=== PATIENT | female | born 1990 | race Caucasian/White ===

== ENCOUNTER 2017-12-14 02:17 | Inpatient (IN) | payer BC ==
[2017-12-13 10:39] LABS: RPR Titer ND
[2017-12-13 10:42] LABS: Absolute Lymphocytes (CBC) 1.9 K/uL (0.7-4.9); Absolute Neutrophil 10.5 K/uL (1.8-8.0); Basophils % 0.3 % (0-1.3); Eosinophils % 0.3 % (0-4.4); Hematocrit 39.8 % (36.0-45.0); Lymphocytes % 14.2 % (15.3-44.8); MCH 30.4 pg (27.0-35.0); MPV 9.6 fL (7.6-11.3); Monocytes % 7.6 % (3.3-12.3); RBC Red Blood Cell Count 4.47 M/uL (3.86-4.86)
[2017-12-13 10:44] LABS: Urine Appearance CLEAR; Urine Bilirubin NEGATIVE (NEG); Urine Blood NEGATIVE (NEG); Urine Color YELLOW; Urine Glucose NEGATIVE (NEG); Urine Protein NEGATIVE (NEG); Urine Urobilinogen 0.2 mg/dL (0.2-1.0)
[2017-12-13 10:49] LABS: Urine Microscopic Reflex ORDER UMIC
[2017-12-13 10:56] LABS: Urine RBC NONE SEEN /HPF (NONE SEEN)
[2017-12-13 10:57] LABS: Urine Bacteria 20-50 /HPF (<20)
[2017-12-13 10:58] LABS: Urine Culture Reflex Order REFLEXED
--- NOTE | 2017-12-13 14:47 | PREOPHP ---
Date of Admission: 12/14/2017 History Of Present Illness: Ms. Zhang is a 27-year-old female, 2, para 1- 0-0-1 at 39+ weeks gestation. She is admitted for repeat section. She has been followed by me during this without significant complications other than prior section. Past Medical History: Please see record. Family History: Please see record. Review of Systems: She reports no recent cough, cold, fever, or chills. No recent nausea or vomiting. She denies any b reast lumps. She denies any bowel or bladder issues. Physical Examination: General: Reveals female in no apparent distress. Neck: Supple without adenopathy or thyromegaly. Lungs: Clear. Cardiac: Regular rate and rhythm without murmurs. Breasts: Not examined. Abdomen: Estimated weight of approximately 8+ pounds. Pelvic: Not performed. Extremities: No cyanosis, clubbing, or edema. Impression: 39+ week , prior section. Plan: The patient will be admitted for delivery by repeat section. She has signed operativ e permit in my presence and appears to understand the risks and benefits. MARQUITA/CHERI Voice ID: [id number]
[2017-12-14 00:21] LABS: RPR (Rapid Plasma Reagin) NON-REACT (NON-REACT)
[~2017-12-14 02:17] MED LIST: Ringers Lactate 1,000 ML IV PRN
[2017-12-14] MEDS ORDERED: FAMOTIDINE 20 MG/2 ML VIAL IV ONE (02:20)
[2017-12-14] MEDS ORDERED: NA CIT/CITRIC AC 30 ML ORAL UDC PO ONE (02:20)
[2017-12-14 02:51] VITALS: BMI 36.6
[2017-12-14] MEDS ORDERED: CEFAZOLIN 2 GM in NA CHLORIDE 0.9% 100 ML IVPB SCH (03:00)
[2017-12-14] MEDS ORDERED: METOCLOPRAMIDE 10 MG/2mL INJ IV ONE (03:00)
[2017-12-14] MEDS ORDERED: Ringers Lactate 1,000 ML IV SCH (03:00)
[2017-12-14] MEDS ORDERED: CARBOPROST TROME 250 MCG/ML IM ONE (03:26)
[2017-12-14] MEDS ORDERED: METHYLERGONOVINE 0.2MG/ML AMP IM PRN ×2 (03:26→05:48)
[2017-12-14] MEDS ORDERED: CEFAZOLIN/SWI 2gm 2 GM/20 ML SYR ONE (04:17)
[2017-12-14] MEDS ORDERED: OXYTOCIN 10 UNIT/ML ML IV ONE (04:32)
[2017-12-14] MEDS ORDERED: MORPHINE SULFATE/PF 1 MG/ML (10 ML AMP) ONE (04:32)
[2017-12-14] MEDS ORDERED: BUPIVACAINE 0.75% (PF) 2 ML SP ONE (04:33)
[2017-12-14] MEDS ORDERED: LIDOCAINE 1% MPF 5 ML VIAL ONE (04:33)
[2017-12-14] MEDS ORDERED: Phenylephrine HCl 10 MG/ML 1 ML VIAL ONE (04:34)
[2017-12-14] MEDS ORDERED: EPHEDRINE SULF 50 MG/ML SYR ONE (04:55)
[2017-12-14] MEDS ORDERED: Oxycodone HCl/Acetaminophen 1 TAB TAB PO PRN (05:48)
[2017-12-14] MEDS ORDERED: ONDANSETRON 4 MG (ODT) TAB PO PRN (05:48)
[2017-12-14] MEDS ORDERED: METHYLERGONOVINE 0.2 MG TAB PO PRN (05:48)
[2017-12-14] MEDS ORDERED: KETOROLAC 30 MG/ML INJ IV PRN (05:48)
[2017-12-14] MEDS ORDERED: CARBOPROST TROME 250 MCG/ML IM PRN (05:48)
--- NOTE | 2017-12-14 05:51 | P.BOP ---
Preoperative diagnosis: 39+ week , prior , vaginal bleeding Postoperative diagnosis: Same, viable female , marginal abruption Primary procedure: Squeegee Tender: Yessenia Cantor Estimated blood loss: Less than 1000ml Specimen: placenta Anesthesia: Spinal Complications: None Drain(s): Urinary catheter Transferred to: Other (277) Condition: Good
[2017-12-14] MEDS ORDERED: PROMETHAZINE 25 MG/ML VIAL ONE (07:26)
[2017-12-14] MEDS ORDERED: PROMETHAZINE 25 MG/ML VIAL IV PRN (07:28)
[2017-12-14] MEDS ORDERED: NALOXONE 0.4 MG/ML VIAL IV PRN (07:29)
[2017-12-14] MEDS ORDERED: DIPHENHYDRAMINE 50 MG/ML VIAL IV PRN (07:29)
--- NOTE | 2017-12-14 18:57 | OP ---
Surgeon: Elfego Kirby MD Anesthesiologist: Dr. John. Preoperative Diagnoses: A 39+ week , prior section, possible placental abruption, spontaneous rupture of membranes. Postoperative Diagnoses: A 39+ week , prior section, possible placental abruption, spontaneous rupture of membranes with confirmed abruption. Procedure: Spinal block anesthesia, repeat section, delivery of viable female . Description Of Procedure: After a satisfactory level of spinal block anesthesia was obtained and the patient had received 2 g of Ancef for antibiotic prophylaxis, she was prepped and draped in the usua l fashion for abdominal surgery. A Pfannenstiel skin incision was made and carried down to the fasci a. Fascia was incised with a combination of sharp and blunt dissection. This was from the underlying rectus muscles. These were divided in the midline. Peritoneum entered bluntly. Vesicou terine peritoneum incised and bladder flap developed. A low-transverse uterine incision was made wit h the aid of short handled Piper forceps. A 7-pound 10 ounce female infant, 9 and 10 was deliv ered. The cord was milked toward the infant as blood clot in the cavity was noted consistent with pl acental abruption and cord blood. The cord was clamped, cut, and the placed in a warmer. Cor d blood was obtained. The placenta was manually removed, noted to have calcifications. The uterus w as then exteriorized. The cervix was dilated from above with a ring clamp, which was passed from the operative field. The uterus was closed in 2 layers utilizing 0 Vicryl suture in a running nonlockin g fashion. The second layer was used to imbricate the first. Vesicouterine peritoneum was reapproxi mated after suturing small hematoma that was forming with a [id number] suture of 0 Vicryl and wa s forming on the left margin of the incision. The uterus was returned to the peritoneal cavity, whic h was cleaned of amniotic fluid, debris, and blood clot. The rectus muscles were approximated in mid line with simple sutures of 0 Vicryl. The fascia was closed with a running suture of #1 Vicryl from either margin to the middle. The skin closed with subcutaneous sutures of 3-0 Vicryl, subdermal sutu re of 3-0 Vicryl, and subcuticular suture of 4-0 Monocryl. The patient was taken to the recovery efrain m in satisfactory condition with Lebron catheter in place. Pharmacy Delivery Driver Surgeon: Marvin Cantor M.D. Estimated Total Blood Loss: Less than 1000 cc. The patient tolerated the procedure well. Sponge and needle counts were correct x2. MARQUITA/CHERI Voice ID: [id number] Report ID: [id number]
[2017-12-14] MEDS: OXYTOCIN/LR 20 UNIT/1,000 ML BAG IV SCH (21:00)
[2017-12-14] MEDS: Oxycodone HCl/Acetaminophen 1 TAB TAB PO PRN (23:06)
[2017-12-15 04:30] LABS: HBsAG Nonreactive (Nonreactive)
[2017-12-15] MEDS: OXYTOCIN/LR 20 UNIT/1,000 ML BAG IV SCH (04:30)
[2017-12-15 05:41] LABS: Absolute Lymphocytes (CBC) 2.2 K/uL (0.7-4.9); Absolute Monocytes 0.8 K/uL (0.1-1.3); Absolute Neutrophil 7.2 K/uL (1.8-8.0); Basophils % 0.3 % (0-1.3); Eosinophils % 1.1 % (0-4.4); Hematocrit 31.6 % (36.0-45.0); Lymphocytes % 21.8 % (15.3-44.8); MCH 31.2 pg (27.0-35.0); MCV 89.2 fL (80-100); Monocytes % 7.5 % (3.3-12.3); RBC Red Blood Cell Count 3.54 M/uL (3.86-4.86)
--- NOTE | 2017-12-15 07:23 | P.PN ---
Date of Service: 12/15/17 S-No complains O-Afeb, vs stable, bandage dry, abdomen, mild gas distention, but soft A-Satisfactory P-D/C Iv, flores, ambulate, advance diet, Mylicon
[2017-12-15] MEDS: Oxycodone HCl/Acetaminophen 1 TAB TAB PO PRN ×4 (09:21→21:13)
[2017-12-15] MEDS ORDERED: IBUPROFEN 400 MG TAB PO PRN (22:15)
[2017-12-16 04:08] VITALS: TEMP 97.2
[2017-12-16] MEDS: Oxycodone HCl/Acetaminophen 1 TAB TAB PO PRN (06:18)
[2017-12-16 07:51] VITALS: BP 142/93
[2017-12-16] MEDS ORDERED: Tdap (Diph,Pertuss(Acell),Tet Vac) 0.5 ML SYR IMVAC ONE (08:11)
--- NOTE | 2017-12-17 08:42 | DS ---
Date of Discharge: 12/16/2017 DISMISSAL SUMMARY Final Hospital Discharge Diagnoses: 39+ week , delivered. Repeat section. Placen irma abruption. Complications: None. Procedures: Spinal block anesthesia, repeat section, delivery of viable female. Hospital Course: The patient is a 27-year-old female, 2, para 1-0-0-1 at 3 9+ weeks gestation, admitted on the day she was scheduled for repeat section with spontaneou s rupture of membranes and vaginal bleeding. She underwent repeat section and delivered a 7 -pound 10 ounce female . At the time of her section, small placental abruption was no [place]. Postoperative course was uncomplicated. Lab work included an admission hemoglobin and hematocr it of 13.6/39.8, dismissal 11.1/31.6. She is Rh positive blood type, rubella immune. She was to be seen back in my office in 1 week for incision check. Urine culture showed greater than 100,000 colon ies of mixed matthew. She was dismissed to continue taking her iron and vitamins with a presc ription for Tylenol No. 3 #15 for pain relief. MARQUITA/CHERI Voice ID: [id number] Report ID: [id number]
== END 2017-12-16 09:45 | disposition home or self-care (01) | DRG 766 ==
LOC: 2ND-WC 02:17
PROVIDERS: ADMIT Specialist; ATTEND Specialist
PROC: 10D00Z1 Extraction of Products of Conception, Low, Open Approach (ICD-10-PCS; principal; 2017-12-14 07:30)
DX: O45.003 Premature separation of placenta with coagulation defect, unspecified, third trimester (principal); Z3A.39 39 weeks gestation of pregnancy; Z37.0 Single live birth; Z23 Encounter for immunization
CPT/HCPCS: 36415; 81003; 81015; 85025; 86592; 86900; 86901; 87086; 87088; 87340; 88307; 90715; J0690; J2210; J2370; J2550; J2590; J2765

== ENCOUNTER 2020-11-14 15:24 | Emergency (ER) | payer BC ==
--- OUTSIDE RECORDS SUMMARY | 2020-11-14 15:28 | XMS REPORT | Continuity of Care Document ---
:1990 Author Organization [facility] t Address [address] [place] [address] Care Team Providers Name Role Phone Pob, Lab Main Attending Clinician Unavailable Femi LAZO Attending Clinician Sony Parkinson Attending Clinician Lab, Fam Pob I Attending Clinician Unavailable Payers Payer Name Policy Type Policy Number Effective Date Expiration Date S ource Problems This patient has no known problems. Allergies, Adverse Reactions, Alerts Allergy Allergy Status Severity Reaction(s) Onset Inactive Treating Comm ents Source Name Type Date Date Clinician No Known DA Active U 2019-0 [facility] Allergie 7-27 [facility] s 00:00: e 00 [facility] Medications This patient has no known medications. Procedures This patient has no known procedures. 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 Randall Martinez NDBRENDA [id number] 14:03:01 14:18:01 Visit Lab Main [place] [id number] [place] 4.2.7.2.686 Professio [phone] nal 353 Building 2020-06-19 2020-06-19 Hospital Miya Kahn [facility] [id number] 13:11:58 23:59:00 Encounter [place] [id number] [place] 4.2.7.2.686 [place] [phone] 2020-04-13 2020-04-13 Emergency James, [facility] [id number] 17:11:00 21:01:00 Miya Cardoza [place] [id number] [place] 4.2.7.2.686 [place] [phone] 2020-03-23 2020-03-23 Laboratory Lab, [facility] [id number] 10:01:52 10:21:52 Only Fam Pob I Health [id number] [place] 4.2.7.2.686 Professio [phone] nal [facility] Office Building One Results Test Description Test Time Test Comments Results Result Comments Source COVID 19 Asymptomatic IH AG 2019-11-29 13:40:00 Test Item Value Reference Range Interpretation Comme nts COVID 19 Asymptomatic IH AG (test code = COVNONPUIAG) NEGATIVE [id number] 13:21:00 RUN DATE: 11/28/19 MODLOFT PAGE 1 RUN TIME: 1321 Specimen Inquiry RUN USER: INTERFACE PATIENT: EMERALD OBANDO LOC: [facility]UZ[facility]O U #: [id number] AGE/SX: 29/F ROOM: [facility] RE11/27/19REG DR: Anastacio Abarca MD : 91 BED: A DIS: STATUS: ADM IN TLOC: SPEC #: [id number] RECD: 11/27/19 STATUS: ESTHELA RE #: [id number] SCARLET: 11/27/19- SUBM DR: Anastacio Abarca MD ENTERED: 11/27/19 SP TYPE: STOMACH OTHR DR: No Primary or Family Physician Uday Ferraro MDORDERED: GROSS COPIES TO: No Primary or Family Physician Anastacio Abarca MD [address] [place] [address] Uday Ferraro MD [address] [place] [address] PROCEDURES: GROSS (11/28/19-112) TISSUES: STOMACH, NOS - PORTION OF STOMACH CLINICAL HISTORY COLLECTION DATE: 11/27/19 MORBID OBESITY FINAL DIAGNOSIS Portion of stomach, laparoscopic sleeve gastrectomy: PORTION OF STOMACH, NO PATHOLOGIC ALTERATION DMW/sm D [id number] MACROSCOPIC The specimen is received in formalin, labeled with the patient's name, and identified as "portion of stomach". It consists of sleeve gastrectomy specimen measuring 17.0 x 4.0 cm with a wall thickness of up to 0.6 cm. The serosal surface is pink with congested vessels. The mucosal edge is stapled closed. A CONTINUED ON NEXT PAGE RUN DATE: 11/28/19 [facility] PAGE 2 RUN TIME: 1321 Specimen Inquiry RUN USER: INTERFACE SPEC #: [id number] PATIENT: EMERALD OBANDO #[id number] (Continued) MACROSCOPIC (Continued) small amount of unremarkable fatty tissue is attached to the opposite surface. The mucosal surface is dark pink withunremarkable folds. No areas of ulceration, nodules or polyps are identified. [employer] Associate tissue is submitted in a single cassette. GROSS PERFORMED AT [facility] [address] [place] [address] (p)[phone] MICROSCOPIC All of the stains, including any controls performed, stain appropriately. MICROSCOPIC PERFORMED AT [facility] [address] [place] [address] (p)[phone] PERFORMING SITE Diagnosis performed at: [facility], [place] [address] [id number] Signed SIGNATURE ON FILE Angela Chester MD 11/28/19 1321 END OF REPORT TSH REFLEX TO [id number] 07:36:00 Test Item Value Reference Range Interpretation Comments TSH REFLEX TO FT4 (test code = 1.0 0.4-5.5 N TSHREFLEX) BASIC METABOLIC [id number] 07:33:00 Test Item Value Reference Range Interpretation Comments SODIUM (test code = 141 mmol/L 136-145 N NA) POTASSIUM (test code 4.2 mmol/L 3.5-5.1 N = K) CHLORIDE (test code = 110.0 mmol/L 98-107 H CL) CARBON DIOXIDE (test 22.0 mmol/L 21-32 N code = CO2) ANION GAP (test code 13.2 10-20 N = GAP) GLUCOSE (test code = 83 mg/dL 74-106 N GLU) BLOOD UREA NITROGEN 8 mg/dL 7-18 N (test code = BUN) GLOMERULAR FILTRATION > 60 mL/min >=60 [place] GFR by RATE (test code = using Wyatt fied MDRD GFR) formula.Chronic kidney disease is defined as [facility] kidney damageor GFR <60 mL/min/1.73 m2 for >3 months. CREATININE (test code 0.70 mg/dL 0.55-1.02 N Note change in = CREAT) reference range due to change in reagent. BUN/CREATININE RATIO 11.3 10-20 N (test code = BUN/CREA) CALCIUM (test code = 9.0 mg/dL 8.5-10.1 N CA) BASIC METABOLIC [id number] 07:15:00 Test Item Value Reference Range Interpretation Comments SODIUM (test code = NA) 141 mmol/L 136-145 N POTASSIUM (test code = K) 4.2 mmol/L 3.5-5.1 N CHLORIDE (test code = CL) 110.0 mmol/L 98-107 H CARBON DIOXIDE (test code = CO2) mmol/L 21-32 ANION GAP (test code = GAP) 10-20 GLUCOSE (test code = GLU) mg/dL 74-106 BLOOD UREA NITROGEN (test code = mg/dL 7-18 BUN) GLOMERULAR FILTRATION RATE (test mL/min >=60 code = GFR) CREATININE (test code = CREAT) mg/dL 0.55-1.02 BUN/CREATININE RATIO (test code 10-20 = BUN/CREA) CALCIUM (test code = CA) mg/dL 8.5-10.1 CBC W/AUTO [id number] 06:54:00 Test Item Value Reference Range Interpretation Comments WHITE BLOOD CELL (test code = 12.1 K/mm3 4.5-12.5 N WBC) RED BLOOD CELL (test code = 4.29 mill/mm3 3.7-5.2 N RBC) HEMOGLOBIN (test code = HGB) 12.7 gram/dL 11.5-15.5 N HEMATOCRIT (test code = HCT) 37.7 % 36.0-46.0 N MEAN CELL VOLUME (test code = 87.9 fL 80-98 N MCV) MEAN CELL HGB (test code = MCH) 29.6 picogram 27.0-33.0 N MEAN CELL HGB CONCETRATION 33.7 gram/dL 33.0-36.0 N (test code = MCHC) RED CELL DISTRIBUTION WIDTH 12.2 % 11.6-16.2 N (test code = RDW) RED CELL DISTRIBUTION WIDTH SD 39.5 fL 37.0-51.0 N (test code = RDW-SD) PLATELET COUNT (test code = 224 K/mm3 150-450 N PLT) MEAN PLATELET VOLUME (test code 10.8 fL 6.7-11.0 N = MPV) NEUTROPHIL % (test code = NT%) 78.9 % 39.0-69.0 H IMMATURE GRANULOCYTE % (test 0.3 % 0.0-5.0 N code = IG%) LYMPHOCYTE % (test code = LY%) 12.4 % 25.0-55.0 L MONOCYTE % (test code = MO%) 8.2 % 0.0-10.0 N EOSINOPHIL % (test code = EO%) 0.0 % 0.0-5.0 N BASOPHIL % (test code = BA%) 0.2 % 0.0-1.0 N NUCLEATED RBC % (test code = 0.0 % 0-0 N NRBC%) NEUTROPHIL # (test code = NT#) 9.57 K/mm3 1.8-7.7 H IMMATURE GRANULOCYTE # (test 0.04 x10 3/uL 0-0.03 H code = IG#) LYMPHOCYTE # (test code = LY#) 1.51 K/mm3 1.0-5.0 N MONOCYTE # (test code = MO#) 1.00 K/mm3 0-0.8 H EOSINOPHIL # (test code = EO#) 0.00 K/mm3 0.0-0.5 N BASOPHIL # (test code = BA#) 0.02 K/mm3 0.0-0.2 N NUCLEATED RBC # (test code = 0.00 K/mm3 0.0-0.1 N NRBC#) [id number] 07:53:00 Test Item Value Reference Range Interpretation Comments GLUBED (test code = 68 mg/dL 74-106 L Performe d by certified GLUBED) 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 [facility] COMPREHENSIVE METABOLIC [id number] 14:08:00 Test Item Value Reference Range Interpretation Comments SODIUM (test code = 140 mmol/L 136-145 N NA) POTASSIUM (test code = 4.0 mmol/L 3.5-5.1 N K) CHLORIDE (test code = 107.0 mmol/L 98-107 N CL) CARBON DIOXIDE (test 28.0 mmol/L 21-32 N code = CO2) ANION GAP (test code = 9.0 10-20 L GAP) GLUCOSE (test code = 80 mg/dL 74-106 N GLU) BLOOD UREA NITROGEN 13 mg/dL 7-18 N (test code = BUN) GLOMERULAR FILTRATION > 60 mL/min >=60 [place] GFR by RATE (test code = GFR) using Modified MDRD formula.Chronic kidney disease is defined as eith er kidney damageor GFR <60 mL/min/1.73 m2 for >3 months. CREATININE (test code 0.70 mg/dL 0.55-1.02 N Note change in = CREAT) reference range due to change in reagent. BUN/CREATININE RATIO 17.5 10-20 N (test code = BUN/CREA) TOTAL PROTEIN (test 7.6 gram/dL 6.4-8.2 N code = PROT) ALBUMIN (test code = 3.9 g/dL 3.4-5.0 N ALB) GLOBULIN (test code = 3.7 gram/dL 2.7-4.2 N GLOB) ALBUMIN/GLOBULIN RATIO 1.1 0.75-1.50 N (test code = A/G) CALCIUM (test code = 9.0 mg/dL 8.5-10.1 N CA) BILIRUBIN TOTAL (test 0.50 mg/dL 0.0-1.0 N code = BILT) SGOT/AST (test code = 13 IUnit/L 15-37 L AST) SGPT/ALT (test code = 27 IUnit/L 12-78 N ALT) ALKALINE PHOSPHATASE 63 IUnit/L 45-117 N Note change in TOTAL (test code = reference range due ALKP) to change in reagent. PROTHROMBIN [id number] 14:05:00 Test Item Value Reference Range Interpretation Comments PROTHROMBIN TIME 12.6 seconds 9.0-14.0 N PATIENT (test code = PTP) INTERNATIONAL NORMAL 1.1 0.8-1.2 N The the rapeutic range RATIO (test code = for oral INR) anticoagulant t herapy formost indicat ions is an internati onal normalized rati o (INR)of between 2.0 and 3.0. The recommended therapeutic INR range for various cli nical situations is l isted below: Clinical Situat ion INR range Pulmonary embol ism treatment (2.0-3.0)Venou s thrombosis treatmentVenous thrombosis prophylaxis (hi gh risk surgery)Prevent ion of systemic emboli sm from: A cute myocardial infa rction Valvula r heart disease Atrial fibrilla tion Mechanical pros thetic heart valves (2.5-3.5) IS PATIENT ON ANTICOAGULANTS? NTHROMBOPLASTIN TIME [id number] 14:05:00 Test Item Value Reference Range Interpretation Comments THROMBOPLASTIN TIME PARTIAL 30.3 seconds 23.0-37.0 N (test code = PTT) IS PATIENT ON ANTICOAGULANTS? NCOMPREHENSIVE METABOLIC [id number] 14:01:00 Test Item Value Reference Range Interpretation Comments SODIUM (test code = NA) 140 mmol/L 136-145 N POTASSIUM (test code = K) 4.0 mmol/L 3.5-5.1 N CHLORIDE (test code = CL) 107.0 mmol/L 98-107 N CARBON DIOXIDE (test code = CO2) mmol/L 21-32 ANION GAP (test code = GAP) 10-20 GLUCOSE (test code = GLU) mg/dL 74-106 BLOOD UREA NITROGEN (test code = mg/dL 7-18 BUN) GLOMERULAR FILTRATION RATE (test mL/min >=60 code = GFR) CREATININE (test code = CREAT) mg/dL 0.55-1.02 BUN/CREATININE RATIO (test code 10-20 = BUN/CREA) TOTAL PROTEIN (test code = PROT) gram/dL 6.4-8.2 ALBUMIN (test code = ALB) g/dL 3.4-5.0 GLOBULIN (test code = GLOB) gram/dL 2.7-4.2 ALBUMIN/GLOBULIN RATIO (test 0.75-1.50 code = A/G) CALCIUM (test code = CA) mg/dL 8.5-10.1 BILIRUBIN TOTAL (test code = mg/dL 0.0-1.0 BILT) SGOT/AST (test code = AST) IUnit/L 15-37 SGPT/ALT (test code = ALT) IUnit/L 12-78 ALKALINE PHOSPHATASE TOTAL (test IUnit/L 45-117 code = ALKP) HCG SERUM [id number] 13:59:00 Test Item Value Reference Range Interpretation Comments HCG SERUM QUAL (test NEGATIVE NEGATIVE This GQL test is NOT code = HCGQL) applicable for MALE patients.Check with nurse about probable order error.If Tumor Marker Test needed, nu rse should order test "HCG TU"(Test #550.63225)---- - CBC W/AUTO [id number] 13:57:00 Test Item Value Reference Range Interpretation Comments WHITE BLOOD CELL (test code = K/mm3 4.5-12.5 WBC) RED BLOOD CELL (test code = RBC) mill/mm3 3.7-5.2 HEMOGLOBIN (test code = HGB) 13.5 gram/dL 11.5-15.5 N HEMATOCRIT (test code = HCT) 41.1 % 36.0-46.0 N MEAN CELL VOLUME (test code = fL 80-98 MCV) MEAN CELL HGB (test code = MCH) picogram 27.0-33.0 MEAN CELL HGB CONCETRATION (test gram/dL 33.0-36.0 code = MCHC) RED CELL DISTRIBUTION WIDTH % 11.6-16.2 (test code = RDW) RED CELL DISTRIBUTION WIDTH SD fL 37.0-51.0 (test code = RDW-SD) PLATELET COUNT (test code = PLT) 261 K/mm3 150-450 N MEAN PLATELET VOLUME (test code fL 6.7-11.0 = MPV) NEUTROPHIL % (test code = NT%) % 39.0-69.0 IMMATURE GRANULOCYTE % (test % 0.0-5.0 code = IG%) LYMPHOCYTE % (test code = LY%) % 25.0-55.0 MONOCYTE % (test code = MO%) % 0.0-10.0 EOSINOPHIL % (test code = EO%) % 0.0-5.0 BASOPHIL % (test code = BA%) % 0.0-1.0 NEUTROPHIL # (test code = NT#) K/mm3 1.8-7.7 LYMPHOCYTE # (test code = LY#) K/mm3 1.0-5.0 MONOCYTE # (test code = MO#) K/mm3 0-0.8 EOSINOPHIL # (test code = EO#) K/mm3 0.0-0.5 BASOPHIL # (test code = BA#) K/mm3 0.0-0.2 CBC W/AUTO [id number] 13:57:00 Test Item Value Reference Range Interpretation Comments WHITE BLOOD CELL (test code = 6.7 K/mm3 4.5-12.5 N WBC) RED BLOOD CELL (test code = 4.64 mill/mm3 3.7-5.2 N RBC) HEMOGLOBIN (test code = HGB) 13.5 gram/dL 11.5-15.5 N HEMATOCRIT (test code = HCT) 41.1 % 36.0-46.0 N MEAN CELL VOLUME (test code = 88.6 fL 80-98 N MCV) MEAN CELL HGB (test code = MCH) 29.1 picogram 27.0-33.0 N MEAN CELL HGB CONCETRATION 32.8 gram/dL 33.0-36.0 L (test code = MCHC) RED CELL DISTRIBUTION WIDTH 12.2 % 11.6-16.2 N (test code = RDW) RED CELL DISTRIBUTION WIDTH SD 39.3 fL 37.0-51.0 N (test code = RDW-SD) PLATELET COUNT (test code = 261 K/mm3 150-450 N PLT) MEAN PLATELET VOLUME (test code 11.1 fL 6.7-11.0 H = MPV) NEUTROPHIL % (test code = NT%) 62.6 % 39.0-69.0 N IMMATURE GRANULOCYTE % (test 0.1 % 0.0-5.0 N code = IG%) LYMPHOCYTE % (test code = LY%) 31.0 % 25.0-55.0 N MONOCYTE % (test code = MO%) 5.1 % 0.0-10.0 N EOSINOPHIL % (test code = EO%) 0.6 % 0.0-5.0 N BASOPHIL % (test code = BA%) 0.6 % 0.0-1.0 N NUCLEATED RBC % (test code = 0.0 % 0-0 N NRBC%) NEUTROPHIL # (test code = NT#) 4.21 K/mm3 1.8-7.7 N IMMATURE GRANULOCYTE # (test 0.01 x10 3/uL 0-0.03 N code = IG#) LYMPHOCYTE # (test code = LY#) 2.08 K/mm3 1.0-5.0 N MONOCYTE # (test code = MO#) 0.34 K/mm3 0-0.8 N EOSINOPHIL # (test code = EO#) 0.04 K/mm3 0.0-0.5 N BASOPHIL # (test code = BA#) 0.04 K/mm3 0.0-0.2 N NUCLEATED RBC # (test code = 0.00 K/mm3 0.0-0.1 N NRBC#) URINALYSIS [id number] 13:54:00 Test Item Value Reference Range Interpretation Comments UA COLOR (test code = COLU) Light-Yellow YELLOW UA APPEARANCE (test code = CLEAR CLEAR APPU) UA GLUCOSE DIPSTICK (test NEGATIVE mg/dL NEGATIVE code = DGLUU) UA BILIRUBIN DIPSTICK (test NEGATIVE mg/dL NEGATIVE code = BILU) UA KETONE DIPSTICK (test code NEGATIVE mg/dL NEGATIVE = KETU) UA SPECIFIC GRAVITY (test 1.024 1.001-1.035 code = SGU) UA BLOOD DIPSTICK (test code Negative mg/dL NEGATIVE = SUHAS) UA PH DIPSTICK (test code = 6.0 5.0-8.0 MARIO) UA PROTEIN DIPSTICK (test NEGATIVE mg/dL NEGATIVE code = PROU) UA UROBILINIOGEN DIPSTICK Normal mg/dL NEGATIVE (test code = URO) UA NITRITE DIPSTICK (test NEGATIVE NEGATIVE code = LISE) UA LEUKOCYTE ESTERASE W NEGATIVE Delvin/uL NEGATIVE REFLEX (test code = LEUUR) UA WBC (test code = WBCU) 0-5 per HPF 0-5 UA RBC (test code = RBCU) 0-2 #/HPF 0-5 UA EPITHELIAL CELLS (test FEW per HPF FEW code = EPIU) UA BACTERIA (test code = NONE SEEN #/HPF NONE BACU) UA MUCUS (test code = MUCU) FEW #/LPF FEW Urine Source? Clean CatchURINALYSIS [id number] 13:53:00 Test Item Value Reference Range Interpretation Comments UA COLOR (test code = COLU) Light-Yellow YELLOW UA APPEARANCE (test code = CLEAR CLEAR APPU) UA GLUCOSE DIPSTICK (test NEGATIVE mg/dL NEGATIVE code = DGLUU) UA BILIRUBIN DIPSTICK (test NEGATIVE mg/dL NEGATIVE code = BILU) UA KETONE DIPSTICK (test code NEGATIVE mg/dL NEGATIVE = KETU) UA SPECIFIC GRAVITY (test 1.024 1.001-1.035 code = SGU) UA BLOOD DIPSTICK (test code Negative mg/dL NEGATIVE = SUHAS) UA PH DIPSTICK (test code = 6.0 5.0-8.0 MARIO) UA PROTEIN DIPSTICK (test NEGATIVE mg/dL NEGATIVE code = PROU) UA UROBILINIOGEN DIPSTICK Normal mg/dL NEGATIVE (test code = URO) UA NITRITE DIPSTICK (test NEGATIVE NEGATIVE code = LISE) UA LEUKOCYTE ESTERASE W NEGATIVE Delvin/uL NEGATIVE REFLEX (test code = LEUUR) UA WBC (test code = WBCU) per HPF 0-5 UA RBC (test code = RBCU) per HPF 0-5 UA EPITHELIAL CELLS (test per HPF Few code = EPIU) UA BACTERIA (test code = per HPF NONE BACU) Urine Source? Clean CatchLIPID PROFILE (CORONARY RISK)[id number] 07:15:00 Test Item Value Reference Range Interpretation Comments TRIGLYCERIDES (test 230 mg/dL 20-150 H code = TRIG) CHOLESTEROL (test code 183 mg/dL 0-200 N = CHOL) CHOLESTEROL/HDL RATIO 5.0 RATIO 0-4.9 H RISK A SSOCIATED WITH (test code = CHOLHDL) CHOL/H DL RATIOS: Risk M christina Female1/[address] RAGE 3.43 3.27AVERAGE 4.97 4.4 43X AVERAGE 9[address] RAGE 23.39 11.04 REFERENCE VALUE IS RELATED TO RISK LEVELS ASRECOMMENDED B Y THE MERON. HEART, SOLA G, AND BLOOD INST. HDL CHOLESTEROL (test 33 mg/dL 40-60 L code = HDL) LIPOPROTEIN LDL (test 117 mg/dL 100-129 N RN PER IVELISSE, CONTACT code = LDL) PHYSICIAN IMMED IATELY IF THIS IS A ST ROKE, AMI OR CAROTID STENOSIS PATIEN T WHEN THE LDL >100 ([address] [facility]ENCE, THIS ADMISSION)===== ======= ======= ======= ===Reference In terval: mg/dL mmol/L-------- ------- ------- ------- Optimal <100 <2.6Near/above optimal 100-12 9 2.6-3.3Borderl ine High 130-159 3.4-4.1High 160 -189 4.1-4.9Very High >=190 >=4.9========= This LDL result is a direct measurement.=== ====== HEPATIC FUNCTION [id number] 07:15:00 Test Item Value Reference Range Interpretation Comments TOTAL PROTEIN (test 7.5 gram/dL 6.4-8.2 N code = PROT) ALBUMIN (test code = 4.1 g/dL 3.4-5.0 N ALB) GLOBULIN (test code = 3.4 gram/dL 2.7-4.2 N GLOB) ALBUMIN/GLOBULIN RATIO 1.2 0.75-1.50 N (test code = A/G) BILIRUBIN TOTAL (test 0.30 mg/dL 0.0-1.0 N code = BILT) BILIRUBIN DIRECT (test 0.08 mg/dL 0.0-0.20 N code = BILD) SGOT/AST (test code = 12 IUnit/L 15-37 L AST) SGPT/ALT (test code = 29 IUnit/L 12-78 N ALT) ALKALINE PHOSPHATASE 63 IUnit/L 45-117 N Note change in TOTAL (test code = reference range due ALKP) to change in reagent. HCG SERUM [id number] 07:15:00 Test Item Value Reference Range Interpretation Comments HCG SERUM QUAL (test NEGATIVE NEGATIVE This HC GQL test is NOT code = HCGQL) applicable for MALE patients.Check with nurse about probable order error.If Tumor Marker Test needed, nu rse should order test "HCG TU"(Test #[id number])---- - VITAMIN [id number] 07:15:00 Test Item Value Reference Range Interpretation Comments VITAMIN B12 (test code = VITB12) 690 pg/mL 193-986 N FOLIC [id number] 07:15:00 Test Item Value Reference Range Interpretation Comments FOLIC ACID (test code = FOL) 6.8 ng/mL 3.10-17.50 N THYROID PROFILE [id number] 07:15:00 Test Item Value Reference Range Interpretation Comments T3 UPTAKE (test code = 38.0 % 30.0-40.0 N T3UP) T4 (THYROXINE) (test 9.5 ug/dL 4.5-13.9 N code = T4) T7 (FREE THYROXINE 3.61 FTI 1.3-5.1 N INDEX) (test code = T7) THYROID STIMULATING 1.990 uIU/mL 0.36-3.74 N TSH REFE RENCE HORMONE (test code = RANGES: EUTHYROID: TSH) 0.35 - 4.3 mIU/mL HYPO : > 5.5 mIU/mL HYPER : < 0.35 mIU/mL VIT B1 WHOLE [id number] 07:15:00 Test Item Value Reference Range Interpretation Comments VIT B1 WHOLE BLOOD 146.9 nmol/L 66.5-200.0 Performed At: (test code = [facility] [id number]) [place], [place] [id number] aide Pastrana MD Ph:[phone] AB HIV 1 14:26:00 Test Item Value Reference Range Interpretation Comments AB HIV 1 2 Nonreactive NonReactive It is recognize d that (test code = currently avail able [id number]) assays for thed etection of antibodies t o HIV-1 and/or HIV-2 ma y notdetect all i nfected individuals. A negative test result barajas snot exclude the pos sibility of exposure to or infection withH IV. HIV antibodies may be undetectable in some stages ofthe in fection and in some cli nical conditions. LIPID PROFILE (CORONARY RISK)2019-11-13 13:04:00 Test Item Value Reference Range Interpretation Comments TRIGLYCERIDES (test 230 mg/dL 20-150 H code = TRIG) CHOLESTEROL (test code 183 mg/dL 0-200 N = CHOL) CHOLESTEROL/HDL RATIO 5.0 RATIO 0-4.9 H RISK A SSOCIATED WITH (test code = CHOLHDL) CHOL/H DL RATIOS: Risk M christina Female1/[address] RAGE 3.43 3.27AVERAGE 4.97 4.4 43X AVERAGE 9.[address] RAGE 23.39 11.04 REFERENCE VALUE IS RELATED TO RISK LEVELS ASRECOMMENDED B Y THE MERON. HEART, SOLA G, AND BLOOD INST. HDL CHOLESTEROL (test 33 mg/dL 40-60 L code = HDL) LIPOPROTEIN LDL (test 117 mg/dL 100-129 N RN PER IVELISSE, CONTACT code = LDL) PHYSICIAN IMMED IATELY IF THIS IS A ST ROKE, AMI OR CAROTID STENOSIS PATIEN T WHEN THE LDL >100 ([address] [facility]ENCE, THIS ADMISSION)===== ======= ======= ======= ===Reference In terval: mg/dL mmol/L-------- ------- ------- ------- Optimal <100 <2.6Near/above optimal 100-12 9 2.6-3.3Borderl ine High 130-159 3.4-4.1High 160 -189 4.1-4.9Very High >=190 >=4.9========= This LDL result is a direct measurement.=== ====== HEPATIC FUNCTION [id number] 13:04:00 Test Item Value Reference Range Interpretation Comments TOTAL PROTEIN (test 7.5 gram/dL 6.4-8.2 N code = PROT) ALBUMIN (test code = 4.1 g/dL 3.4-5.0 N ALB) GLOBULIN (test code = 3.4 gram/dL 2.7-4.2 N GLOB) ALBUMIN/GLOBULIN RATIO 1.2 0.75-1.50 N (test code = A/G) BILIRUBIN TOTAL (test 0.30 mg/dL 0.0-1.0 N code = BILT) BILIRUBIN DIRECT (test 0.08 mg/dL 0.0-0.20 N code = BILD) SGOT/AST (test code = 12 IUnit/L 15-37 L AST) SGPT/ALT (test code = 29 IUnit/L 12-78 N ALT) ALKALINE PHOSPHATASE 63 IUnit/L 45-117 N Note change in TOTAL (test code = reference range due ALKP) to change in reagent. HCG SERUM [id number] 13:04:00 Test Item Value Reference Range Interpretation Comments HCG SERUM QUAL (test NEGATIVE NEGATIVE This HC GQL test is NOT code = HCGQL) applicable for MALE patients.Check with nurse about probable order error.If Tumor Marker Test needed, nu rse should order test "HCG TU"(Test #[id number])---- - VITAMIN [id number] 13:04:00 Test Item Value Reference Range Interpretation Comments VITAMIN B12 (test code = VITB12) 690 pg/mL 193-986 N FOLIC [id number] 13:04:00 Test Item Value Reference Range Interpretation Comments FOLIC ACID (test code = FOL) 6.8 ng/mL 3.10-17.50 N THYROID PROFILE [id number] 13:04:00 Test Item Value Reference Range Interpretation Comments T3 UPTAKE (test code = 38.0 % 30.0-40.0 N T3UP) T4 (THYROXINE) (test 9.5 ug/dL 4.5-13.9 N code = T4) T7 (FREE THYROXINE 3.61 FTI 1.3-5.1 N INDEX) (test code = T7) THYROID STIMULATING 1.990 uIU/mL 0.36-3.74 N TSH REFE RENCE HORMONE (test code = RANGES: EUTHYROID: TSH) 0.35 - 4.3 mIU/mL HYPO : > 5.5 mIU/mL HYPER : < 0.35 mIU/mL VIT B1 WHOLE [id number] 13:04:00 Test Item Value Reference Range Interpretation Comments VIT B1 WHOLE BLOOD (test code = nmol/L 87-280 [id number]) URINALYSIS [id number] 12:59:00 Test Item Value Reference Range Interpretation Comments UA COLOR (test code = COLU) COLORLESS YELLOW A UA APPEARANCE (test code = CLEAR CLEAR APPU) UA GLUCOSE DIPSTICK (test NEGATIVE mg/dL NEGATIVE code = DGLUU) UA BILIRUBIN DIPSTICK (test NEGATIVE mg/dL NEGATIVE code = BILU) UA KETONE DIPSTICK (test NEGATIVE mg/dL NEGATIVE code = KETU) UA SPECIFIC GRAVITY (test 1.013 1.001-1.035 code = SGU) UA BLOOD DIPSTICK (test Negative mg/dL NEGATIVE code = SUHAS) UA PH DIPSTICK (test code = 5.5 5.0-8.0 MARIO) UA PROTEIN DIPSTICK (test NEGATIVE mg/dL NEGATIVE code = PROU) UA UROBILINIOGEN DIPSTICK Normal mg/dL NEGATIVE (test code = URO) UA NITRITE DIPSTICK (test NEGATIVE NEGATIVE code = LISE) UA LEUKOCYTE ESTERASE W NEGATIVE Delvin/uL NEGATIVE REFLEX (test code = LEUUR) UA WBC (test code = WBCU) 0-5 per HPF 0-5 UA RBC (test code = RBCU) 0-2 #/HPF 0-5 UA EPITHELIAL CELLS (test FEW per HPF FEW code = EPIU) UA BACTERIA (test code = NONE SEEN per HPF NONE BACU) Urine Source? Clean CatchLIPID PROFILE (CORONARY RISK)[id number] 12:55:00 Test Item Value Reference Range Interpretation Comments TRIGLYCERIDES (test 230 mg/dL 20-150 H code = TRIG) CHOLESTEROL (test code 183 mg/dL 0-200 N = CHOL) CHOLESTEROL/HDL RATIO 5.0 RATIO 0-4.9 H RISK A SSOCIATED WITH (test code = CHOLHDL) CHOL/H DL RATIOS: Risk M christina Female1/[address] RAGE 3.43 3.27AVERAGE 4.97 4.4 43X AVERAGE 9.[address] RAGE 23.39 11.04 REFERENCE VALUE IS RELATED TO RISK LEVELS ASRECOMMENDED B Y THE MER[facility]. HEART, SOLA G, AND BLOOD INST. HDL CHOLESTEROL (test 33 mg/dL 40-60 L code = HDL) LIPOPROTEIN LDL (test 117 mg/dL 100-129 N RN PER IVELISSE, CONTACT code = LDL) PHYSICIAN IMMED IATELY IF THIS IS A ST RO[place], AMI OR CAROTID STENOSIS PATIEN T WHEN THE LDL >100 ([address] OCCURENCE, THIS ADMISSION)===== ======= ======= ======= ===Reference In terval: mg/dL mmol/L-------- ------- ------- ------- Optimal <100 <2.6Near/above optimal 100-12 9 2.6-3.3Borderl ine High 130-159 3.4-4.1High 160 -189 4.1-4.9Very High >=190 >=4.9========= This LDL result is a direct measurement.=== ====== HEPATIC FUNCTION [id number] 12:55:00 Test Item Value Reference Range Interpretation Comments TOTAL PROTEIN (test 7.5 gram/dL 6.4-8.2 N code = PROT) ALBUMIN (test code = 4.1 g/dL 3.4-5.0 N ALB) GLOBULIN (test code = 3.4 gram/dL 2.7-4.2 N GLOB) ALBUMIN/GLOBULIN RATIO 1.2 0.75-1.50 N (test code = A/G) BILIRUBIN TOTAL (test 0.30 mg/dL 0.0-1.0 N code = BILT) BILIRUBIN DIRECT (test 0.08 mg/dL 0.0-0.20 N code = BILD) SGOT/AST (test code = 12 IUnit/L 15-37 L AST) SGPT/ALT (test code = 29 IUnit/L 12-78 N ALT) ALKALINE PHOSPHATASE 63 IUnit/L 45-117 N Note change in TOTAL (test code = reference range due ALKP) to change in reagent. HCG SERUM [id number] 12:55:00 Test Item Value Reference Range Interpretation Comments HCG SERUM QUAL (test code = HCGQL) NEGATIVE VITAMIN [id number] 12:55:00 Test Item Value Reference Range Interpretation Comments VITAMIN B12 (test code = VITB12) 690 pg/mL 193-986 N FOLIC [id number] 12:55:00 Test Item Value Reference Range Interpretation Comments FOLIC ACID (test code = FOL) 6.8 ng/mL 3.10-17.50 N THYROID PROFILE [id number] 12:55:00 Test Item Value Reference Range Interpretation Comments T3 UPTAKE (test code = 38.0 % 30.0-40.0 N T3UP) T4 (THYROXINE) (test 9.5 ug/dL 4.5-13.9 N code = T4) T7 (FREE THYROXINE 3.61 FTI 1.3-5.1 N INDEX) (test code = T7) THYROID STIMULATING 1.990 uIU/mL 0.36-3.74 N TSH REFE RENCE HORMONE (test code = RANGES: EUTHYROID: TSH) 0.35 - 4.3 mIU/mL HYPO : > 5.5 mIU/mL HYPER : < 0.35 mIU/mL VIT B1 WHOLE [id number] 12:55:00 Test Item Value Reference Range Interpretation Comments VIT B1 WHOLE BLOOD (test code = nmol/L 87-280 [id number]) URINALYSIS [id number] 12:53:00 Test Item Value Reference Range Interpretation Comments UA COLOR (test code = COLU) COLORLESS YELLOW A UA APPEARANCE (test code = CLEAR CLEAR APPU) UA GLUCOSE DIPSTICK (test NEGATIVE mg/dL NEGATIVE code = DGLUU) UA BILIRUBIN DIPSTICK (test NEGATIVE mg/dL NEGATIVE code = BILU) UA KETONE DIPSTICK (test code NEGATIVE mg/dL NEGATIVE = KETU) UA SPECIFIC GRAVITY (test 1.013 1.001-1.035 code = SGU) UA BLOOD DIPSTICK (test code Negative mg/dL NEGATIVE = SUHAS) UA PH DIPSTICK (test code = 5.5 5.0-8.0 MARIO) UA PROTEIN DIPSTICK (test NEGATIVE mg/dL NEGATIVE code = PROU) UA UROBILINIOGEN DIPSTICK Normal mg/dL NEGATIVE (test code = URO) UA NITRITE DIPSTICK (test NEGATIVE NEGATIVE code = LISE) UA LEUKOCYTE ESTERASE W NEGATIVE Delvin/uL NEGATIVE REFLEX (test code = LEUUR) UA WBC (test code = WBCU) per HPF 0-5 UA RBC (test code = RBCU) per HPF 0-5 UA EPITHELIAL CELLS (test per HPF Few code = EPIU) UA BACTERIA (test code = per HPF NONE BACU) Urine Source? Clean CatchCOMPREHENSIVE METABOLIC [id number] 12:29:00 Test Item Value Reference Range Interpretation Comments SODIUM (test code = 139 mmol/L 136-145 N NA) POTASSIUM (test code = 4.1 mmol/L 3.5-5.1 N K) CHLORIDE (test code = 108.0 mmol/L 98-107 H CL) CARBON DIOXIDE (test 25.0 mmol/L 21-32 N code = CO2) ANION GAP (test code = 10.1 10-20 N GAP) GLUCOSE (test code = 92 mg/dL 74-106 N GLU) BLOOD UREA NITROGEN 15 mg/dL 7-18 N (test code = BUN) GLOMERULAR FILTRATION > 60 mL/min >=60 [place] GFR by RATE (test code = GFR) using Modified MDRD formula.Chronic kidney disease is defined as [facility] kidney damageor GFR <60 mL/min/1.73 m2 for >3 months. CREATININE (test code 0.90 mg/dL 0.55-1.02 N Note change in = CREAT) reference range due to change in reagent. BUN/CREATININE RATIO 17.1 10-20 N (test code = BUN/CREA) TOTAL PROTEIN (test 8.0 gram/dL 6.4-8.2 N code = PROT) ALBUMIN (test code = 4.0 g/dL 3.4-5.0 N ALB) GLOBULIN (test code = 4.0 gram/dL 2.7-4.2 N GLOB) ALBUMIN/GLOBULIN RATIO 1.0 0.75-1.50 N (test code = A/G) CALCIUM (test code = 9.8 mg/dL 8.5-10.1 N CA) BILIRUBIN TOTAL (test 0.20 mg/dL 0.0-1.0 N code = BILT) SGOT/AST (test code = 12 IUnit/L 15-37 L AST) SGPT/ALT (test code = 32 IUnit/L 12-78 N ALT) ALKALINE PHOSPHATASE 65 IUnit/L 45-117 N Note change in TOTAL (test code = reference range due ALKP) to change in reagent. COMPREHENSIVE METABOLIC [id number] 12:23:00 Test Item Value Reference Range Interpretation Comments SODIUM (test code = NA) 139 mmol/L 136-145 N POTASSIUM (test code = K) 4.1 mmol/L 3.5-5.1 N CHLORIDE (test code = CL) 108.0 mmol/L 98-107 H CARBON DIOXIDE (test code = CO2) mmol/L 21-32 ANION GAP (test code = GAP) 10-20 GLUCOSE (test code = GLU) mg/dL 74-106 BLOOD UREA NITROGEN (test code = mg/dL 7-18 BUN) GLOMERULAR FILTRATION RATE (test mL/min >=60 code = GFR) CREATININE (test code = CREAT) mg/dL 0.55-1.02 BUN/CREATININE RATIO (test code 10-20 = BUN/CREA) TOTAL PROTEIN (test code = PROT) gram/dL 6.4-8.2 ALBUMIN (test code = ALB) g/dL 3.4-5.0 GLOBULIN (test code = GLOB) gram/dL 2.7-4.2 ALBUMIN/GLOBULIN RATIO (test 0.75-1.50 code = A/G) CALCIUM (test code = CA) mg/dL 8.5-10.1 BILIRUBIN TOTAL (test code = mg/dL 0.0-1.0 BILT) SGOT/AST (test code = AST) IUnit/L 15-37 SGPT/ALT (test code = ALT) IUnit/L 12-78 ALKALINE PHOSPHATASE TOTAL (test IUnit/L 45-117 code = ALKP) [id number] 12:10:00 Test Item Value Reference Range Interpretation Comments GLYCOSYLATED HEMOGLOBIN 5.2 % HbA1 EFRENG GELYD DIAGNOSIS: (HA1C) (test code = HbA1C GLYHGB) (%) ----- ----- Diab etic >6.4Prediabetes 5.7 - 6.4Normal <5.7 ESTIMATED AVERAGE 103 MG/DL GLUCOSE (test code = EAG) PROTHROMBIN [id number] 12:09:00 Test Item Value Reference Range Interpretation Comments PROTHROMBIN TIME 11.2 seconds 9.0-14.0 N PATIENT (test code = PTP) INTERNATIONAL NORMAL 1.0 0.8-1.2 N The the rapeutic range RATIO (test code = for oral INR) anticoagulant t herapy formost indicat ions is an internati onal normalized rati o (INR)of between 2.0 and 3.0. The recommended therapeutic INR range for various cli nical situations is l isted below: Clinical Situat ion INR range Pulmonary embol ism treatment (2.0-3.0)Venou s thrombosis treatmentVenous thrombosis prophylaxis (hi gh risk surgery)Prevent ion of systemic emboli sm from: A cute myocardial infa rction Valvula r heart disease Atrial fibrilla tion Mechanical pros thetic heart valves (2.5-3.5) IS PATIENT ON ANTICOAGULANTS? NTHROMBOPLASTIN TIME [id number] 12:09:00 Test Item Value Reference Range Interpretation Comments THROMBOPLASTIN TIME PARTIAL 31.1 seconds 23.0-37.0 N (test code = PTT) IS PATIENT ON ANTICOAGULANTS? NAB HELICOBACTER [id number] 11:59:00 Test Item Value Reference Range Interpretation Comments AB HELICOBACTER IGG (test code = NEGATIVE NEGATIVE HELIGAB) COVID 19 Asymptomatic IH [id number] 11:57:00 Test Item Value Reference Range Interpretation Comments COVID 19 Asymptomatic IH AG (test NEGATIVE code = COVNONPUIAG) CBC W/AUTO [id number] 11:57:00 Test Item Value Reference Range Interpretation Comments WHITE BLOOD CELL (test code = 6.4 K/mm3 4.5-12.5 N WBC) RED BLOOD CELL (test code = 4.65 mill/mm3 3.7-5.2 N RBC) HEMOGLOBIN (test code = HGB) 13.7 gram/dL 11.5-15.5 N HEMATOCRIT (test code = HCT) 41.1 % 36.0-46.0 N MEAN CELL VOLUME (test code = 88.4 fL 80-98 N MCV) MEAN CELL HGB (test code = MCH) 29.5 picogram 27.0-33.0 N MEAN CELL HGB CONCETRATION 33.3 gram/dL 33.0-36.0 N (test code = MCHC) RED CELL DISTRIBUTION WIDTH 12.3 % 11.6-16.2 N (test code = RDW) RED CELL DISTRIBUTION WIDTH SD 39.6 fL 37.0-51.0 N (test code = RDW-SD) PLATELET COUNT (test code = 255 K/mm3 150-450 N PLT) MEAN PLATELET VOLUME (test code 10.8 fL 6.7-11.0 N = MPV) NEUTROPHIL % (test code = NT%) 56.8 % 39.0-69.0 N IMMATURE GRANULOCYTE % (test 0.3 % 0.0-5.0 N code = IG%) LYMPHOCYTE % (test code = LY%) 33.8 % 25.0-55.0 N MONOCYTE % (test code = MO%) 6.9 % 0.0-10.0 N EOSINOPHIL % (test code = EO%) 1.6 % 0.0-5.0 N BASOPHIL % (test code = BA%) 0.6 % 0.0-1.0 N NUCLEATED RBC % (test code = 0.0 % 0-0 N NRBC%) NEUTROPHIL # (test code = NT#) 3.65 K/mm3 1.8-7.7 N IMMATURE GRANULOCYTE # (test 0.02 x10 3/uL 0-0.03 N code = IG#) LYMPHOCYTE # (test code = LY#) 2.17 K/mm3 1.0-5.0 N MONOCYTE # (test code = MO#) 0.44 K/mm3 0-0.8 N EOSINOPHIL # (test code = EO#) 0.10 K/mm3 0.0-0.5 N BASOPHIL # (test code = BA#) 0.04 K/mm3 0.0-0.2 N NUCLEATED RBC # (test code = 0.00 K/mm3 0.0-0.1 N NRBC#) MANUAL DIFF REQUIRED (test code NO = TEJAS) - XR CHEST 2 [id number] 11:13:00 FAX: Anastacio Malloy MD [phone] [place]: O St: PRE Name: EMERALD OBANDO [facility] : 1990 Age/S: 29/F [address] [facility] Unit#: [id number] Loc: [place] [address] Phys: Anastacio Abarca MD Acct: [id number] Dis Date: Status: PRE SDC PHONE #: [phone] Exam Date: 11/13/2019 1055 FAX #: [phone] Reason: PRE OP EXAMS: CPT CODE: [id number] XR CHEST 2 V [id number] REASON FOR EXAM: PRE OP Exam Order Date:11/13/2019 10:47 AM Ordering M.Chu: Anastacio Abarca MD PROCEDURE: - XR CH EST 2 V COMPARISON: None FINDINGS: The lungs are clear. There is no pleural effusion or pneumothorax. Pulmonary vascularity is within normal limits. Cardiomediastinal silhouette is normal in size for technique. The mediastinal contours arewithin normal limits. Musculoskeletal structures are within normal limits. The visualized upper abdomen is within normal limits. IMPRESSION: No acute cardiopulmonary process. Location: [facility] at 1113 Reported and signed by: James Rincon MD CC: Anastacio Abarca MD Technologist: Miya Blanton RT(R) Trnscrd Date/Time/By: 11/13/2019 (1113) : By: [email or web address] Orig Print D/T:S: 11/13/2019 (1116) PAGE 1 Signed Report
[2020-11-14 17:01] LABS: Urine Blood Trace-intact (Negative); Urine Glucose Trace (Negative); Urine Protein 1+ (Negative); Urine pH 8.5 (5.0-7.0)
[2020-11-14] MEDS ORDERED: IBUPROFEN 200 MG TAB PO ONE (17:06)
[2020-11-14] MEDS ORDERED: IBUPROFEN 400 MG TAB ONE (17:06)
[2020-11-14 17:10] LABS: Absolute Lymphocytes (CBC) 1.1 K/uL (0.7-4.9); Basophils % 0.5 % (0-1.3); Hematocrit 31.2 % (36.0-45.0); Lymphocytes % 11.3 % (15.3-44.8); MPV 7.3 fL (7.6-11.3); RBC Red Blood Cell Count 3.76 M/uL (3.86-4.86)
[2020-11-14] MEDS ORDERED: ACETAMINOPHEN 500 MG TAB ONE (17:14)
[2020-11-14 17:23] LABS: Potassium 3.9 mmol/L (3.5-5.1)
[2020-11-14 17:47] LABS: Urine Bacteria 20-50 /HPF (<20); Urine RBC <5 /HPF (NONE SEEN)
--- NOTE | 2020-11-14 18:33 | RAD REPORT ---
EXAM DESCRIPTION: CTAbdomen Pelvis W Contrast - 11/14/2020 6:21 pm CLINICAL HISTORY: Abdominal pain. Fever;Flank pain COMPARISON: CT ABD PELVIS W CONTRAST dated 12/18/2013 TECHNIQUE: Biphasic CT imaging of the abdomen and pelvis was performed with 100 ml non-ionic IV cont rast. All CT scans are performed using dose optimization technique as appropriate and may include automated exposure control or mA/KV adjustment according to patient size. FINDINGS: The lung bases are clear.Partially imaged bilateral breast prostheses. Partial gastrectomy. Liver is unremarkable. The spleen is unremarkable. Adrenal glands are unremarkab le. Pancreas is unremarkable. There is some indistinctness involving the right kidney with perinephri c stranding. Right-sided urothelial thickening is noted. Subcentimeter renal lesions which are too sm all to characterize but statistically benign. Bilateral nonobstructing renal calculi. Trace free flui d. Stranding within the anterior abdominal wall. This may be from a prior procedure. No bowel obstruction, free air, free fluid or abscess. The appendix is normal. No evidence of signi ficant lymphadenopathy. No suspicious bony findings. IMPRESSION: Mild right-sided perinephric and periureteric stranding with patchy ill-defined hypoenha ncement of the interpolar right kidney concerning for pyelonephritis but no abscess identified. No hy dronephrosis. Fat stranding in the anterior abdominal wall likely from recent surgical/ procedure yael nges.
--- NOTE | 2020-11-14 20:00 | ER ---
Nurse's Notes [facility] Name: Cecy Zhang Age: 30 yrs Sex: Female : 1990 Arrival Date: 11/14/2020 Time: 15:42 Bed DIS4 Private MD: Diagnosis: Tubulo-interstitial nephritis, not specified as acute or chronic;UTI/ Urinary tract infection, site not specified Presentation: 11/14 16:41 Chief complaint: Patient states: fever, flank pain for 1 week. Had burning with aa5 urination at the beginning that went away after 3 days of Cipro. Reports plastic surgery was done on October 15, 2020 with no complications. Coronavirus screen: Client denies travel out of the [place] in the last 14 days. Ebola Screen: Patient negative for fever greater than or equal to 101.5 degrees Fahrenheit, and additional compatible Ebola Virus Disease symptoms Patient denies exposure to infectious person. Patient denies travel to an Ebola-affected area in the 21 days before illness onset. No symptoms or risks identified at this time. Initial Sepsis Screen: Does the patient meet any 2 criteria? Temp <36.0*C (96.8*F)) or > 38.3*C (100.9*F). HR > 90 bpm. Does the patient have a suspected source of infection? Yes: Dysuria/Frequency/Urgency/UTI. Risk Assessment: Do you want to hurt yourself or someone else? Patient reports no desire to harm self or others. Onset of symptoms was November 07, 2020. 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 - Social history:: Smoking status: Patient/guardian denies using tobacco, Stopped _ months ago 8. Screenin:50 Abuse screen: Denies threats or abuse. Nutritional screening: No deficits noted. bb Tuberculosis screening: No symptoms or risk factors identified. Fall Risk None identified. Assessment: 19:50 General: Appears in no apparent distress. uncomfortable, Behavior is calm, cooperative. bb Pain: Complains of pain in back. Neuro: Level of Consciousness is awake, alert, obeys commands, Oriented to person, place, time, situation. Cardiovascular: Capillary refill < 3 seconds Patient's skin is warm and dry. Respiratory: Respiratory effort is even, unlabored. GI: No signs and/or symptoms were reported involving the gastrointestinal system. : Reports pain. Derm: Skin is pink, warm \T\ dry. Musculoskeletal: Circulation, motion, and sensation intact. 20:16 Reassessment: pt awaiting completion of IV fluids prior to discharge. bb 20:46 Reassessment: pt c/o pain notified Stephanie Hernandes CONCESSION MANAGER new orders received pt medicated bb see MAR. 21:07 Reassessment: Patient is alert, oriented x 3, equal unlabored respirations, skin bb warm/dry/pink. pt verbalized understanding of and agrees to plan of care discharge instructions given pt ambulated with steady gait to exit accompanied by family Patient states feeling better. Vital Signs: 16:39 BP 129 / 99; Pulse 134; Resp 20; Temp 101.7; Pulse Ox 98% ; Weight 70.31 kg; Height 5 aa5 ft. 7 in. (170.18 cm); Pain 10/10; 21:09 BP 132 / 92; Pulse 84; Resp 16; Temp 99(TE); Pulse Ox 100% on R/A; mh5 16:39 Body Mass Index 24.28 (70.31 kg, 170.18 cm) aa5 ED Course: 15:42 Patient arrived in ED. am2 16:45 Triage completed. aa5 16:50 Unique Hernandes F[facility]C [facility]. kb 16:50 Eber Walton MD is Attending Physician. kb 16:53 Initial lab(s) drawn, by me, sent to lab. Inserted saline lock: 20 gauge in left aa5 antecubital area, using aseptic technique. Blood collected. 18:21 CT Abd/Pelvis - IV Contrast Only In Process Unspecified. EDMS 19:50 IV is patent, is intact. bb 19:50 Patient has correct armband on for positive identification. Adult w/ patient. bb 20:00 Michelle Knutson, RN is Primary Nurse. bb 21:07 IV discontinued, intact, bleeding controlled, No redness/swelling at site. Pressure bb dressing applied. 21:07 No provider procedures requiring assistance completed. bb 21:08 Arm band placed on. bb Administered Medications: 16:53 Drug: Tylenol 1000 mg Route: PO; aa5 21:10 Follow up: Response: No adverse reaction bb 20:00 Drug: Rocephin (cefTRIAXone) 1 grams Route: IV; Rate: calculated rate; Site: left bb antecubital; 20:05 Follow up: IV Status: Completed infusion; IV Intake: 10ml bb 20:00 Drug: NS 0.9% 1000 ml Route: IV; Rate: 1000 ml; Site: left antecubital; bb 21:09 Follow up: IV Status: Completed infusion; IV Intake: 1000ml bb 20:47 Drug: Ketorolac 30 mg Route: IVP; Site: left antecubital; bb 21: Follow up: Response: No adverse reaction; Pain is decreased bb Intake: 20:05 IV: 10ml; Total: 10ml. bb 21:09 IV: 1000ml; Total: 1010ml. bb Outcome: 19:59 Discharge ordered by . kb 21:07 Discharged to home ambulatory. bb 21:07 Condition: stable 21:07 Discharge instructions given to patient, Instructed on discharge instructions, follow up and referral plans. medication usage, Demonstrated understanding of instructions, follow-up care, medications, Prescriptions given X 1. 21:13 Patient left the ED. bb Signatures: Dispatcher [employer] EDMS Unique Hernandes, ELECTRIC ARC WELDER-C ELECTRIC ARC WELDER-Michelle Garg, RN RN Deneen Ramos RN RN Rhiannon Hernandez [facility] Sofiya Malcolm
--- NOTE | 2020-11-14 20:00 | EDPHYS ---
Physician Documentation [facility] Name: Cecy Zhang Age: 30 yrs Sex: Female : 1990 Arrival Date: 11/14/2020 Time: 15:42 Bed DIS4 Private MD: ED Physician Eber Walton HPI: 11/14 19:57 This 30 yrs old Female presents to ER via Ambulatory with complaints of kb Fever, Flank Pain - right. 19:57 The patient reports fever, that was measured at 102 degrees Fahrenheit, with an kb emergency department temperature of 101.7 degrees Fahrenheit. Onset: The symptoms/episode began/occurred 1 week(s) ago. Modifying factors: there are no obvious modifying factors. Associated signs and symptoms: Pertinent positives: chills, flank pain. Severity of symptoms: At their worst the symptoms were moderate in the emergency department the symptoms are unchanged. The patient has not experienced similar symptoms in the past. The patient has been recently seen by a physician:. Patient reports fever, chills, flank pain for 1 week. States she had burning with urination at the beginning of symptom onset that went away after 3 days of Cipro. Patient had plastic surgery on October 15 so she is concerned that the fever is due to a surgical infection. 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 - Social history:: Smoking status: Patient/guardian denies using tobacco, Stopped _ months ago 8. ROS: 19:55 Respiratory: Negative for shortness of breath, cough, wheezing, and pleuritic chest kb pain. 19:55 Constitutional: Positive for chills, fever, Negative for body aches, fatigue, malaise, poor PO intake, weight loss. 19:55 Back: Positive for flank pain, on the right. 19:55 All other systems are negative. Exam: 19:55 Constitutional: This is a well developed, well nourished patient who is awake, alert, kb and in no acute distress. Head/Face: Normocephalic, atraumatic. ENT: Moist Mucous membranes Cardiovascular: Regular rate and rhythm with a normal S1 and S2. No gallops, murmurs, or rubs. No pulse deficits. Respiratory: Respirations even and unlabored. No increased work of breathing, no retractions or nasal flaring. Abdomen/GI: Soft, non-tender. No distention Skin: Warm, dry with normal turgor. Normal color. MS/ Extremity: Pulses equal, no cyanosis. Neurovascular intact. Full, normal range of motion. Neuro: Awake and alert, GCS 15, oriented to person, place, time, and situation. Moves all extremities. Normal gait. Psych: Awake, alert, with orientation to person, place and time. Behavior, mood, and affect are within normal limits. 19:55 Back: CVA tenderness, that is moderate, is noted on the right. Vital Signs: 16:39 BP 129 / 99; Pulse 134; Resp 20; Temp 101.7; Pulse Ox 98% ; Weight 70.31 kg; Height 5 aa5 ft. 7 in. (170.18 cm); Pain 10/10; 21:09 BP 132 / 92; Pulse 84; Resp 16; Temp 99(TE); Pulse Ox 100% on R/A; mh5 16:39 Body Mass Index 24.28 (70.31 kg, 170.18 cm) aa5 MDM: 16:50 Patient medically screened. kb 19:55 Data reviewed: vital signs, nurses notes. Data interpreted: Pulse oximetry: on room air kb is 98 %. Interpretation: normal. Counseling: I had a detailed discussion with the patient and/or guardian regarding: the historical points, exam findings, and any diagnostic results supporting the discharge/admit diagnosis, lab results, radiology results, the need for outpatient follow up, a family practitioner, to return to the emergency department if symptoms worsen or persist or if there are any questions or concerns that arise at home. 11/14 15:48 Order name: Urine Microscopic Only; Complete Time: 17:58 kb 11/14 16:47 Order name: CBC with Diff; Complete Time: 17:58 aa5 11/14 16:47 Order name: Basic Metabolic Panel; Complete Time: 17:33 aa5 11/14 17:00 Order name: Urine Dipstick-Ancillary; Complete Time: 17:05 EDMS 11/14 17:05 Order name: Urine --Ancillary (enter results); Complete Time: 18:06 em1 11/14 17:48 Order name: Urine Culture EDMS 11/14 15:48 Order name: Urine Dipstick-Ancillary (obtain specimen); Complete Time: 16:56 kb 11/14 15:48 Order name: Urine Test (obtain specimen); Complete Time: 16:56 kb 11/14 16:47 Order name: IV Start; Complete Time: 16:53 aa5 11/14 16:47 Order name: CT Abd/Pelvis - IV Contrast Only; Complete Time: 18:34 aa5 Administered Medications: 16:53 Drug: Tylenol 1000 mg Route: PO; aa5 21:10 Follow up: Response: No adverse reaction bb 20:00 Drug: Rocephin (cefTRIAXone) 1 grams Route: IV; Rate: calculated rate; Site: left antecubital; 20:05 Follow up: IV Status: Completed infusion; IV Intake: 10ml bb 20:00 Drug: NS 0.9% 1000 ml Route: IV; Rate: 1000 ml; Site: left antecubital; bb 21:09 Follow up: IV Status: Completed infusion; IV Intake: 1000ml bb 20:47 Drug: Ketorolac 30 mg Route: IVP; Site: left antecubital; bb 21:09 Follow up: Response: No adverse reaction; Pain is decreased bb Disposition: 11/15 06:28 Co-signature as Attending Physician, Eber Walton MD I agree with the assessment and yael plan of care. Disposition Summary: 11/14/20 19:59 Discharge Ordered Location: Home kb Condition: Stable kb Diagnosis - Tubulo-interstitial nephritis, not specified as acute or chronic kb - UTI/ Urinary tract infection, site not specified kb Followup: kb - With: Emergency Department - When: As needed - Reason: Worsening of condition Followup: kb - With: Private Physician - When: 2 - 3 days - Reason: Recheck today's complaints, Continuance of care, Re-evaluation by your physician Discharge Instructions: - Discharge Summary Sheet kb - Pyelonephritis, Adult, [id number] kb - Urinary Tract Infection, Adult, [id number] kb Forms: - Medication Reconciliation Form kb - Thank You Letter kb - Antibiotic Education kb - Prescription Opioid Use kb Prescriptions: - cefpodoxime 100 mg Oral Tablet - take 1 tablet by ORAL route every 12 hours for 10 days take with food; 20 kb tablet; Refills: 0, Product Selection Permitted Signatures: Dispatcher [employer] Unique Olson, NARAYANC ANGELINA-Eber Simon MD MD cha Ballard, Brenda, RN RN bb Deneen Iglesias RN RN aa5
[2020-11-14] MEDS ORDERED: NA CHLORIDE 0.9% 1,000 ML ONE (20:16)
[2020-11-14] MEDS ORDERED: CEFTRIAXONE/SWI 1gm 1 GM/10 ML SYR ONE (20:17)
[2020-11-14] MEDS ORDERED: KETOROLAC 30 MG/ML INJ ONE (21:00)
[2020-11-15 01:55] VITALS: BP 132/92; TEMP 99; O2SAT 100
== END 2020-11-14 21:13 | disposition home or self-care (01) ==
LOC: ER 15:24
DX: N12 Tubulo-interstitial nephritis, not specified as acute or chronic (principal); N39.0 Urinary tract infection, site not specified; Z98.84 Bariatric surgery status; Z88.1 Allergy status to other antibiotic agents
CPT/HCPCS: 96361; 87088; 85025; 87086; 80048; 36415; 81025; 87077; 87186; 74177; 96375; 96374; 99284; Q9967; J0696; J7030; 81003; 81015

== ENCOUNTER 2020-11-21 04:34 | Emergency (ER) | payer BC ==
--- OUTSIDE RECORDS SUMMARY | 2020-11-21 04:39 | XMS REPORT | Continuity of Care Document ---
:1990 Author Organization [facility] t Address [address] [place] [address] Care Team Providers Name Role Phone Pocammie, Denny Main Attending Clinician Unavailable Femi LAZO Attending [...] Date Clinician No Known DA Active U [facility]ie 11-12 [facility] 00:00: e 00 [facility] Medications This patient has no known medications. Procedures This patient has no known procedures. Encounters Start End Encounter Admission Attending Care Care Encounter Source Date/Time Date/Time Type Type Clinicians Facility Department ID 2020-07-04 2020-07-04 Auto Tester Randall Martinez WYBRENDA [id number] 14:03:01 14:18:01 Visit Lab Main [place] [id number] [place] 4.2.7.2.686 [place] [id number] [address] 2020-06-19 2020-06-19 [facility] Miya Kahn [facility] [id number] 13:11:58 23:59:00 Encounter [place] 350.1.13.10 [place] 4.2.7.2.686 [place] [id number] 2020-04-13 2020-04-13 Emergency James, [facility] [id number] 17:11:00 21:01:00 Miya Bullock 350.1.13.10 [place] 4.2.7.2.686 [place] [id number] 2020-03-23 2020-03-23 Laboratory Lab, [facility] [id number] 10:01:52 10:21:52 Only Fam Pob I [facility] 350.1.13.10 [place] 4.2.7.2.686 [place] [id number] nal 044 Office Building One Results Test Description Test Time Test Comments Results Result Comments Source COVID 19 Asymptomatic IH AG 2019-11-29 13:40:00 Test Item Value Reference Range Interpretation Comme nts COVID 19 Asymptomatic IH AG (test code = COVNONPUIAG) NEGATIVE [id number] 13:21:00 RUN DATE: 11/28/19 [facility] 1 RUN TIME: 1321 Specimen Inquiry RUN USER: INTERFACE PATIENT: EMERALD OBANDO LOC: [place] U #: [id number] AGE/SX: 29/F [facility] DR: Anastacio Abarca MD : 89 BED: A DIS: STATUS: ADM IN TLOC: SPEC #: [id number] RECD: 11/27/19 STATUS: ESTHELA RE #: [id number] SCARLET: 11/27/19- SUBM DR: Anastacio Abarca MD ENTERED: 11/27/19 SP TYPE: STOMACH OTHR DR: No Primary or Family Physician Uday Ferraro MDORDERED: GROSS COPIES TO: No Primary or Family Physician Anastacio Abarca MD [address] [place] [address] Uday Ferraro MD [id number] [place] [address] PROCEDURES: GROSS (11/28/19-112) TISSUES: STOMACH, NOS - PORTION OF STOMACH CLINICAL HISTORY COLLECTION DATE: 11/27/19 [facility] FINAL DIAGNOSIS Portion of stomach, laparoscopic sleeve gastrectomy: PORTION OF STOMACH, NO PATHOLOGIC ALTERATION DMW/sm D [id number] MACROSCOPIC The specimen is received in formalin, labeled with the patient's name, and identified as "portion of stomach". It consists of sleeve gastrectomy specimen measuring 17.0 x 4.0 cm with a wall thickness of up to 0.6 cm. The serosal surface is pink with congested vessels. The mucosal edge is stapled closed. A CONTINUED ON NEXT PAGE RUN DATE: 11/28/19 [facility] PAGE 2 RUN TIME: 1321 Specimen Inquiry RUN USER: INTERFACE SPEC #: [id number] PATIENT: EMERALD OBANDO #[id number] (Continued) MACROSCOPIC (Continued) small amount of unremarkable fatty tissue is attached to the opposite surface. The mucosal surface is dark pink withunremarkable folds. No areas of ulceration, nodules or polyps are identified. Facility Administrator tissue is submitted in a single cassette. GROSS PERFORMED AT [facility] [address] [place] [address] (p)[phone] MICROSCOPIC All of the stains, including any controls performed, stain appropriately. MICROSCOPIC PERFORMED AT [facility] [address] [place] [address] [phone])[phone] PERFORMING SITE Diagnosis performed at: [facility], [place] [address] [place] [address] Signed SIGNATURE ON FILE Angela [place] MD 11/28/19 1321 END OF REPORT TSH REFLEX TO [id number] 07:36:00 Test Item Value Reference Range Interpretation Comments TSH REFLEX TO FT4 (test code = 1.0 0.4-5.5 N TSHREFLEX) BASIC METABOLIC [id number] 07:33:00 Test Item Value Reference Range Interpretation [...] GFR) formula.Chronic kidney disease is defined as [facility] kidney damageor GFR <60 mL/min/1.73 m2 for >3 months. CREATININE (test code 0.70 mg/dL 0.55-1.02 N Note change in = CREAT) reference range due to change in reagent. BUN/CREATININE RATIO 11.3 10-20 N (test code = BUN/CREA) CALCIUM (test code = 9.0 mg/dL 8.5-10.1 N CA) BASIC METABOLIC [id number] 07:15:00 Test Item Value Reference Range Interpretation [...] code = CA) mg/dL 8.5-10.1 CBC W/AUTO [id number] 06:54:00 Test Item Value Reference Range Interpretation [...] code = 0.00 K/mm3 0.0-0.1 N NRBC#) [id number] 07:53:00 Test Item Value Reference Range Interpretation Comments GLUBED (test code = 68 mg/dL 74-106 L Performe d by certified GLUBED) transmission operator at [facility] COMPREHENSIVE METABOLIC [id number] 14:08:00 Test Item Value Reference Range Interpretation [...] due ALKP) to change in reagent. PROTHROMBIN [id number] 14:05:00 Test Item Value Reference Range Interpretation [...] (2.5-3.5) IS PATIENT ON ANTICOAGULANTS? NTHROMBOPLASTIN TIME [id number] 14:05:00 Test Item Value Reference Range Interpretation Comments THROMBOPLASTIN TIME PARTIAL 30.3 seconds 23.0-37.0 N (test code = PTT) IS PATIENT ON ANTICOAGULANTS? NCOMPREHENSIVE METABOLIC [id number] 14:01:00 Test Item Value Reference Range Interpretation [...] IUnit/L 45-117 code = ALKP) HCG SERUM [id number] 13:59:00 Test Item Value Reference Range Interpretation Comments HCG SERUM QUAL (test NEGATIVE NEGATIVE This HC GQL test is NOT code = HCGQL) applicable for MALE patients.Check with nurse about probable order error.If Tumor Marker Test needed, nu rse should order test "HCG TU"(Test #550.27037)---- - CBC W/AUTO [id number] 13:57:00 Test Item Value Reference Range Interpretation [...] code = BA#) K/mm3 0.0-0.2 CBC W/AUTO [id number] 13:57:00 Test Item Value Reference Range Interpretation [...] = 0.00 K/mm3 0.0-0.1 N NRBC#) URINALYSIS [id number] 13:54:00 Test Item Value Reference Range Interpretation [...] FEW #/LPF FEW Urine Source? Clean CatchURINALYSIS [id number] 13:53:00 Test Item Value Reference Range Interpretation [...] is a direct measurement.=== ====== HEPATIC FUNCTION [id number] 07:15:00 Test Item Value Reference Range Interpretation [...] ALKP) to change in reagent. HCG SERUM [id number] 07:15:00 Test Item Value Reference Range Interpretation Comments HCG SERUM QUAL (test NEGATIVE NEGATIVE This HC GQL test is NOT code = HCGQL) applicable for MALE patients.Check with nurse about probable order error.If Tumor Marker Test needed, nu rse should order test "HCG TU"(Test #550.51424)---- - VITAMIN [id number] 07:15:00 Test Item Value Reference Range Interpretation Comments VITAMIN B12 (test code = VITB12) 690 pg/mL 193-986 N FOLIC [id number] 07:15:00 Test Item Value Reference Range Interpretation Comments FOLIC ACID (test code = FOL) 6.8 ng/mL 3.10-17.50 N THYROID PROFILE [id number] 07:15:00 Test Item Value Reference Range Interpretation [...] : < 0.35 mIU/mL VIT B1 WHOLE [id number] 07:15:00 Test Item Value Reference Range Interpretation Comments VIT B1 WHOLE BLOOD 146.9 nmol/L 66.5-200.0 Performed At: (test code = [facility] [id number]) [place], [place] [id number] aide Pastrana MD Ph:[phone] AB HIV 1 14:26:00 Test Item Value Reference Range Interpretation Comments AB HIV 1 2 Nonreactive NonReactive It is recognize d that (test code = currently avail able [id number]) assays for thed etection of antibodies t [...] LDL (test 117 mg/dL 100-129 N RN LIZETTE OVIEDO, CONTACT code = LDL) PHYSICIAN IMMED IATELY [...] is a direct measurement.=== ====== HEPATIC FUNCTION [id number] 13:04:00 Test Item Value Reference Range Interpretation [...] ALKP) to change in reagent. HCG SERUM [id number] 13:04:00 Test Item Value Reference Range Interpretation Comments HCG SERUM QUAL (test NEGATIVE NEGATIVE This HC GQL test is NOT code = HCGQL) applicable for MALE patients.Check with nurse about probable order error.If Tumor Marker Test needed, nu rse should order test "HCG TU"(Test #550.22762)---- - VITAMIN [id number] 13:04:00 Test Item Value Reference Range Interpretation Comments VITAMIN B12 (test code = VITB12) 690 pg/mL 193-986 N FOLIC [id number] 13:04:00 Test Item Value Reference Range Interpretation Comments FOLIC ACID (test code = FOL) 6.8 ng/mL 3.10-17.50 N THYROID PROFILE [id number] 13:04:00 Test Item Value Reference Range Interpretation [...] : < 0.35 mIU/mL VIT B1 WHOLE [id number] 13:04:00 Test Item Value Reference Range Interpretation Comments VIT B1 WHOLE BLOOD (test code = nmol/L 87-280 BGSF9AF) URINALYSIS [id number] 12:59:00 Test Item Value Reference Range Interpretation [...] is a direct measurement.=== ====== HEPATIC FUNCTION [id number] 12:55:00 Test Item Value Reference Range Interpretation [...] ALKP) to change in reagent. HCG SERUM [id number] 12:55:00 Test Item Value Reference Range Interpretation Comments HCG SERUM QUAL (test code = HCGQL) NEGATIVE VITAMIN [id number] 12:55:00 Test Item Value Reference Range Interpretation Comments VITAMIN B12 (test code = VITB12) 690 pg/mL 193-986 N FOLIC [id number] 12:55:00 Test Item Value Reference Range Interpretation Comments FOLIC ACID (test code = FOL) 6.8 ng/mL 3.10-17.50 N THYROID PROFILE [id number] 12:55:00 Test Item Value Reference Range Interpretation [...] : < 0.35 mIU/mL VIT B1 WHOLE [id number] 12:55:00 Test Item Value Reference Range Interpretation Comments VIT B1 WHOLE BLOOD (test code = nmol/L 87-280 VKLU0HQ) URINALYSIS [id number] 12:53:00 Test Item Value Reference Range Interpretation [...] NONE BACU) Urine Source? Clean CatchCOMPREHENSIVE METABOLIC [id number] 12:29:00 Test Item Value Reference Range Interpretation [...] MDRD formula.Chronic kidney disease is defined as [facility] kidney damageor GFR <60 mL/min/1.73 m2 [...] ALKP) to change in reagent. COMPREHENSIVE METABOLIC [id number] 12:23:00 Test Item Value Reference Range Interpretation [...] TOTAL (test IUnit/L 45-117 code = ALKP) [id number] 12:10:00 Test Item Value Reference Range Interpretation Comments GLYCOSYLATED HEMOGLOBIN 5.2 % HbA1 SUGG ESTED DIAGNOSIS: (HA1C) (test code = HbA1C GLYHGB) (%) ----- ----- Diab etic >6.4Prediabetes 5.7 - 6.4Normal <5.7 ESTIMATED AVERAGE 103 MG/DL GLUCOSE (test code = EAG) PROTHROMBIN [id number] 12:09:00 Test Item Value Reference Range Interpretation [...] (2.5-3.5) IS PATIENT ON ANTICOAGULANTS? NTHROMBOPLASTIN TIME [id number] 12:09:00 Test Item Value Reference Range Interpretation Comments THROMBOPLASTIN TIME PARTIAL 31.1 seconds 23.0-37.0 N (test code = PTT) IS PATIENT ON ANTICOAGULANTS? NAB HELICOBACTER [id number] 11:59:00 Test Item Value Reference Range Interpretation Comments AB HELICOBACTER IGG (test code = NEGATIVE NEGATIVE HELIGAB) COVID 19 Asymptomatic IH [id number] 11:57:00 Test Item Value Reference Range Interpretation Comments COVID 19 Asymptomatic IH AG (test NEGATIVE code = COVNONPUIAG) CBC W/AUTO [id number] 11:57:00 Test Item Value Reference Range Interpretation [...] MANUAL DIFF REQUIRED (test code NO = MDIFF) - XR CHEST 2 [id number] 11:13:00 FAX: Anastacio Malloy MD [phone] [place]: O St: PRE Name: EMERALD OBANDO [facility] : 1990 Age/S: 29/F [address] [facility] Unit#: [id number] Loc: [place] [address] Phys: Anastacio Abarca MD Acct: [id number] Dis Date: Status: PRE SDC PHONE #: [phone] Exam Date: 11/13/2019 1055 FAX #: [phone] Reason: PRE OP EXAMS: CPT CODE: [id number] XR CHEST 2 V 18569 REASON FOR EXAM: PRE OP Exam Order Date:11/13/2019 10:47 AM Ordering M.D.: Anastacio Abarca MD PROCEDURE: - XR CH [...] No acute cardiopulmonary process. Location: [facility] at 1113 Reported and signed by: James Rincon MD CC: Anastacio Abarca MD Technologist: Miya Blanton RT(R) Trnscrd Date/Time/By: 11/13/2019 (1113) : By: [email or web address] Orig Print D/T:S: 11/13/2019 (8756) PAGE 1 Signed Report
[2020-11-21 07:56] LABS: Specific Gravity > 1.030 (1.005-1.030)
[2020-11-21 07:59] LABS: Urine Bacteria >50 /HPF (<20); Urine RBC NONE SEEN /HPF (NONE SEEN)
[2020-11-21 08:00] LABS: Calcium Oxalate Crystals- Ur PRESENT (NONE SEEN); Urine Mucus HEAVY /HPF (NONE SEEN)
[2020-11-21] MEDS ORDERED: NA CHLORIDE 0.9% 1,000 ML ONE (08:05)
[2020-11-21 08:36] LABS: ALT/SGPT 57 U/L (12-78); AST/SGOT 19 U/L (15-37); Albumin 4.1 g/dL (3.4-5.0); Alkaline Phosphatase 92 U/L (45-117); BUN Blood Urea Nitrogen 12 mg/dL (7-18); Bicarbonate 27 mmol/L (21-32); Bilirubin Direct 0.1 mg/dL (0-0.2); Bilirubin Total 0.3 mg/dL (0.2-1.0); Glucose Level 82 mg/dL (74-106); Lipase 95 U/L (73-393); Potassium 3.6 mmol/L (3.5-5.1); Sodium Level 137 mmol/L (136-145)
[2020-11-21] MEDS ORDERED: CEFTRIAXONE/SWI 1gm 1 GM/10 ML SYR ONE (08:38)
[2020-11-21 08:51] LABS: Absolute Lymphocytes (CBC) 1.9 K/uL (0.7-4.9); Hematocrit 32.7 % (36.0-45.0); MPV 7.8 fL (7.6-11.3)
--- NOTE | 2020-11-21 09:23 | ER ---
Nurse's Notes [facility] [place], [place] Name: Cecy Zhang Age: 30 yrs Sex: Female : 1990 Arrival Date: 11/21/2020 Time: 04:38 Bed 10 Private MD: Diagnosis: Tubulo-interstitial nephritis, not specified as acute or chronic Presentation: 11/21 05:05 Chief complaint: Patient states: she recently had plastic surgery a month ago and she bb has been being treated for a UTI x 1 week and is still running fever. Coronavirus screen: At this time, the client does not indicate any symptoms associated with coronavirus-19. Ebola Screen: No symptoms or risks identified at this time. Initial Sepsis Screen: Does the patient meet any 2 criteria? No. Patient's initial sepsis screen is negative. Does the patient have a suspected source of infection? Yes: Dysuria/Frequency/Urgency/UTI. Risk Assessment: Do you want to hurt yourself or someone else? Patient reports no desire to harm self or others. Onset of symptoms was November 15, 2020. 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 - Social history:: Smoking status: Patient denies any tobacco usage or history of. Screenin:00 Abuse screen: Denies threats or abuse. Nutritional screening: No deficits noted. jb4 Tuberculosis screening: No symptoms or risk factors identified. Fall Risk None identified. Assessment: 05:00 General: Appears in no apparent distress. comfortable, Behavior is calm, cooperative, jb4 appropriate for age. Pain: Complains of pain in back and abdomen Pain does not radiate. Pain currently is 4 out of 10 on a pain scale. Neuro: Level of Consciousness is awake, alert, obeys commands, Oriented to person, place, time, situation. Cardiovascular: Patient's skin is warm and dry. Respiratory: Airway is patent Respiratory effort is even, unlabored, Respiratory pattern is regular, symmetrical. GI: No signs and/or symptoms were reported involving the gastrointestinal system. : No signs and/or symptoms were reported regarding the genitourinary system. EENT: No signs and/or symptoms were reported regarding the EENT system. Derm: Skin is intact, Skin is pink, warm \T\ dry. Musculoskeletal: Circulation, motion, and sensation intact. Range of motion: intact in all extremities. 06:00 Reassessment: Patient appears in no apparent distress at this time. Patient and/or jb4 family updated on plan of care and expected duration. Pain level reassessed. Patient is alert, oriented x 3, equal unlabored respirations, skin warm/dry/pink. 09:59 Reassessment: Patient appears in no apparent distress at this time. Patient and/or ss family updated on plan of care and expected duration. Pain level reassessed. Patient is alert, oriented x 3, equal unlabored respirations, skin warm/dry/pink. Pt verbalizes understanding dc instructions. Awaiting for IV fluids to finish infusing prior to dc home. 10:22 Reassessment: Patient appears in no apparent distress at this time. Patient and/or ss family updated on plan of care and expected duration. Pain level reassessed. Vital Signs: 05:05 BP 127 / 99; Pulse 96; Resp 16 S; Temp 98.3(O); Pulse Ox 100% on R/A; Weight 70.31 kg bb (R); Height 5 ft. 7 in. (170.18 cm) (R); Pain 4/10; 10:01 BP 131 / 95; Pulse 73; Resp 16; Pulse Ox 100% on R/A; ss 05:05 Body Mass Index 24.28 (70.31 kg, 170.18 cm) bb ED Course: 04:38 Patient arrived in ED. wm 05:00 Patient has correct armband on for positive identification. Bed in low position. Call jb4 light in reach. Side rails up X 1. Pulse ox on. NIBP on. 05:07 Triage completed. bb 05:07 Arm band placed on Patient placed in an exam room, on a stretcher. bb 06:04 Arya Dowling, LUKASZ is Primary Nurse. jb4 06:09 Audie Hill PA is PHCP. jr8 06:09 Jonah Ann MD is Attending Physician. jr8 07:55 Inserted saline lock: 20 gauge in left antecubital area, using aseptic technique. Blood kj1 collected. 07:55 Initial lab(s) drawn, by me, sent to lab. First set of blood cultures drawn by me. kj1 09:22 Eddi Hernandez MD is Referral Physician. jr8 09:22 Daniel Branham DO is Referral Physician. jr8 09:59 No provider procedures requiring assistance completed. ss 10:22 IV discontinued, intact, bleeding controlled, No redness/swelling at site. Pressure ss dressing applied. Administered Medications: 08:00 Drug: NS 0.9% 1000 ml Route: IV; Rate: 1000 ml; Site: left antecubital; ss 10:23 Follow up: IV Status: Completed infusion; IV Intake: 1000ml ss 08:20 Drug: Rocephin (cefTRIAXone) 1 grams Route: IV; Rate: calculated rate; Site: left jb4 antecubital; Intake: 10:23 IV: 1000ml; Total: 1000ml. ss Outcome: 09:22 Discharge ordered by . jr8 10:22 Discharged to home ambulatory. ss 10:22 Condition: good 10:22 Discharge instructions given to patient, family, Instructed on discharge instructions, follow up and referral plans. medication usage, Demonstrated understanding of instructions, follow-up care, medications, Prescriptions given X 1. 10:23 Patient left the ED. ss Signatures: Michelle Kntuson RN RN bb Dolores Lieberman RN RN Audie Hill PA PA jr8 Arya Dowling RN RN jb Chiara Hernandes kj1 Marysol Borges Corrections: (The following items were deleted from the chart) 06:33 05:05 Acuity: CHET 4 bb bb 08:02 07:55 Initial lab(s) drawn, by me, sent to lab. First set of blood cultures drawn by kj1 , kj1
--- NOTE | 2020-11-21 09:23 | EDPHYS ---
Physician Documentation [facility] Name: Cecy Zhang Age: 30 yrs Sex: Female : 1990 Arrival Date: 11/21/2020 Time: 04:38 Bed 10 Private MD: ED Physician Jonah Ann HPI: 11/21 08:02 This 30 yrs old Female presents to ER via Ambulatory with complaints of jr8 Fever, UTI. 08:02 This is a patient was seen approximately 1 week ago and diagnosed with acute jr8 tubulointerstitial nephritis and cystitis. Was placed on Cefpodoxime. Had seen her PCP prior to this and had a trial of Cipro as well. Patient said that she is continue to have on-and-off fevers and this morning started to have urinary complaints again.. 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 - Social history:: Smoking status: Patient denies any tobacco usage or history of. ROS: 08:02 Eyes: Negative for injury, pain, redness, and discharge, ENT: Negative for injury, jr8 pain, and discharge, Neck: Negative for injury, pain, and swelling, Cardiovascular: Negative for chest pain, palpitations, and edema, Respiratory: Negative for shortness of breath, cough, wheezing, and pleuritic chest pain, Abdomen/GI: Negative for abdominal pain, nausea, vomiting, diarrhea, and constipation, Back: Negative for injury and pain, MS/Extremity: Negative for injury and deformity, Skin: Negative for injury, rash, and discoloration, Neuro: Negative for headache, weakness, numbness, tingling, and seizure. 08:02 Constitutional: Positive for fever. 08:02 : Positive for urinary symptoms. Exam: 08:02 Constitutional: This is a well developed, well nourished patient who is awake, alert, jr8 and in no acute distress. Eyes: Pupils equal round and reactive to light, extra-ocular motions intact. Lids and lashes normal. Conjunctiva and sclera are non-icteric and not injected. Cornea within normal limits. Periorbital areas with no swelling, redness, or edema. ENT: Nares patent. No nasal discharge, no septal abnormalities noted. Tympanic membranes are normal and external auditory canals are clear. Oropharynx with no redness, swelling, or masses, exudates, or evidence of obstruction, uvula midline. Mucous membranes moist. Neck: Trachea midline, no thyromegaly or masses palpated, and no cervical lymphadenopathy. Supple, full range of motion without nuchal rigidity, or vertebral point tenderness. No Meningismus. Chest/axilla: Normal chest wall appearance and motion. Nontender with no deformity. No lesions are appreciated. Cardiovascular: Regular rate and rhythm with a normal S1 and S2. No gallops, murmurs, or rubs. Normal PMI, no JVD. No pulse deficits. Respiratory: Lungs have equal breath sounds bilaterally, clear to auscultation and percussion. No rales, rhonchi or wheezes noted. No increased work of breathing, no retractions or nasal flaring. Abdomen/GI: Soft, non-tender, with normal bowel sounds. No distension or tympany. No guarding or rebound. No evidence of tenderness throughout. Back: No spinal tenderness. No costovertebral tenderness. Full range of motion. Skin: Warm, dry with normal turgor. Normal color with no rashes, no lesions, and no evidence of cellulitis. Post surgical scars noted to belt line and below each breast and umbilicus. All well healed, without dehiscense, and without cellulitic findings MS/ Extremity: Pulses equal, no cyanosis. Neurovascular intact. Full, normal range of motion. Neuro: Awake and alert, GCS 15, oriented to person, place, time, and situation. Motor strength 5/5 in all extremities. Sensory grossly intact. Vital Signs: 05:05 BP 127 / 99; Pulse 96; Resp 16 S; Temp 98.3(O); Pulse Ox 100% on R/A; Weight 70.31 kg bb (R); Height 5 ft. 7 in. (170.18 cm) (R); Pain 4/10; 10:01 BP 131 / 95; Pulse 73; Resp 16; Pulse Ox 100% on R/A; ss 05:05 Body Mass Index 24.28 (70.31 kg, 170.18 cm) bb MDM: 06:09 Patient medically screened. jr8 09:13 Data reviewed: vital signs, nurses notes, old medical records, lab test result(s). Data jr8 interpreted: Pulse oximetry: on room air is 100 %. Interpretation: normal. Counseling: I had a detailed discussion with the patient and/or guardian regarding: the historical points, exam findings, and any diagnostic results supporting the discharge/admit diagnosis, lab results, the need for outpatient follow up, a urologist, to return to the emergency department if symptoms worsen or persist or if there are any questions or concerns that arise at home. ED course: Reviewed patient's old medical records and compared today. Patient did have pyelonephritis on the right side about a week ago. Patient was on intermediate sensitivity antibiotics. We will switch patient to susceptible antibiotics and have resulted her urine pending results for that. Patient is to start new antibiotics and follow-up with urology. If she were to get worse at any point time to come back for further evaluation.. 11/21 06:29 Order name: Basic Metabolic Panel; Complete Time: 08:50 jr11/21 06:29 Order name: CBC with Diff; Complete Time: 09:08 jr8 11/21 06:29 Order name: Hepatic Function; Complete Time: 08:50 jr11/21 06:29 Order name: Lipase; Complete Time: 08:50 jr11/21 06:29 Order name: Blood Culture Adult (2) 11/21 06:29 Order name: Urine Microscopic Only; Complete Time: 08:02 jr8 11/21 06:29 Order name: IV Saline Lock; Complete Time: 08:07 jr8 11/21 06:29 Order name: Labs collected and sent; Complete Time: 08:07 jr8 11/21 06:29 Order name: Urine Test (obtain specimen); Complete Time: 08:07 jr8 11/21 07:48 Order name: Test, Urine; Complete Time: 08:02 EDMS 11/21 09:39 Order name: Urine Culture jr8 11/21 06:29 Order name: Urine Dipstick-Ancillary (obtain specimen); Complete Time: 08:07 jr8 Administered Medications: 08:00 Drug: NS 0.9% 1000 ml Route: IV; Rate: 1000 ml; Site: left antecubital; ss 10:23 Follow up: IV Status: Completed infusion; IV Intake: 1000ml 08:20 Drug: Rocephin (cefTRIAXone) 1 grams Route: IV; Rate: calculated rate; Site: left jb4 antecubital; Disposition Summary: 11/21/20 09:22 Discharge Ordered Location: Home jr8 Problem: new jr8 Symptoms: have improved jr8 Condition: Stable jr8 Diagnosis - Tubulo-interstitial nephritis, not specified as acute or chronic jr8 Followup: jr8 - With: Eddi Hernandez MD - When: 1 week - Reason: If symptoms return, Recheck today's complaints, Continuance of care, Re-evaluation by your physician Followup: jr8 - With: Daniel Branham DO - When: 5 - 6 days - Reason: Recheck today's complaints, Re-evaluation by your physician Discharge Instructions: - Discharge Summary Sheet jr8 - Pyelonephritis, Adult jr8 Forms: - Medication Reconciliation Form jr8 - Thank You Letter jr8 - Antibiotic Education jr8 - Prescription Opioid Use jr8 Prescriptions: - Augmentin 875-125 mg Oral Tablet - take 1 tablet by ORAL route every 12 hours for 10 days; 20 tablet; Refills: 0, jr8 Product Selection Permitted Addendum: 11/22/2020 19:05 Co-signature as Attending Physician, Jonah galan Signatures: Dispatcher [employer] Jonah Crane MD MD pkl Ballard, Brenda RN RN Dolores Jeffries RN RN ss Roszak, Josh, PA PA jr8 Arya Dowling, RN RN jb4
[2020-11-21 10:31] VITALS: TEMP 98.3; O2SAT 100
[2020-11-21 10:33] VITALS: BP 131/95
== END 2020-11-21 10:23 | disposition home or self-care (01) ==
LOC: ER 04:34
DX: N12 Tubulo-interstitial nephritis, not specified as acute or chronic (principal); Z88.1 Allergy status to other antibiotic agents
CPT/HCPCS: 96361; 87040 ×2; 87088; 85025; 87086; 80048; 36415; 81025; 80076; 81015; 83690; 96374; 99284; J0696; J7030

== ENCOUNTER 2022-08-11 07:46 | Emergency (ER) | payer BC ==
--- OUTSIDE RECORDS SUMMARY | 2022-08-11 07:54 | XMS REPORT | Continuity of Care Document ---
:1990 Author Organization [facility] t Address [address] [facility] [address] [place] [address] Care Team Providers Name Role Phone Imtiaz Antony MD Primary Care Physician Anastacio Abarca Attending Clinician Unavailable Doctor Unassigned, [place] Attending Clinician Unavailable DAMARIS JACOBO Attending Clinician Unavailable DAMARIS JACOBO Attending Clinician Unavailable Daniel Hernandes MD Attending Clinician Lab, Ang - Db Attending Clinician Unavailable DANIEL HERNANDES Attending Clinician Unavailable Cici LAL, Kiki Attending Clinician Unavailable Nurse, [facility] Attending Clinician Unavailable Tyron OLMEDO, Annie Attending Clinician ANNIE CHEUNG Attending Clinician Unavailable Imtiaz Antony MD Attending Clinician IMTIAZ ANTONY Attending Clinician Unavailable Sofiya Wallis MD Attending Clinician SOFIYA WALLIS Attending Clinician Unavailable Ebcarmina SALESFORCE SPECIALIST, Keli Attending Clinician Bayron LAL, Julianna Attending Clinician Unavailable MERCEDES SAUCEDO Attending Clinician Unavailable Only, Ang Db Test Attending Clinician Unavailable Edith SALESFORCE SPECIALIST, Mercedes Attending Clinician Lucille LAL, Lucero Attending Clinician Unavailable JOHNMICK Attending Clinician Unavailable John LAZO, Mick Attending Clinician Only, Adc Test Attending Clinician Unavailable Sandor Senior MD Attending Clinician SANDOR SENIOR Attending Clinician Unavailable KELI RODRIGUEZ Attending Clinician Unavailable Altagracia Kahn MD Attending Clinician JEFFREY SCOTT Attending Clinician Unavailable Jeffrey Scott MD Attending Clinician Cornelius Dao PA-C Attending Clinician CORNELIUS DAO Attending Clinician Unavailable ALTAGRACIA KAHN Attending Clinician Unavailable Pob, Adc Lab Main Attending Clinician Unavailable Altagracia Parkinson Attending Clinician Lab, Adc Fam Pob I Attending Clinician Unavailable Unknown, Attending Attending Clinician Unavailable UNKNOWN, ATTENDING Attending Clinician Unavailable Physician, No Primary or Family Admitting Clinician Unavaila Anastacio Andre Admitting Clinician Unavailable MICK SALAS Admitting Clinician Unavailable Payers Payer Name Policy Type Policy Number Effective Date Expiration Date S [facility] [place], [place] [employer] [place] - [id number] 2017 00:00:00 OUT OF STATE Problems Condition Condition Condition Status Onset Resolution Last Treating Co mments Source Name Details Category Date Date Treatment Clinician Date Primary Primary Disease Active Univers hypertensi hypertensi 4-05 it y of on on 00:00: [address] Vaginal Vaginal Disease Active Univers discharge discharge 9-03 ity of 00:00: [address] Abnormal Abnormal Disease Active Unive rs uterine uterine 3-21 ity of bleeding bleeding 00:00: [place] (AUB) (AUB) [address] [place] [address] Disease Active 2017-04 U nivers gland cyst gland cyst 0-28 it y of of left of left 00:00: [place] breast breast 00 Medical Branch History of History of Disease Active U nivers kidney kidney 11-25 ity of stones stones 00:00: [place] 00 Medical Branch SLE SLE Disease Active Univers (systemic (systemic 11-25 ity of lupus lupus 00:00: [place] erythemato erythemato 00 Me dical jodie) jodie) Branch Psoriasis Psoriasis Disease Active Uni vers 11-25 ity of 00:00: [place] 00 Medical Branch Hypercalce Hypercalce Disease Active U nivers [place] felton 11-25 ity of 00:00: [place] 00 Medical Branch Allergies, Adverse Reactions, Alerts Allergy Allergy Status Severity Reaction(s) Onset Inactive Treating Comm ents Source Name Type Date Date Clinician No Known DA Active [facility] [place] [facility] No Known DA Active [facility] 11[facility]12 [place] [facility] Sulfa Propensi Active Hives Possible Univer s (Sulfona ty to 3-03 allergy ity of mide adverse 00:00: [place] Antibiot reaction 00 Medica l ics) s Branch SULFA Drug Active Hives Univers (SULFONA Class 3-03 ity of MIDE 00:00: [place] ANTIBIOT 00 Medical ICS) Branch Social History Social Habit Start Date Stop Date Quantity Comments Source Exposure to 2022-07-05 2022-07-15 Not sure [facility] SARS-CoV-2 00:00:00 08:12:00 [facility] (event) Branch Tobacco use and 2021-10-29 2021-10-29 Smokeless tobacco Un iversity of exposure 00:00:00 00:00:00 non-user [facility] Alcohol intake 2021-10-29 2021-10-29 0 /d University of 00:00:00 00:00:00 [facility] Tobacco Comment 2021-10-29 2021-10-29 1 cig per day Univer sity of 00:00:00 00:00:00 [facility] History of 2015-10-18 Cigarette Smoker Universi ty of tobacco use 00:00:00 [facility] Sex [birth year] Universit y of 00:00:00 00:00:00 [facility] Smoking Status Start Date Stop Date Source Ex-smoker 2021-10-29 00:00:00 2021-10-29 00:00:00 [facility] Medications Ordered Filled Start Stop Current Ordering Indication Dosage Frequency Signature Comments Components Source Medication Medication Date Date Medication? Clinician (SIG) Name Name spironolact 2021-04 Yes [id number] 50mg Take 1 Univers one 50 mg 0-05 tablet by ity o f tablet 00:00: mouth in [place] the Medical morning. [place] spironolact 2021-04 Yes [id number] 50mg Take 1 Univers one 50 mg 0-05 tablet by ity o f tablet 00:00: mouth in [place] the morning. [place] spironolact 2021-04 Yes [id number] 50mg Take 1 Univers one 50 mg 0-05 tablet by ity o f tablet 00:00: mouth in [place] the morning. [place] spironolact 2021-04 Yes [id number] 50mg Take 1 Univers one 50 mg 0-05 tablet by ity o f tablet 00:00: mouth in [place] the morning. [place] spironolact 2021-04 Yes [id number] 50mg Take 1 Univers one 50 mg 0-05 tablet by ity o f tablet 00:00: mouth in [place] the morning. [place] spironolact 2021-04 Yes [id number] 50mg Take 1 Univers one 50 mg 0-05 tablet by ity o f tablet 00:00: mouth in [place] the morning. [place] spironolact 2021-04 Yes [id number] 50mg Take 1 Univers one 50 mg 0-05 tablet by ity o f tablet 00:00: mouth in [place] the morning. [place] spironolact 2021-04 Yes [id number] 50mg Take 1 Univers one 50 mg 0-05 tablet by ity o f tablet 00:00: mouth in [place] the morning. [place] spironolact 2021-04 Yes [id number] 50mg Take 1 Univers one 50 mg 0-05 tablet by ity o f tablet 00:00: mouth in [place] the Medical morning. [place] spironolact 2021-04 Yes [id number] 50mg Take 1 Univers one 50 mg 0-05 tablet by ity o f tablet 00:00: mouth in [place] the Medical morning. [place] spironolact 2021- Yes [id number] 50mg Take 1 Univers one 50 mg 0-05 tablet by ity o f tablet 00:00: mouth in [place] the Medical morning. Branch spironolact 2021- Yes [id number] 50mg Take 1 Univers one 50 mg 0-05 tablet by ity o f tablet 00:00: mouth in [place] the Medical morning. Branch spironolact 2021- Yes [id number] 50mg Take 1 Univers one 50 mg 0-05 tablet by ity o f tablet 00:00: mouth in [place] the Medical morning. Branch spironolact 2021- Yes [id number] 50mg Take 1 Univers one 50 mg 0-05 tablet by ity o f tablet 00:00: mouth in [place] the Medical morning. [place] spironolact 2021- Yes [id number] 50mg Take 1 Univers one 50 mg 0-05 tablet by ity o f tablet 00:00: mouth in [place] the morning. [place] spironolact 2021- Yes [id number] 50mg Take 1 Univers one 50 mg 0-05 tablet by ity o f tablet 00:00: mouth in [place] the Medical morning. [place] spironolact 2021-04 Yes [id number] 50mg Take 1 Univers one 50 mg 0-05 tablet by ity o f tablet 00:00: mouth in [place] the morning. [place] spironolact 2021- Yes [id number] 50mg Take 1 Univers one 50 mg 0-05 tablet by ity o f tablet 00:00: mouth in [place] the Medical morning. [place] guaiFENesin 2021-0 Yes [id number] 400mg Take 1 Univers 400 mg 7-13 tablet by ity of tablet 00:00: mouth [place] 00 every 4 Medical (four) Branch hours as needed for Cough. benzonatate 2021-0 Yes [id number] 200mg Take 2 Univers 100 mg 7-13 capsules ity of capsule 00:00: by mouth [place] 00 every 8 Medical (eight) Branch hours as needed for Cough. methylPREDN 2021-0 Yes [id number] Take by Univers ISolone 7-13 mouth ity of (MEDROL, 00:00: SEE-INSTRU [place] HILARY,) 4 mg 00 CTIONS. Medica l tablets follow Branch package directions albuterol 2021-0 Yes [id number] 2{puff} Inhale 2 Univers 90 7-13 Puffs ity of mcg/actuati 00:00: every 6 [place] as on inhaler 00 (six) Medical hours as Branch needed for Shortness of Breath. guaiFENesin 2021-0 Yes [id number] 400mg Take 1 Univers 400 mg 7-13 tablet by ity of tablet 00:00: mouth [place] 00 every 4 Medical (four) Branch hours as needed for Cough. benzonatate 2021-0 Yes [id number] 200mg Take 2 Univers 100 mg 7-13 capsules ity of capsule 00:00: by mouth [place] 00 every 8 Medical (eight) Branch hours as needed for Cough. methylPREDN 2021-0 Yes [id number] Take by Univers ISolone 7-13 mouth ity of (MEDROL, 00:00: SEE-INSTRU [place] HILARY,) 4 mg 00 CTIONS. Medica l tablets follow Branch package directions albuterol 2021-0 Yes [id number] 2{puff} Inhale 2 Univers 90 7-13 Puffs ity of mcg/actuati 00:00: every 6 [place] on inhaler 00 (six) Medical hours as Branch needed for Shortness of Breath. guaiFENesin 2021-0 Yes [id number] 400mg Take 1 Univers 400 mg 7-13 tablet by ity of tablet 00:00: mouth [place] 00 every 4 Medical (four) Branch hours as needed for Cough. benzonatate 2021-0 Yes [id number] 200mg Take 2 Univers 100 mg 7-13 capsules ity of capsule 00:00: by mouth [place] 00 every 8 Medical (eight) Branch hours as needed for Cough. methylPREDN 2021-0 Yes [id number] Take by Univers ISolone 7-13 mouth ity of (MEDROL, 00:00: SEE-INSTRU [place] HILARY,) 4 mg 00 CTIONS. Medica l tablets follow Branch package directions albuterol 2021-0 Yes [id number] 2{puff} Inhale 2 Univers 90 7-13 Puffs ity of mcg/actuati 00:00: every 6 [place] on inhaler 00 (six) Medical hours as Branch needed for Shortness of Breath. guaiFENesin 2021-0 Yes [id number] 400mg Take 1 Univers 400 mg 7-13 tablet by ity of tablet 00:00: mouth [place] 00 every 4 Medical (four) Branch hours as needed for Cough. benzonatate 2022-0 Yes [id number] 200mg Take 2 Univers 100 mg 7-13 capsules ity of capsule 00:00: by mouth [place] 00 every 8 Medical (eight) Branch hours as needed for Cough. methylPREDN 2022-0 Yes [id number] Take by Univers ISolone 7-13 mouth ity of (MEDROL, 00:00: SEE-INSTRU [place] HILARY,) 4 mg 00 CTIONS. Medica l tablets follow Branch package directions albuterol 2-0 Yes [id number] 2{puff} Inhale 2 Univers 90 7-13 Puffs ity of mcg/actuati 00:00: every 6 [place] on inhaler 00 (six) Medical hours as Branch needed for Shortness of Breath. guaiFENesin 2-0 Yes [id number] 400mg Take 1 Univers 400 mg 7-13 tablet by ity of tablet 00:00: mouth [place] 00 every 4 Medical (four) Branch hours as needed for Cough. benzonatate 202-0 Yes [id number] 200mg Take 2 Univers 100 mg 7-13 capsules ity of capsule 00:00: by mouth [place] 00 every 8 Medical (eight) Branch hours as needed for Cough. methylPREDN 2022-0 Yes [id number] Take by Univers ISolone 7-13 mouth ity of (MEDROL, 00:00: SEE-INSTRU [place] HILARY,) 4 mg 00 CTIONS. Medica l tablets follow Branch package directions albuterol 2022-0 Yes [id number] 2{puff} Inhale 2 Univers 90 7-13 Puffs ity of mcg/actuati 00:00: every 6 [place] on inhaler 00 (six) Medical hours as Branch needed for Shortness of Breath. guaiFENesin 2022-0 Yes [id number] 400mg Take 1 Univers 400 mg 7-13 tablet by ity of tablet 00:00: mouth [place] 00 every 4 Medical (four) Branch hours as needed for Cough. benzonatate 2022-0 Yes [id number] 200mg Take 2 Univers 100 mg 7-13 capsules ity of capsule 00:00: by mouth [place] 00 every 8 Medical (eight) Branch hours as needed for Cough. methylPREDN Yes [id number] Take by Univers ISolone 7-13 mouth ity of (MEDROL, 00:00: SEE-INSTRU [place] HILARY,) 4 mg 00 CTIONS. Medica l tablets follow Branch package directions albuterol Yes [id number] 2{puff} Inhale 2 Univers 90 7-13 Puffs ity of mcg/actuati 00:00: every 6 [place] on inhaler 00 (six) Medical hours as Branch needed for Shortness of Breath. guaiFENesin 2021- No [id number] 400mg Take 1 Univers 400 mg 7-13 10-05 tablet by ity of tablet 00:00: 00:00 mouth [place] 00 :00 every 4 Medical (four) Branch hours as needed for Cough. benzonatate 2021- No [id number] 200mg Take 2 Univers 100 mg 7-13 10-05 capsules ity of capsule 00:00: 00:00 by mouth [place] 00 :00 every 8 Medical (eight) Branch hours as needed for Cough. methylPREDN 2021- No [id number] Take by Univers ISolone 7-13 10-05 mouth ity of (MEDROL, 00:00: 00:00 SEE-INSTRU [place] HILARY,) 4 mg 00 :00 CTIONS. Medica l tablets follow Branch package directions albuterol 2021- No [id number] 2{puff} Inhale 2 Univers 90 7-13 10-05 Puffs ity of mcg/actuati 00:00: 00:00 every 6 [place] on inhaler 00 :00 (six) Medical hours as Branch needed for Shortness of Breath. guaiFENesin 2021- No [id number] 400mg Take 1 Univers 400 mg 7-13 10-05 tablet by ity of tablet 00:00: 00:00 mouth [place] 00 :00 every 4 Medical (four) Branch hours as needed for Cough. benzonatate 2021-2021- No [id number] 200mg Take 2 Univers 100 mg 7-13 10-05 capsules ity of capsule 00:00: 00:00 by mouth [place] 00 :00 every 8 Medical (eight) Branch hours as needed for Cough. methylPREDN 2021- No [id number] Take by Univers ISolone 7-13 10-05 mouth ity of (MEDROL, 00:00: 00:00 SEE-INSTRU [place] HILARY,) 4 mg 00 :00 CTIONS. Medica l tablets follow Branch package directions albuterol 2021- No [id number] 2{puff} Inhale 2 Univers 90 7-13 10-05 Puffs ity of mcg/actuati 00:00: 00:00 every 6 [place] on inhaler 00 :00 (six) Medical hours as Branch needed for Shortness of Breath. guaiFENesin 2021- No [id number] 400mg Take 1 Univers 400 mg 7-13 10-05 tablet by ity of tablet 00:00: 00:00 mouth [place] 00 :00 every 4 Medical (four) Branch hours as needed for Cough. benzonatate 2021- No [id number] 200mg Take 2 Univers 100 mg 7-13 10-05 capsules ity of capsule 00:00: 00:00 by mouth [place] 00 :00 every 8 Medical (eight) Branch hours as needed for Cough. methylPREDN 2021- No [id number] Take by Univers ISolone 7-13 10-05 mouth ity of (MEDROL, 00:00: 00:00 SEE-INSTRU [place] HILARY,) 4 mg 00 :00 CTIONS. Medica l tablets follow Branch package directions albuterol 2021- No [id number] 2{puff} Inhale 2 Univers 90 7-13 10-05 Puffs ity of mcg/actuati 00:00: 00:00 every 6 [place] on inhaler 00 :00 (six) Medical hours as Branch needed for Shortness of Breath. fluconazole Yes [id number] 200mg Take 1 Univers 200 mg 7-06 tablet by ity of tablet 00:00: mouth [place] 00 daily. Medical Branch fluconazole Yes [id number] 200mg Take 1 Univers 200 mg 7-06 tablet by ity of tablet 00:00: mouth [place] 00 daily. Medical Branch fluconazole Yes [id number] 200mg Take 1 Univers 200 mg 7-06 tablet by ity of tablet 00:00: mouth [place] 00 daily. Medical Branch fluconazole 2021-0 Yes [id number] 200mg Take 1 Univers 200 mg 7-06 tablet by ity of tablet 00:00: mouth [place] 00 daily. Medical Branch fluconazole 2021-0 Yes [id number] 200mg Take 1 Univers 200 mg 7-06 tablet by ity of tablet 00:00: mouth [place] 00 daily. Medical Branch fluconazole 2021-0 Yes [id number] 200mg Take 1 Univers 200 mg 7-06 tablet by ity of tablet 00:00: mouth [place] 00 daily. Medical Branch fluconazole 2021-0 Yes [id number] 200mg Take 1 Univers 200 mg 7-06 tablet by ity of tablet 00:00: mouth [place] 00 daily. Medical Branch fluconazole 2021-0 Yes [id number] 200mg Take 1 Univers 200 mg 7-06 tablet by ity of tablet 00:00: mouth [place] 00 daily. Medical Branch fluconazole 2021-0 Yes [id number] 200mg Take 1 Univers 200 mg 7-06 tablet by ity of tablet 00:00: mouth [place] 00 daily. Medical Branch fluconazole 2021-0 Yes [id number] 200mg Take 1 Univers 200 mg 7-06 tablet by ity of tablet 00:00: mouth [place] 00 daily. Medical Branch fluconazole 2021-0 2- No [id number] 200mg Take 1 Univers 200 mg 7-06 10-05 tablet by ity of tablet 00:00: 00:00 mouth [place] 00 :00 daily. Medical Branch fluconazole 2021-0 2022- No [id number] 200mg Take 1 Univers 200 mg 7-06 10-05 tablet by ity of tablet 00:00: 00:00 mouth [place] 00 :00 daily. Medical Branch fluconazole 2021-0 2- No [id number] 200mg Take 1 Univers 200 mg 7-06 10-05 tablet by ity of tablet 00:00: 00:00 mouth [place] 00 :00 daily. Medical Branch ferrous Yes Take by Univers sulfate 10-17 mouth. ity of (IRON ORAL) 13:56: [place] 44 Medical Branch multivit Yes Take by Univer s with 10-17 mouth. ity of calcium,iro 13:56: [place] n,min 44 Medical (MULTIPLE Branch VITAMIN, WOMENS ORAL) ferrous Yes Take by Univers sulfate 7- mouth. ity of (IRON ORAL) 13:56: [address] Branch multivit 202-0 Yes Take by Univer s with 7- mouth. ity of calcium,iro 13:56: [facility] Medical (MULTIPLE Branch VITAMIN, WOMENS ORAL) ferrous 2021-0 Yes Take by Univers sulfate 7- mouth. ity of (IRON ORAL) 13:56: [address] Branch multivit 0 Yes Take by Univer s with 7- mouth. ity of calcium,iro 13:56: [facility] Medical (MULTIPLE Branch VITAMIN, WOMENS ORAL) ferrous 0 Yes Take by Univers sulfate 7-01 mouth. ity of (IRON ORAL) 13:56: [address] Branch multivit 0 Yes Take by Univer s with 7- mouth. ity of calcium,iro 13:56: [place] [address] Medical (MULTIPLE Branch VITAMIN, WOMENS ORAL) ferrous 2021-0 Yes Take by Univers sulfate 7- mouth. ity of (IRON ORAL) 13:56: [address] Branch multivit 0 Yes Take by Univer s with 7- mouth. ity of calcium,iro 13:56: [place] [address] Medical (MULTIPLE Branch VITAMIN, WOMENS ORAL) ferrous 2021-0 Yes Take by Univers sulfate 7- mouth. ity of (IRON ORAL) 13:56: [address] Branch multivit 0 Yes Take by Univer s with 7- mouth. ity of calcium,iro 13:56: [place] [address] Medical (MULTIPLE Branch VITAMIN, WOMENS ORAL) ferrous 2021-0 Yes Take by Univers sulfate 7-01 mouth. ity of (IRON ORAL) 13:56: [place] [address] Medical Branch multivit 202-0 Yes Take by Univer s with 7-01 mouth. ity of calcium,iro 13:56: [facility] Medical (MULTIPLE Branch VITAMIN, WOMENS ORAL) ferrous 2021-0 Yes Take by Univers sulfate 7-01 mouth. ity of (IRON ORAL) 13:56: [address] Branch multivit 202-0 Yes Take by Univer s with 7-01 mouth. ity of calcium,iro 13:56: [facility] Medical (MULTIPLE Branch VITAMIN, WOMENS ORAL) ferrous 2021-0 Yes Take by Univers sulfate 7-01 mouth. ity of (IRON ORAL) 13:56: [address] Branch multivit 202-0 Yes Take by Univer s with 7- mouth. ity of calcium,iro 13:56: [facility] Medical (MULTIPLE Branch VITAMIN, WOMENS ORAL) ferrous 2021-0 Yes Take by Univers sulfate 7-01 mouth. ity of (IRON ORAL) 13:56: [address] Branch multivit 2021-0 Yes Take by Univer s with 7-01 mouth. ity of calcium,iro 13:56: [place] [address] Medical (MULTIPLE Branch VITAMIN, WOMENS ORAL) ferrous 2021-0 Yes Take by Univers sulfate 7-01 mouth. ity of (IRON ORAL) 13:56: [address] Branch multivit 0 Yes Take by Univer s with 7-01 mouth. ity of calcium,iro 13:56: [place] [address] Medical (MULTIPLE Branch VITAMIN, WOMENS ORAL) ferrous 2021-0 Yes Take by Univers sulfate 7-01 mouth. ity of (IRON ORAL) 13:56: [address] Branch multivit 0 Yes Take by Univer s with 7- mouth. ity of calcium,iro 13:56: [place] [address] Medical (MULTIPLE Branch VITAMIN, WOMENS ORAL) ferrous 2021-0 Yes Take by Univers sulfate 7-01 mouth. ity of (IRON ORAL) 13:56: [address] multivit 0 Yes Take by Univer s with 7- mouth. ity of calcium,iro 13:56: [place] [address] Medical (MULTIPLE Branch VITAMIN, WOMENS ORAL) ferrous 2021-0 Yes Take by Univers sulfate 7-01 mouth. ity of (IRON ORAL) 13:56: [address] Branch multivit 202-0 Yes Take by Univer s with 7-01 mouth. ity of calcium,iro 13:56: [place] [address] Medical (MULTIPLE Branch VITAMIN, WOMENS ORAL) ferrous 2021-0 Yes Take by Univers sulfate 7-01 mouth. ity of (IRON ORAL) 13:56: [address] Branch multivit 202-0 Yes Take by Univer s with 7-01 mouth. ity of calcium,iro 13:56: [facility] Medical (MULTIPLE Branch VITAMIN, WOMENS ORAL) ferrous 2021-0 Yes Take by Univers sulfate 7-01 mouth. ity of (IRON ORAL) 13:56: [address] multivit 0 Yes Take by Univer s with 7- mouth. ity of calcium,iro 13:56: [facility] Medical (MULTIPLE Branch VITAMIN, WOMENS ORAL) ferrous 2021-0 Yes Take by Univers sulfate 7- mouth. ity of (IRON ORAL) 13:56: [address] multivit 0 Yes Take by Univer s with 7-01 mouth. ity of calcium,iro 13:56: [facility] Medical (MULTIPLE Branch VITAMIN, WOMENS ORAL) ferrous 2021-0 Yes Take by Univers sulfate 7- mouth. ity of (IRON ORAL) 13:56: [address] multivit 0 Yes Take by Univer s with 7- mouth. ity of calcium,iro 13:56: [place] [address] Medical (MULTIPLE Branch VITAMIN, WOMENS ORAL) ferrous 2021-0 Yes Take by Univers sulfate 7-01 mouth. ity of (IRON ORAL) 13:56: [address] multivit 0 Yes Take by Univer s with 7- mouth. ity of calcium,iro 13:56: [facility] Medical (MULTIPLE Branch VITAMIN, WOMENS ORAL) ferrous 2021-0 Yes Take by Univers sulfate 7-01 mouth. ity of (IRON ORAL) 13:56: [address] multivit 0 Yes Take by Univer s with 7-01 mouth. ity of calcium,iro 13:56: [facility] Medical (MULTIPLE Branch VITAMIN, WOMENS ORAL) ferrous 2021-0 Yes Take by Univers sulfate 7-01 mouth. ity of (IRON ORAL) 13:56: [address] multivit 0 Yes Take by Univer s with 7-01 mouth. ity of calcium,iro 13:56: [facility] Medical (MULTIPLE Branch VITAMIN, WOMENS ORAL) ferrous 2021-0 Yes Take by Univers sulfate 7-01 mouth. ity of (IRON ORAL) 13:56: [address] multivit 202-0 Yes Take by Univer s with 7-01 mouth. ity of calcium,iro 13:56: [facility] Medical (MULTIPLE Branch VITAMIN, WOMENS ORAL) ferrous 2021-0 Yes Take by Univers sulfate 7-01 mouth. ity of (IRON ORAL) 13:56: [address] multivit 202-0 Yes Take by Univer s with 7-01 mouth. ity of calcium,iro 13:56: [place] [address] Medical (MULTIPLE Branch VITAMIN, WOMENS ORAL) ferrous 2021-0 Yes Take by Univers sulfate 7-01 mouth. ity of (IRON ORAL) 13:56: [address] Branch multivit 2021-0 Yes Take by Univer s with 7-01 mouth. ity of calcium,iro 13:56: [place] [address] Medical (MULTIPLE Branch VITAMIN, WOMENS ORAL) ferrous 2021-0 Yes Take by Univers sulfate 7-01 mouth. ity of (IRON ORAL) 13:56: [address] multivit 0 Yes Take by Univer s with 7-01 mouth. ity of calcium,iro 13:56: [place] [address] Medical (MULTIPLE Branch VITAMIN, WOMENS ORAL) ferrous 2021-0 Yes Take by Univers sulfate 7-01 mouth. ity of (IRON ORAL) 13:56: [address] multivit 0 Yes Take by Univer s with 7-01 mouth. ity of calcium,iro 13:56: [place] [address] Medical (MULTIPLE Branch VITAMIN, WOMENS ORAL) ferrous 2021-0 Yes Take by Univers sulfate 7-01 mouth. ity of (IRON ORAL) 13:56: [address] Branch multivit 202-0 Yes Take by Univer s with 7-01 mouth. ity of calcium,iro 13:56: [place] [address] Medical (MULTIPLE Branch VITAMIN, WOMENS ORAL) ferrous 2021-0 Yes Take by Univers sulfate 7-01 mouth. ity of (IRON ORAL) 13:56: [address] Branch multivit 202-0 Yes Take by Univer s with 7-01 mouth. ity of calcium,iro 13:56: [place] [address] Medical (MULTIPLE Branch VITAMIN, WOMENS ORAL) ferrous 2021-0 Yes Take by Univers sulfate 7-01 mouth. ity of (IRON ORAL) 13:56: [place] 44 Medical Branch multivit Yes Take by Univer s with 10-17 mouth. ity of calcium,iro 13:56: [place] n,min 44 Medical (MULTIPLE Branch VITAMIN, WOMENS ORAL) Nitrofurant 2021- No [id number] 100mg Take 1 Univers oin&Nit. 10-17- capsule by ity of [place] 00:00: 04:59 mouth 2 [place] as (MACROBID) 00 :00 (two) Medical 100 mg times Branch capsule daily for 7 days. Nitrofurant 2021- No [id number] 100mg Take 1 Univers oin&Nit. 10-17 capsule by ity of [facility] 00:00: 04:59 mouth 2 [place] (MACROBID) 00 :00 (two) Medical 100 mg times Branch capsule daily for 7 days. Nitrofurant Yes [id number] 100mg Take 1 Univers oin&Nit. 6-13 capsule by ity o f [facility] 00:00: mouth as [place] (MACROBID) 00 needed Medical 100 mg (after Branch capsule intercours e to prevent UTIs). Nitrofurant Yes [id number] 100mg Take 1 Univers oin&Nit. 6-13 capsule by ity o f [facility] 00:00: mouth as [place] (MACROBID) 00 needed Medical 100 mg (after Branch capsule intercours e to prevent UTIs). Nitrofurant Yes [id number] 100mg Take 1 [facility] oin&Nit. 6-13 capsule by ity o f [facility] 00:00: mouth as [place] (MACROBID) 00 needed Medical 100 mg (after Branch capsule intercours e to prevent UTIs). Nitrofurant Yes [id number] 100mg Take 1 [facility] oin&Nit. 6-13 capsule by ity o f [facility] 00:00: mouth as [place] (MACROBID) 00 needed Medical 100 mg (after Branch capsule intercours e to prevent UTIs). Nitrofurant Yes [id number] 100mg Take 1 [facility] oin&Nit. 6-13 capsule by ity o f [facility] 00:00: mouth as [place] (MACROBID) 00 needed Medical 100 mg (after Branch capsule intercours e to prevent UTIs). Nitrofurant Yes 100mg Take 1 [facility] oin&Nit. 6-13 capsule by ity o f [facility] 00:00: mouth as [place] (MACROBID) 00 needed Medical 100 mg (after Branch capsule intercours e to prevent UTIs). Nitrofurant Yes 100mg Take 1 [facility] oin&Nit. 6-13 capsule by ity o f [facility] 00:00: mouth as [place] (MACROBID) 00 needed Medical 100 mg (after Branch capsule intercours e to prevent UTIs). Nitrofurant Yes 100mg Take 1 [facility] oin&Nit. 6-13 capsule by ity o f [facility] 00:00: mouth as [place] (MACROBID) 00 needed Medical 100 mg (after Branch capsule intercours e to prevent UTIs). Nitrofurant Yes 100mg Take 1 [facility] oin&Nit. 6-13 capsule by ity o f [facility] 00:00: mouth as [place] (MACROBID) 00 needed Medical 100 mg (after Branch capsule intercours e to prevent UTIs). Nitrofurant Yes 100mg Take 1 [facility] oin&Nit. 6-13 capsule by [employer] o f [facility] 00:00: mouth as [place] (MACROBID) 00 needed Medical 100 mg (after Branch capsule intercours e to prevent UTIs). Nitrofurant Yes 100mg Take 1 [facility] oin&Nit. 6-13 capsule by ity o f [facility] 00:00: mouth as [place] (MACROBID) 00 needed Medical 100 mg (after Branch capsule intercours e to prevent UTIs). Nitrofurant Yes 100mg Take 1 [facility] oin&Nit. 6-13 capsule by ity o f [facility] 00:00: mouth as [place] (MACROBID) 00 needed Medical 100 mg (after Branch capsule intercours e to prevent UTIs). Nitrofurant Yes 100mg Take 1 [facility] oin&Nit. 6-13 capsule by ity o f [facility] 00:00: mouth as [place] (MACROBID) 00 needed Medical 100 mg (after Branch capsule intercours e to prevent UTIs). Nitrofurant Yes 100mg Take 1 [facility] oin&Nit. 6-13 capsule by ity o f [facility] 00:00: mouth as [place] (MACROBID) 00 needed Medical 100 mg (after Branch capsule intercours e to prevent UTIs). Nitrofurant Yes 100mg Take 1 [facility] oin&Nit. 6-13 capsule by ity o f [facility] 00:00: mouth as [place] (MACROBID) 00 needed Medical 100 mg (after Branch capsule intercours e to prevent UTIs). Nitrofurant Yes 100mg Take 1 [facility] oin&Nit. 6-13 capsule by ity o f [facility] 00:00: mouth as [place] (MACROBID) 00 needed Medical 100 mg (after Branch capsule intercours e to prevent UTIs). Nitrofurant Yes 100mg Take 1 [facility] oin&Nit. 6-13 capsule by ity o f [facility] 00:00: mouth as [place] (MACROBID) 00 needed Medical 100 mg (after Branch capsule intercours e to prevent UTIs). Nitrofurant Yes 100mg Take 1 [facility] oin&Nit. 6-13 capsule by ity o f [facility] 00:00: mouth as [place] (MACROBID) 00 needed Medical 100 mg (after Branch capsule intercours e to prevent UTIs). Nitrofurant Yes 100mg Take 1 [facility] oin&Nit. 6-13 capsule by ity o f [facility] 00:00: mouth as [place] (MACROBID) 00 needed Medical 100 mg (after Branch capsule intercours e to prevent UTIs). Nitrofurant Yes 100mg Take 1 [facility] oin&Nit. 6-13 capsule by ity o f [facility] 00:00: mouth as [place] (MACROBID) 00 needed Medical 100 mg (after Branch capsule intercours e to prevent UTIs). Nitrofurant Yes 100mg Take 1 [facility] oin&Nit. 6-13 capsule by ity o f [facility] 00:00: mouth as [place] (MACROBID) 00 needed Medical 100 mg (after Branch capsule intercours e to prevent UTIs). Nitrofurant Yes 100mg Take 1 [facility] oin&Nit. 6-13 capsule by ity o f [facility] 00:00: mouth as [place] (MACROBID) 00 needed Medical 100 mg (after Branch capsule intercours e to prevent UTIs). Nitrofurant Yes 100mg Take 1 [facility] oin&Nit. 6-13 capsule by ity o f [facility] 00:00: mouth as [place] (MACROBID) 00 needed Medical 100 mg (after Branch capsule intercours e to prevent UTIs). Nitrofurant Yes 100mg Take 1 [facility] oin&Nit. 6-13 capsule by ity o f [facility] 00:00: mouth as [place] (MACROBID) 00 needed Medical 100 mg (after Branch capsule intercours e to prevent UTIs). Nitrofurant Yes 100mg Take 1 [facility] oin&Nit. 6-13 capsule by ity o f [facility] 00:00: mouth as [place] (MACROBID) 00 needed Medical 100 mg (after Branch capsule intercours e to prevent UTIs). Nitrofurant Yes 100mg Take 1 [facility] oin&Nit. 6-13 capsule by ity o f [facility] 00:00: mouth as [place] (MACROBID) 00 needed Medical 100 mg (after Branch capsule intercours e to prevent UTIs). Nitrofurant Yes 100mg Take 1 [facility] oin&Nit. 6-13 capsule by ity o f [facility] 00:00: mouth as [place] (MACROBID) 00 needed Medical 100 mg (after Branch capsule intercours e to prevent UTIs). Nitrofurant Yes 100mg Take 1 [facility] oin&Nit. 6-13 capsule by ity o f [facility] 00:00: mouth as [place] (MACROBID) 00 needed Medical 100 mg (after Branch capsule intercours e to prevent UTIs). Nitrofurant Yes [id number] 100mg Take 1 [facility] oin&Nit. 6-13 capsule by ity o f [facility] 00:00: mouth as [place] (MACROBID) 00 needed Medical 100 mg (after Branch capsule intercours e to prevent UTIs). metoprolol Yes TAKE 1 Unive rs succinate 6-09 TABLET BY ity o f XL 50 mg 24 00:00: MOUTH [place] hr tablet 00 EVERY DAY Medic al FOR 30 Branch DAYS metoprolol Yes TAKE 1 Unive rs succinate 6-09 TABLET BY ity o f XL 50 mg 24 00:00: MOUTH [place] hr tablet 00 EVERY DAY Medic al FOR 30 Branch DAYS metoprolol Yes TAKE 1 Unive rs succinate 6-09 TABLET BY ity o f XL 50 mg 24 00:00: MOUTH [place] hr tablet 00 EVERY DAY Medic al FOR 30 Branch DAYS metoprolol Yes TAKE 1 Unive rs succinate 6-09 TABLET BY ity o f XL 50 mg 24 00:00: MOUTH [place] hr tablet 00 EVERY DAY Medic al FOR 30 Branch DAYS metoprolol Yes TAKE 1 Unive rs succinate 6-09 TABLET BY ity o f XL 50 mg 24 00:00: MOUTH [place] hr tablet 00 EVERY DAY Medic al FOR 30 Branch DAYS metoprolol Yes TAKE 1 Unive rs succinate 6-09 TABLET BY ity o f XL 50 mg 24 00:00: MOUTH [place] hr tablet 00 EVERY DAY Medic al FOR 30 Branch DAYS metoprolol Yes TAKE 1 Unive rs succinate 6-09 TABLET BY ity o f XL 50 mg 24 00:00: MOUTH [place] hr tablet 00 EVERY DAY Medic al FOR 30 Branch DAYS metoprolol Yes TAKE 1 Unive rs succinate 6-09 TABLET BY ity o f XL 50 mg 24 00:00: MOUTH [place] hr tablet 00 EVERY DAY Medic al FOR 30 Branch DAYS metoprolol Yes TAKE 1 Unive rs succinate 6-09 TABLET BY ity o f XL 50 mg 24 00:00: MOUTH [place] hr tablet 00 EVERY DAY Medic al FOR 30 Branch DAYS metoprolol Yes TAKE 1 Unive rs succinate 6-09 TABLET BY ity o f XL 50 mg 24 00:00: MOUTH [place] hr tablet 00 EVERY DAY Medic al FOR 30 Branch DAYS metoprolol Yes TAKE 1 Unive rs succinate 6-09 TABLET BY ity o f XL 50 mg 24 00:00: MOUTH [place] hr tablet 00 EVERY DAY Medic al FOR 30 Branch DAYS metoprolol 0 Yes TAKE 1 Unive rs succinate 6-09 TABLET BY ity o f XL 50 mg 24 00:00: MOUTH [place] hr tablet 00 EVERY DAY Medic al FOR 30 Branch DAYS metoprolol 0 Yes TAKE 1 Unive rs succinate 6-09 TABLET BY ity o f XL 50 mg 24 00:00: MOUTH [place] hr tablet 00 EVERY DAY Medic al FOR 30 Branch DAYS metoprolol 0 Yes TAKE 1 Unive rs succinate 6-09 TABLET BY ity o f XL 50 mg 24 00:00: MOUTH [place] hr tablet 00 EVERY DAY Medic al FOR 30 Branch DAYS metoprolol 0 Yes TAKE 1 Unive rs succinate 6-09 TABLET BY ity o f XL 50 mg 24 00:00: MOUTH [place] hr tablet 00 EVERY DAY Medic al FOR 30 Branch DAYS metoprolol 0 Yes TAKE 1 Unive rs succinate 6-09 TABLET BY ity o f XL 50 mg 24 00:00: MOUTH [place] hr tablet 00 EVERY DAY Medic al FOR 30 Branch DAYS metoprolol 0 Yes TAKE 1 Unive rs succinate 6-09 TABLET BY ity o f XL 50 mg 24 00:00: MOUTH [place] hr tablet 00 EVERY DAY Medic al FOR 30 Branch DAYS metoprolol 0 Yes TAKE 1 Unive rs succinate 6-09 TABLET BY ity o f XL 50 mg 24 00:00: MOUTH [place] hr tablet 00 EVERY DAY Medic al FOR 30 Branch DAYS metoprolol 0 Yes TAKE 1 Unive rs succinate 6-09 TABLET BY ity o f XL 50 mg 24 00:00: MOUTH [place] hr tablet 00 EVERY DAY Medic al FOR 30 Branch DAYS metoprolol 0 Yes TAKE 1 Unive rs succinate 6-09 TABLET BY ity o f XL 50 mg 24 00:00: MOUTH [place] hr tablet 00 EVERY DAY Medic al FOR 30 Branch DAYS metoprolol 0 Yes TAKE 1 Unive rs succinate 6-09 TABLET BY ity o f XL 50 mg 24 00:00: MOUTH [place] hr tablet 00 EVERY DAY Medic al FOR 30 Branch DAYS metoprolol 0 Yes TAKE 1 Unive rs succinate 6-09 TABLET BY ity o f XL 50 mg 24 00:00: MOUTH [place] hr tablet 00 EVERY DAY Medic al FOR 30 Branch DAYS metoprolol 2021-0 Yes TAKE 1 Unive rs succinate 6-09 TABLET BY ity o f XL 50 mg 24 00:00: MOUTH [place] hr tablet 00 EVERY DAY Medic al FOR 30 Branch DAYS metoprolol 2021-0 Yes TAKE 1 Unive rs succinate 6-09 TABLET BY ity o f XL 50 mg 24 00:00: MOUTH [place] hr tablet 00 EVERY DAY Medic al FOR 30 Branch DAYS metoprolol 2021-0 Yes TAKE 1 Unive rs succinate 6-09 TABLET BY ity o f XL 50 mg 24 00:00: MOUTH [place] hr tablet 00 EVERY DAY Medic al FOR 30 Branch DAYS metoprolol 2021-0 Yes TAKE 1 Unive rs succinate 6-09 TABLET BY ity o f XL 50 mg 24 00:00: MOUTH [place] hr tablet 00 EVERY DAY Medic al FOR 30 Branch DAYS metoprolol 2021-0 Yes TAKE 1 Unive rs succinate 6-09 TABLET BY ity o f XL 50 mg 24 00:00: MOUTH [place] hr tablet 00 EVERY DAY Medic al FOR 30 Branch DAYS metoprolol 2021-0 Yes TAKE 1 Unive rs succinate 6-09 TABLET BY ity o f XL 50 mg 24 00:00: MOUTH [place] hr tablet 00 EVERY DAY Medic al FOR 30 Branch DAYS metoprolol 2021-0 Yes TAKE 1 Unive rs succinate 6-09 TABLET BY ity o f XL 50 mg 24 00:00: MOUTH [place] hr tablet 00 EVERY DAY Medic al FOR 30 Branch DAYS spironolact 2021-0 Yes [id number] 50mg Take 1 Univers one 50 mg 4-05 tablet by ity o f tablet 00:00: mouth [place] 00 daily. Medical Branch spironolact 2021-0 Yes [id number] 50mg Take 1 Univers one 50 mg 4-05 tablet by ity o f tablet 00:00: mouth [place] 00 daily. Medical Branch spironolact 2021-0 Yes [id number] 50mg Take 1 Univers one 50 mg 4-05 tablet by ity o f tablet 00:00: mouth [place] 00 daily. Medical Branch spironolact 2021-0 Yes [id number] 50mg Take 1 Univers one 50 mg 4-05 tablet by ity o f tablet 00:00: mouth [place] 00 daily. Medical Branch spironolact Yes [id number] 50mg Take 1 Univers one 50 mg 4-05 tablet by ity o f tablet 00:00: mouth [place] 00 daily. Medical Branch spironolact Yes [id number] 50mg Take 1 Univers one 50 mg 4-05 tablet by ity o f tablet 00:00: mouth [place] 00 daily. Medical Branch spironolact Yes [id number] 50mg Take 1 Univers one 50 mg 4-05 tablet by ity o f tablet 00:00: mouth [place] 00 daily. Medical Branch spironolact Yes [id number] 50mg Take 1 Univers one 50 mg 4-05 tablet by ity o f tablet 00:00: mouth [place] 00 daily. Medical Branch spironolact Yes [id number] 50mg Take 1 Univers one 50 mg 4-05 tablet by ity o f tablet 00:00: mouth [place] 00 daily. Medical Branch spironolact Yes [id number] 50mg Take 1 Univers one 50 mg 4-05 tablet by ity o f tablet 00:00: mouth [place] 00 daily. Medical Branch spironolact Yes [id number] 50mg Take 1 Univers one 50 mg 4-05 tablet by ity o f tablet 00:00: mouth [place] 00 daily. Medical Branch spironolact 2021- No [id number] 50mg Take 1 Univers one 50 mg 4-05 10-05 tablet by ity of tablet 00:00: 00:00 mouth [place] 00 :00 daily. Medical Branch spironolact 2021- No [id number] 50mg Take 1 [facility] one 50 mg 4-05 10-05 tablet by ity of tablet 00:00: 00:00 mouth [place] 00 :00 daily. Medical Branch spironolact 2021- No [id number] 50mg Take 1 [facility] one 50 mg 4-05 10-05 tablet by ity of tablet 00:00: 00:00 mouth [place] 00 :00 daily. Medical Branch proMETHazin Yes [id number] 25mg Take 1 Univers e 25 mg 3-16 tablet by ity of tablet 00:00: mouth [place] 00 every 4 Medical (four) Branch hours as needed for Nausea and Vomiting (N/V). proMETHazin 2022-0 Yes [id number] 25mg Take 1 Univers e 25 mg 3-16 tablet by ity of tablet 00:00: mouth [place] 00 every 4 Medical (four) Branch hours as needed for Nausea and Vomiting (N/V). proMETHazin 2021-0 Yes [id number] 25mg Take 1 Univers e 25 mg 3-16 tablet by ity of tablet 00:00: mouth [place] 00 every 4 Medical (four) Branch hours as needed for Nausea and Vomiting (N/V). proMETHazin 2021-0 Yes [id number] 25mg Take 1 Univers e 25 mg 3-16 tablet by ity of tablet 00:00: mouth [place] 00 every 4 Medical (four) Branch hours as needed for Nausea and Vomiting (N/V). proMETHazin 2021-0 Yes [id number] 25mg Take 1 Univers e 25 mg 3-16 tablet by ity of tablet 00:00: mouth [place] 00 every 4 Medical (four) Branch hours as needed for Nausea and Vomiting (N/V). proMETHazin 2021-0 Yes [id number] 25mg Take 1 Univers e 25 mg 3-16 tablet by ity of tablet 00:00: mouth [place] 00 every 4 Medical (four) Branch hours as needed for Nausea and Vomiting (N/V). proMETHazin 2021-0 Yes [id number] 25mg Take 1 Univers e 25 mg 3-16 tablet by ity of tablet 00:00: mouth [place] 00 every 4 Medical (four) Branch hours as needed for Nausea and Vomiting (N/V). proMETHazin 2021-0 Yes [id number] 25mg Take 1 Univers e 25 mg 3-16 tablet by ity of tablet 00:00: mouth [place] 00 every 4 Medical (four) Branch hours as needed for Nausea and Vomiting (N/V). proMETHazin 2021-0 Yes [id number] 25mg Take 1 Univers e 25 mg 3-16 tablet by ity of tablet 00:00: mouth [place] 00 every 4 Medical (four) Branch hours as needed for Nausea and Vomiting (N/V). proMETHazin 2021-0 Yes [id number] 25mg Take 1 Univers e 25 mg 3-16 tablet by ity of tablet 00:00: mouth [place] 00 every 4 Medical (four) Branch hours as needed for Nausea and Vomiting (N/V). proMETHazin 2021-0 Yes [id number] 25mg Take 1 Univers e 25 mg 3-16 tablet by ity of tablet 00:00: mouth [place] 00 every 4 Medical (four) Branch hours as needed for Nausea and Vomiting (N/V). proMETHazin 2021-0 Yes [id number] 25mg Take 1 Univers e 25 mg 3-16 tablet by ity of tablet 00:00: mouth [place] 00 every 4 Medical (four) Branch hours as needed for Nausea and Vomiting (N/V). proMETHazin 2021-0 Yes [id number] 25mg Take 1 Univers e 25 mg 3-16 tablet by ity of tablet 00:00: mouth [place] 00 every 4 Medical (four) Branch hours as needed for Nausea and Vomiting (N/V). proMETHazin 2021-0 Yes [id number] 25mg Take 1 Univers e 25 mg 3-16 tablet by ity of tablet 00:00: mouth [place] 00 every 4 Medical (four) Branch hours as needed for Nausea and Vomiting (N/V). proMETHazin 2021-0 Yes [id number] 25mg Take 1 Univers e 25 mg 3-16 tablet by ity of tablet 00:00: mouth [place] 00 every 4 Medical (four) Branch hours as needed for Nausea and Vomiting (N/V). proMETHazin 2021-0 Yes [id number] 25mg Take 1 Univers e 25 mg 3-16 tablet by ity of tablet 00:00: mouth [place] 00 every 4 Medical (four) Branch hours as needed for Nausea and Vomiting (N/V). proMETHazin 2021-0 Yes [id number] 25mg Take 1 Univers e 25 mg 3-16 tablet by ity of tablet 00:00: mouth [place] 00 every 4 Medical (four) Branch hours as needed for Nausea and Vomiting (N/V). proMETHazin 2021-0 Yes [id number] 25mg Take 1 Univers e 25 mg 3-16 tablet by ity of tablet 00:00: mouth [place] 00 every 4 Medical (four) Branch hours as needed for Nausea and Vomiting (N/V). proMETHazin 2021-0 Yes [id number] 25mg Take 1 Univers e 25 mg 3-16 tablet by ity of tablet 00:00: mouth [place] 00 every 4 Medical (four) Branch hours as needed for Nausea and Vomiting (N/V). proMETHazin 2-0 Yes [id number] 25mg Take 1 Univers e 25 mg 3-16 tablet by ity of tablet 00:00: mouth [place] 00 every 4 Medical (four) Branch hours as needed for Nausea and Vomiting (N/V). proMETHazin 2-0 Yes [id number] 25mg Take 1 Univers e 25 mg 3-16 tablet by ity of tablet 00:00: mouth [place] 00 every 4 Medical (four) Branch hours as needed for Nausea and Vomiting (N/V). proMETHazin 2021-0 Yes [id number] 25mg Take 1 Univers e 25 mg 3-16 tablet by ity of tablet 00:00: mouth [place] 00 every 4 Medical (four) Branch hours as needed for Nausea and Vomiting (N/V). proMETHazin 2-0 Yes [id number] 25mg Take 1 Univers e 25 mg 3-16 tablet by ity of tablet 00:00: mouth [place] 00 every 4 Medical (four) Branch hours as needed for Nausea and Vomiting (N/V). proMETHazin 2021-0 Yes [id number] 25mg Take 1 Univers e 25 mg 3-16 tablet by ity of tablet 00:00: mouth [place] 00 every 4 Medical (four) Branch hours as needed for Nausea and Vomiting (N/V). proMETHazin 2021-0 Yes [id number] 25mg Take 1 Univers e 25 mg 3-16 tablet by ity of tablet 00:00: mouth [place] 00 every 4 Medical (four) Branch hours as needed for Nausea and Vomiting (N/V). proMETHazin 2-0 Yes [id number] 25mg Take 1 Univers e 25 mg 3-16 tablet by ity of tablet 00:00: mouth [place] 00 every 4 Medical (four) Branch hours as needed for Nausea and Vomiting (N/V). proMETHazin 2022-0 Yes [id number] 25mg Take 1 Univers e 25 mg 3-16 tablet by ity of tablet 00:00: mouth [place] 00 every 4 Medical (four) Branch hours as needed for Nausea and Vomiting (N/V). proMETHazin 2022-0 Yes [id number] 25mg Take 1 Univers e 25 mg 3-16 tablet by ity of tablet 00:00: mouth [place] 00 every 4 Medical (four) Branch hours as needed for Nausea and Vomiting (N/V). proMETHazin Yes [id number] 25mg Take 1 Univers e 25 mg 3-16 tablet by ity of tablet 00:00: mouth [place] 00 every 4 Medical (four) Branch hours as needed for Nausea and Vomiting (N/V). Nitrofurant Yes 100mg Take 1 Univers oin&Nit. 1-21 capsule by ity o f [facility] 00:00: mouth as [place] (MACROBID) 00 needed Medical 100 mg (after Branch capsule intercours e to prevent UTI). Nitrofurant Yes 100mg Take 1 Univers oin&Nit. 1-21 capsule by ity o f [facility] 00:00: mouth as [place] (MACROBID) 00 needed Medical 100 mg (after Branch capsule intercours e to prevent UTI). Nitrofurant Yes 100mg Take 1 Univers oin&Nit. 1-21 capsule by ity o f [facility] 00:00: mouth as [place] (MACROBID) 00 needed Medical 100 mg (after Branch capsule intercours e to prevent UTI). Nitrofurant Yes 100mg Take 1 Univers oin&Nit. 1-21 capsule by ity o f [facility] 00:00: mouth as [place] (MACROBID) 00 needed Medical 100 mg (after Branch capsule intercours e to prevent UTI). Nitrofurant Yes 100mg Take 1 Univers oin&Nit. 1-21 capsule by ity o f [facility] 00:00: mouth as [place] (MACROBID) 00 needed Medical 100 mg (after Branch capsule intercours e to prevent UTI). Nitrofurant Yes 100mg Take 1 Univers oin&Nit. 1-21 capsule by ity o f [facility] 00:00: mouth as [place] (MACROBID) 00 needed Medical 100 mg (after Branch capsule intercours e to prevent UTI). Nitrofurant Yes 100mg Take 1 Univers oin&Nit. 1-21 capsule by ity o f [facility] 00:00: mouth as [place] (MACROBID) 00 needed Medical 100 mg (after Branch capsule intercours e to prevent UTI). Nitrofurant Yes [id number] 100mg Take 1 Univers oin&Nit. 1-21 capsule by ity o f [facility] 00:00: mouth as [place] (MACROBID) 00 needed Medical 100 mg (after Branch capsule intercours e to prevent UTI). Nitrofurant Yes [id number] 100mg Take 1 Univers oin&Nit. 1-21 capsule by ity o f [facility] 00:00: mouth as [place] (MACROBID) 00 needed Medical 100 mg (after Branch capsule intercours e to prevent UTI). Nitrofurant Yes [id number] 100mg Take 1 Univers oin&Nit. 1-21 capsule by ity o f [facility] 00:00: mouth as [place] (MACROBID) 00 needed Medical 100 mg (after Branch capsule intercours e to prevent UTI). Nitrofurant Yes [id number] 100mg Take 1 Univers oin&Nit. 1-21 capsule by ity o f [facility] 00:00: mouth as [place] (MACROBID) 00 needed Medical 100 mg (after Branch capsule intercours e to prevent UTI). Nitrofurant 2021- No [id number] 100mg Take 1 Univers oin&Nit. 1-21 10-05 capsule by ity of [place] 00:00: 00:00 mouth [place] (MACROBID[place] 00 :00 needed Medical 100 mg (after Branch capsule intercours e to prevent UTI). Nitrofurant 2021- No [id number] 100mg Take 1 Univers oin&Nit. 1-21 10-05 capsule by ity of [facility] 00:00: 00:00 mouth as [place] (MACROBID) 00 :00 needed Medical 100 mg (after Branch capsule intercours e to prevent UTI). Nitrofurant 2021- No [id number] 100mg Take 1 Univers oin&Nit. 1-21 10-05 capsule by ity of [facility] 00:00: 00:00 mouth as [place] (MACROBID) 00 :00 needed Medical 100 mg (after Branch capsule intercours e to prevent UTI). Vital Signs Vital Name Observation Time Observation Value Comments Source Systolic blood 2022-01-21 13:13:00 122 mm[Hg] [facility] [place] [facility] Diastolic blood 2022-01-21 13:13:00 86 mm[Hg] Unive [facility] [place] [facility] Heart rate 2022-01-21 13:13:00 60 /min [facility] [place] [facility] Body weight 2022-01-21 13:13:00 77.111 kg [facility] [place] [facility] BMI 2022-01-21 13:13:00 26.63 kg/m2 [facility] [place] [facility] Oxygen saturation in 2022-01-21 13:13:00 99 /min University of Arterial blood by [facility] Pulse oximetry Branch Systolic blood 2021-10-29 19:21:00 121 mm[Hg] Univer sity of pressure [place] [facility] Diastolic blood 2021-10-29 19:21:00 88 mm[Hg] Unive rsity of [facility] [place] [facility] Heart rate 2021-10-29 19:21:00 93 /min [facility] [place] [facility] Body temperature 2021-10-29 19:21:00 37.11 [place] [facility] [place] [facility] Respiratory rate 2021-10-29 19:21:00 18 /min [facility] [place] [facility] Body height 2021-10-29 19:21:00 170.2 cm [facility] [place] [facility] Body weight 2021-10-29 19:21:00 75.921 kg [facility] [place] [facility] BMI 2021-10-29 19:21:00 26.21 kg/m2 [facility] [place] [facility] Oxygen saturation in 2021-10-29 19:21:00 98 /min University of Arterial blood by [facility] Pulse oximetry Branch Procedures Procedure Date / Time Performing Clinician Source Performed EXTERNAL PROVIDER 2022-08-07 05:01:00 [facility]igned[facility] Branch ASSIGNMENT OF BENEFITS 2022-07-15 13:11:53 Doctor Unassigned, No [facility] Name Medical Branch AUTHORIZATION FOR 2022-06-24 06:01:00 Doctor Unassigned, No [facility] RE[facility] OF PHI Name Medical Branch REFERRAL- 2022-01-22 05:01:00 Doctor Unassigned, No Univer [facility] REQUEST/RESPONSE Name Medical Branch XR CHEST 2 VW 2021-10-29 19:39:00 Sofiya Wallis o f [facility] [id number] 2019-11-27 00:00:00 [facility] [id number] 2019-11-27 00:00:[address] [facility] Encounters Start End Encounter Admission Attending Care Care Encounter Source Date/Time Date/Time Type Type Clinicians Facility Department ID 2022-08-06 [facility] [id number] Common 15:48:02 [id number] [facility] 2021-02-15 Emergency [facility] [id number] Univers 13:11:25 ity of [facility] 2019-11-27 Inpatient Rima, [facility] DAYS [id number] [facility] 09:30:00 Audencio 25 [facility] 2019-11-20 Inpatient CHANTAL Abarca, [facility] DAYS [id number] [facility] 10:00:00 Audencio [facility] 2022-08-07 2022-08-07 Orders Doctor ISAURA [id number] [place] [id number] 00:00:00 00:00:00 Only Unassigned, TARAH [id number] ity of [facility] [id number] [place] as [id number] [address] 2022-08-06 2022-08-06 Outpatient R DAMARIS JACOBO [facility] [id number] Univers 08:30:00 08:30:00 TORRI JACOBOSOL ity of [facility] 2022-07-17 2022-07-17 Telephone [facility] [id number] Univers 00:00:00 00:00:00 Daniel BROWN [id number] i ty of [place] [phone] [place] dic[place] [id number] [facility] 2022-07-16 2022-07-16 Telephone [facility] 1.2.840.114 [id number] Univers 00:00:00 00:00:00 Daniel BROWN 350.1.13.10 i ty of [place] [phone] Oh dical NAL 098 [facility] 2022-07-15 2022-07-15 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, Ang - Db [facility] 1.2.840.1 14 [id number] Univers 08:15:00 08:30:00 Visit Daniel Hernandes [facility] 350.1.13.10 ity of [facility] 4.2.7.2.686 Ravinder as RAZ?BLEA [phone] Oh dical KNEY [address] MEDICAL OFFICE [facility] 2022-07-15 2022-07-15 Outpatient R CECILIODANIEL [facility] [id number] Univers 08:15:00 08:15:00 [facility] 2022-07-15 Orders Doctor ISAURA 1.2.840.114 [id number] Univers 00:00:00 00:00:00 Only Unassigned, TARAH 350.1.13.10 ity of [place] [facility] 4.2.7.2.686 Ravinder as [phone] [address] 2022-07-14 2022-07-14 Patient [facility] 1.2.840.114 [id number] Univers 00:00:00 00:00:00 Secure Msg Daniel [facility] 350.1.13.10 ity of [facility] 4.2.7.2.[place] [phone] Oh dical NAL 098 [facility] 2022-07-14 2022-07-14 Telephone [facility] 1.2.840.114 101 [id number] Univers 00:00:00 00:00:00 Daniel STEPHANIE 350.1.13.10 i ty of [place] [phone] Oh dical NAL 134 [facility] 2022-06-24 2022-06-24 Orders Doctor ISAURA 1.2.840.114 [id number] Univers 00:00:00 00:00:00 Only Unassigned, TARAH 350.1.13.10 [place] of [place] [facility] 4.2.7.2.686 Ravinder as [phone] [address] 2022-05-25 2022-05-25 Patient Cici [facility] 1.2.133.842 [id number] Univers 00:00:00 00:00:00 Secure Msg iKki HERNANDES 350.1.13.10 ity of PEDIATRIC 4.2.7.2.[address] [facility] [phone] [facility] [address] 2022-05-22 2022-05-22 Telephone Cecilio [facility] 1.2.840.114 [id number] Univers 00:00:00 00:00:00 Daniel BROWN 350.1.13.10 i ty of [place] [phone] Oh dical NAL 8 [facility] 2022-05-20 2022-05-20 Nurse Nurse, Lkj [facility] 1.2.840.114 [id number] Univers 10:30:00 10:45:00 Visit Annie Cheung 350.1.13.1 0 ity of WOMEN'S 4.2.7.2.686 [facility] [phone] [address] 2022-05-20 2022-05-20 Outpatient R ANNIE CHEUNG [facility] B [id number] Univers 10:30:00 10:37:52 ANNIE CHEUNG [facility] 2022-05-19 2022-05-19 Outpatient R ANNIE CHEUNG [facility] B [id number] Univers 10:30:00 10:30:00 ANNIE CHEUNG roger [facility] 2022-01-22 2022-01-22 Orders Doctor ISAURA 1.2.840.114 [id number] Univers 00:00:00 00:00:00 Only Unassigned, TARAH 350.1.13.10 it[place] of [place] [facility] 4.2.7.2.686 Ravinder as [phone] [address] 2022-01-21 2022-01-21 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, Ang - Db [facility] 1.2.840.1 14 [id number] Univers 09:15:00 09:30:00 Visit Imtiaz Antony [facility] 350.1.13.10 ity of [place] 4.2.7.2.686 Ravinder as RAZ?BLEA [phone] Oh raina MCLEOD [address] MEDICAL OFFICE [facility] 2022-01-21 2022-01-21 Office Reji [facility] 1.2.840.114 [id number] Univers 08:30:00 08:34:04 Visit Imtiaz HEALTH 350.1.13.10 it y of [place] 4.2.7.2.686 Ravinder as RAZ?BLEA [phone] [facility] [address] [facility] OFFICE [facility] 2022-01-21 2022-01-21 Outpatient Sony ANTONY [facility] [id number] Univers 08:30:00 08:34:04 IMTIAZ kana [facility] 2022-01-21 2022-01-21 Outpatient Sony ANTONY [facility] [id number] Univers 08:30:00 08:30:00 [facility] 2021-12-25 2021-12-25 Nurse [facility] 1.2.840.114 [id number] Univers 13:00:00 13:15:00 Visit Daniel Hernandes 350.1.13.10 ity of [place] [phone] [address] 2021-12-25 2021-12-25 Outpatient Sony HERNANDES [facility] [id number] Univers 13:00:00 13:00:00 DANIEL roger [facility] 2021-11-04 2021-11-04 [facility] 1.2.840.114 [id number] Univers 00:00:00 00:00:00 Secure Msg Imtiaz HEALTH 350.1.13.10 ity of [place] 4.2.7.2.686 Ravinder as RAZ?BLEA [phone] Oh raina [facility] [address] MEDICAL OFFICE [facility] 2021-10-29 2021-10-29 [facility] 1.2.840.114 [id number] Univers 14:32:38 23:59:00 Encounter Sofiya HEALTH 350.1.13.10 ity of [place] 4.2.7.2.686 Ravinder as RAZ?BLEA [phone] Oh raina [address]LE[address] MEDICAL OFFICE [facility] 2021-10-29 2021-10-29 Outpatient R BIMAL [facility] [id number] Univers 14:32:38 23:59:00 SOFIYA [facility] 2021-10-29 2021-10-29 [facility] [id number] Univers 20:00:00 20:00:00 [facility] 2021-10-29 2021-10-29 [facility] 1..840.114 9 [id number] Univers 14:20:00 14:40:00 Care Keli Rodriguez [facility] 350.1.13.10 ity of [place] 4.2.7.2.686 Ravinder as RAZ?BLEA [phone] Oh raina MCLEOD [address] [facility] OFFICE [facility] 2021-10-29 2021-10-29 Telephone [facility] 1.2.194.976 [id number] Univers 00:00:00 00:00:00 Sofiya HEALTH 350.1.13.10 it y of [place] 4.2.7.2.686 Ravinder as RAZ?BLEA [phone] [facility] MC[facility]OD [address] [facility] OFFICE [facility] 2021-10-29 2021-10-29 Patient Reji [facility] 1.2.840.114 [id number] Univers 00:00:00 00:00:00 Secure [facility] HEALTH 350.1.13.10 ity of [place] 4.2.7.2.686 Ravinder as RAZ?BLEA [phone] Oh raina MCLEOD [address]44 [facility] OFFICE [facility] 2021-10-29 2021-10-29 Refill [facility] 1.2.840.114 [id number] Univers 00:00:00 00:00:00 Sofiya HEALTH 350.1.13.10 it y of [place] 4.2.7.2.686 Ravinder as RAZ?BLEA [phone] [facility] [address] [facility] OFFICE [facility] 2021-10-26 2021-10-26 Letter ISAURA Verma 1.2.840.114 [id number] Univers 00:00:00 00:00:00 (Out) Julianna RASCON 350.1.13.10 it y of HOSPITAL 4.2.7.2.[phone] [facility] [address] 2021-10-25 2021-10-25 Outpatient R EDITH [facility] [id number] Univers 15:00:00 15:17:43 MERCEDES ity o f [facility] 2021-10-25 2021-10-25 Laboratory Only, Ang Db Test [facility] 1.2.8 40.114 [id number] Univers 15:00:00 15:15:00 Only [facility] 350.1.13.10 ity of [place] 4.2.7.2.686 Ravinder as RAZ?BLEA [phone] [address] MEDICAL OFFICE BUILDING 2021-10-22 2021-10-22 Case [facility] 1.2.840.114 [id number] Univers 00:00:00 00:00:00 Management Annie HERNANDES 350.1.13.10 ity of [place] [phone] [place] [address] [address] 2021-10-21 2021-10-21 Patient [facility] 1.2.840.114 [id number] Univers 00:00:00 00:00:00 Secure Msg Arleenbrigette CECILIO 350.1.13.10 ity of PEDIATRIC 4.2.7.2.686 [facility] [phone] [address] 2021-10-17 2021-10-17 Outpatient R ANNIE CHEUNG [facility] B [id number] Univers 14:00:00 14:08:38 ANNIE CHEUNG [facility] 2021-10-17 2021-10-17 Outpatient R ANNIE CHEUNG [facility] B [id number] Univers 14:00:00 14:08:38 ANNIE CHEUNG [facility] 2021-10-17 2021-10-17 [facility] 1.2.840.114 [id number] Univers 14:00:00 14:08:38 Visit Annie HERNANDES 350.1.13.10 it y of [place] [phone] [facility] [address] 2021-10-17 2021-10-17 Patient Lucille [facility] 1.2.840.114 [id number] Univers 00:00:00 00:00:00 Secure Msg Lucero BROWN 350.1.13.10 ity of [place] [phone] Oh dical NAL 134 [facility] 2021-10-04 2021-10-04 Orders Doctor ISAURA 1.2.840.114 [id number] Univers 00:00:00 00:00:00 Only Unassigned, TARAH 350.1.13.10 [place] of [place] [facility] 4.2.7.2.[phone] [facility] [address] 2021-09-29 2021-09-29 Telemedici [facility] 1.2.840.114 [id number] Univers 16:00:00 16:30:00 ne Visit Daniel STEPHANIE 350.1.13.10 ity of [place] [phone] Oh dical NAL 098 [facility] 2021-09-29 2021-09-29 Outpatient [facility] [id number] Univers 16:00:00 16:00:00 DANIEL roger [facility] 2021-09-22 2021-09-22 Outpatient Sony HERNANDES [facility] [id number] Univers 15:30:00 15:30:00 DANIEL roger [facility] 2021-09-18 2021-09-18 Outpatient Sony SALAS [facility] [id number] Univers 11:33:59 23:59:00 MICK roger o f [facility] 2021-09-18 2021-09-18 Hospital ISACC SalasIT 1.2.840.114 [id number] Univers 11:30:00 23:59:00 Encounter Mick Rushing HEALTH 350.1.13.10 ity of CLINICS [place]2.[place].[address] [place] [phone] [facility] [address] 2021-09-11 2021-09-11 Telephone [facility] 1.2.901.845 [id number] Univers 00:00:00 00:00:00 Mick [place] 350.1.13.10 ity of [facility] 4.2.7.2.[place] [phone] [facility] NAL 9 [facility] 2021-09-08 2021-09-08 Outpatient Sony HERNANDES [facility] [id number] Univers 10:00:00 10:00:00 DANIEL roger [facility] 2021-07-25 2021-07-25 Telephone [facility] 1.2.956.011 [id number] Univers 00:00:00 00:00:00 [facility] 350.1.13.10 ity [place] [phone] [place] 302439 [facility] 2021-07-22 2021-07-22 Office [facility] 1.2.840.114 [id number] Univers 08:30:00 08:45:00 Visit [facility] 350.1.13.10 it y of [place] 4.2.7.2.686 Ravinder as RAZ?BLEA [phone] Oh raina [facility] [address] [facility] OFFICE [facility] 2021-07-22 2021-07-22 Outpatient Sony ANTONY [facility] [id number] Univers 08:30:00 08:30:00 IMTIAZ roger [facility] 2021-07-22 2021-07-22 Outpatient Sony ANTONY [facility] [id number] Univers 08:30:00 08:30:00 IMTIAZ roger [facility] 2021-07-22 2021-07-22 Outpatient Sony ANTONY [facility] [id number] Univers 08:30:00 08:30:00 IMTIAZ roger [facility] 2021-07-11 2021-07-11 Outpatient Sony SALAS [facility] [id number] Univers 15:00:00 15:00:00 MICK cornelius [facility] 2021-07-11 2021-07-11 Outpatient R JOHN, [facility] [id number] Univers 14:00:00 14:03:00 MICK cornelius [facility] 2021-07-09 2021-07-09 Laboratory Only, Adc Test [facility] 1.2.840. 114 [id number] Univers 09:45:00 10:00:00 Only Sandor Senior 350.1.13.10 ity of [place].2.[place] [phone] [facility] [address] 2021-07-09 2021-07-09 Outpatient R PARRISH, [facility] [id number] Univers 09:45:00 09:45:00 SANDOR roger [facility] 2021-07-01 2021-07-01 Outpatient R CLIFTON, [facility] [id number] Univers 11:20:00 11:33:43 KELI roger [facility] 2021-06-26 2021-06-26 Outpatient R JOHN, [facility] [id number] Univers 15:00:00 15:00:00 MICK cornelius [facility] 2021-06-25 2021-06-25 Telephone [facility] 1.2.309.203 [id number] Univers 00:00:00 00:00:00 Mick BROWN 350.1.13.10 ity [facility] 4.2.7.2.[place] [facility] [phone] Oh dical NAL [address] [facility] 2021-06-19 2021-06-19 Orders Doctor ISAURA 1.2.840.114 [id number] Univers 00:00:00 00:00:00 Only Unassigned, TARAH 350.1.13.10 ity of [facility] 4.2.7.2.[phone] [facility] [address] 2021-06-09 2021-06-09 Outpatient [facility] [id number] Univers 14:20:00 15:30:13 MICK cornelius [facility] 2021-06-09 2021-06-09 Outpatient [facility] [id number] Univers 14:20:00 15:30:13 MICK ity o f [facility] 2021-06-09 2021-06-09 Office [facility] 1.2.840.114 [id number] Univers 14:20:00 15:30:13 Visit Mick [facility] 350.1.13.10 ity of [facility] 4.2.7.2.686 [place] [phone] Oh dical NAL 059 [facility] 2021-06-09 2021-06-09 Outpatient [facility] [id number] Univers 14:20:00 15:30:13 MICK wilsony o f [facility] 2021-06-09 2021-06-09 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, Azam - Jimmy [facility] 1.2.840.1 14 [id number] Univers 12:15:00 12:30:00 Visit Reji [facility] 350.1.13.10 ity of [place] 4.2.7.2.686 Ravinder as RAZ?BLEA [phone] [facility] [address] [facility] OFFICE [facility] 2021-06-09 2021-06-09 Office [facility] 1.2.840.114 [id number] Univers 12:00:00 12:15:00 [facility] 350.1.13.10 it y of [facility] 4.2.7.2.686 Ravinder as RAZ?BLEA [phone] [facility] [address] [facility] OFFICE [facility] 2021-06-09 2021-06-09 Outpatient R ANTONY [facility] [id number] Univers 12:00:00 12:00:00 IMTIAZ itroger [facility] 2021-06-09 2021-06-09 Office [facility] 1.2.840.114 [id number] Univers 09:30:00 10:24:19 Visit Daniel BROWN 350.1.13.10 i ty of [facility] 4.2.7.2.[place] [phone] Oh dical NAL 098 [facility] 2021-06-06 2021-06-06 [facility] Altagracia Kahn [facility] 1.2.840.114 [id number] Univers 16:50:43 23:59:00 Encounter STEPHANIE 350.1.13.10 ity of [facility] 4.2.7.2.686 [facility] [phone] [facility] [address] 2021-06-06 2021-06-06 Outpatient R [facility] [id number] Univers 16:42:49 16:49:00 DANIEL kana [facility] 2021-06-06 2021-06-06 Hospital [facility] 1.2.176.930 [id number] Univers 16:42:49 16:49:00 Encounter Daniel BROWN 350.1.13.10 ity of [place] 4.2.7.2.686 [facility] [phone] [facility] [address] 2021-06-06 2021-06-06 Orders Doctor ISAURA 1.2.840.114 [id number] Univers 00:00:00 00:00:00 Only Unassigned, TARAH 350.1.13.10 ity of [place] [facility] 4.2.7.2.[phone] [facility] [address] 2021-05-30 2021-05-30 Outpatient R [facility] [id number] Univers 10:00:00 13:39:53 DANIEL katieroger [facility] 2021-05-30 2021-05-30 Office [facility] 1.2.840.114 [id number] Univers 10:00:00 10:30:00 Visit Daniel BROWN 350.1.13.10 i ty of [place] 4.2.7.2.686 [facility] [phone] Oh dical NAL 098 [facility] 2021-05-30 2021-05-30 Outpatient R [facility] [id number] Univers 10:00:00 10:00:00 DANIEL roger [facility] 2021-05-27 2021-05-27 Patient [facility] 1.2.840.114 [id number] Univers 00:00:00 00:00:00 Secure [facility] 350.1.13.10 ity of [place] 4.2.7.2.686 Ravinder as RAZ?BLEA [phone] [facility] [address] [facility] OFFICE [facility] 2021-05-12 2021-05-12 Case [facility] 1.2.840.114 [id number] Univers 00:00:00 00:00:00 Management Daniel HEALTH 350.1.13.10 it[place] of [place].2.686 [place] AND[place]W [phone] [facility] [address] OFFICE BUILDING 2021-05-12 2021-05-12 Telephone [facility] 1.2.840.114 [id number] Univers 00:00:00 00:00:00 Danieltim BROWN 350.1.13.10 i ty of [facility] 4.2.7.2.686 [place] [phone] [facility] 134 [facility] 2021-05-09 2021-05-09 Outpatient R [facility] [id number] Univers 13:30:00 14:42:24 DANIEL ity of [facility] 2021-05-09 2021-05-09 Office [facility] 1.2.840.114 [id number] Univers 13:30:00 14:42:24 Visit Danieltim BROWN 350.1.13.10 i ty of [facility] 4.2.7.2.686 [place] [phone] [address] 2021-05-09 2021-05-09 Outpatient R [facility] [id number] Univers 13:30:00 14:42:24 DANIEL ity of [facility] 2021-05-09 2021-05-09 Refill Doctor [facility] 1.2.840.114 [id number] Univers 00:00:00 00:00:00 Unassigned, HEALTH 350.1.13.10 [place] of [place] ARIANEABHINAV 4.2.7.2.686 Ravinder as RAZ?BLEA [phone] [address] OFFICE [facility] 2021-05-09 2021-05-09 Orders Doctor ISAURA 1.2.840.114 [id number] Univers 00:00:00 00:00:00 Only Unassigned, TARAH 350.1.13.10 ity of [facility] 4.2.7.2.686 Ravinder as [phone] [address] 2021-04-24 2021-04-24 Outpatient R ESTHER [facility] [id number] Univers 14:45:00 16:43:04 [facility] ity [facility] 2021-04-24 2021-04-24 Office [facility] 1.2.840.114 [id number] Univers 14:45:00 16:43:04 Visit [facility] 350.1.13.10 i ty of [place]2.7.2.[place] [phone] Oh dical [address] 2021-04-24 2021-04-24 Outpatient [facility] [id number] Univers 14:45:00 14:45:00 [facility] 2021-04-23 2021-04-23 Office [facility] 1.2.840.114 [id number] Univers 08:45:00 09:00:00 Visit [facility] 350.1.13.10 it y of [place] 4.2.7.2.686 Ravinder as RAZ?BLEA [phone] [address] 2021-04-23 2021-04-23 Outpatient [facility] [id number] Univers 08:45:00 08:45:00 [facility] 2021-04-23 2021-04-23 Outpatient [facility] [id number] Univers 08:45:00 08:45:00 [facility] 2021-04-22 2021-04-22 Refill [facility] 1.2.840.114 [id number] Univers 00:00:00 00:00:00 [facility] 350.1.13.10 it y of [place] 4.2.7.2.686 Ravinder as RAZ?BLEA [phone] Oh dical [address] OFFICE [facility] 2021-04-22 2021-04-22 Orders Doctor DELAROSA 1.2.840.114 [id number] Univers 00:00:00 00:00:00 Only Unassigned, TARAH 350.1.13.10 ity of [place] [facility] 4.2.7.2.686 Ravinder as [phone] [address] 2021-04-13 2021-04-13 Urgent Feliberto [facility] 1.2.962.863 [id number] Univers 15:00:00 15:20:00 Care Cornelius HEALTH 350.1.13.10 it y of [facility] 4.2.7.2.686 Ravinder as RAZ?BLEA [phone] [address] MEDICAL OFFICE BUILDING 2021-04-13 2021-04-13 Outpatient R FELIBERTO [facility] [id number] Univers 15:00:00 15:00:00 CORNELIUS ity of [facility] 2021-04-03 2021-04-03 Refcristal [facility] 1.2.840.114 [id number] Univers 00:00:00 00:00:00 Imtiaz HEALTH 350.1.13.10 it y of [place] 4.2.7.2.686 Ravinder as RAZ?BLEA [phone] [facility] [address] MEDICAL OFFICE [facility] 2021-03-31 2021-03-31 Patient [facility] 1.2.840.114 [id number] Univers 00:00:00 00:00:00 Secure Msg Imtiaz HEALTH 350.1.13.10 ity of [place] 4.2.7.2.686 Ravinder as RAZ?BLEA [phone] [facility] [address] MEDICAL OFFICE [facility] 2021-03-27 2021-03-27 Refcristal Wallis [facility] 1.2.840.114 [id number] Univers 00:00:00 00:00:00 Sofiya HEALTH 350.1.13.10 it y of [facility] 4.2.7.2.686 Ravinder as RAZ?BLEA [phone] [facility] [address] MEDICAL OFFICE BUILDING 2021-03-27 2021-03-27 Patient Doctor [facility] 1.2.840.114 [id number] Univers 00:00:00 00:00:00 Secure Msg Unassigned, HEALTH 350.1.13.10 it[place] of [place] STEPHANIE 4.2.7.2.686 Ravinder as RAZ?BLEA [phone] [address] MEDICAL OFFICE [facility] 2021-03-20 2021-03-20 Patient Reji [facility] 1.2.840.114 [id number] Univers 00:00:00 00:00:00 Secure Msg [facility] 350.1.13.10 ity of [facility] 4.2.7.2.686 Ravinder as RAZ?BLEA [phone] [address] MEDICAL OFFICE [facility] 2021-03-12 2021-03-12 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, Ang - Db [facility] 1.2.840.1 14 [id number] Univers 10:55:33 11:10:33 Visit Imtiaz Antony [facility] [id number] ity of [place] 4.2.7.2.686 Ravinder as RAZ?BLEA [phone] [facility] [address] [facility] OFFICE [facility] 2021-03-12 2021-03-12 Outpatient R REJI [facility] [id number] Univers 10:15:00 10:54:31 IMTIAZ roger [facility] 2021-03-12 2021-03-12 [facility] 1.2.840.114 [id number] Univers 10:00:20 10:15:20 Visit Imtiaz [facility] 350.1.13.10 it y of [facility] 4.2.7.2.686 Ravinder as RAZ?BLEA [phone] [address] OFFICE [facility] 2021-03-12 2021-03-12 Outpatient R REJI [facility] [id number] Univers 10:15:00 10:15:00 IMTIAZ kana [facility] 2021-03-05 2021-03-05 Outpatient Sony SAUCEDO [facility] [id number] Univers 17:00:00 17:00:37 MERCEDES duarte [facility] 2021-03-05 2021-03-05 Sofiya Breaux [facility] 1.2.840.114 [id number] Univers 16:37:54 17:00:37 [facility] [id number] ity of [place] 4.2.7.2.686 Ravinder as RAZ?BLEA [phone] Oh raina [address] OFFICE BUILDING 2021-02-18 2021-02-18 Patient Altagracia Kahn 1.2.840.114 [id number] Univers 00:00:00 00:00:00 Secure Msg [place] [id number] ity [place] [phone] [address] 2020-12-24 2020-12-24 Patient Altagracia Kahn 1.2.840.114 [id number] Univers 00:00:00 00:00:00 Secure Msg [place] [id number] ity [place] [phone] [address] 2020-12-23 2020-12-23 Case Altagracia Kahn 1.2.840.114 [id number] Univers 00:00:00 00:00:00 Management Cecilio [id number] ity of Pediatric 4.2.7.2.686 Te [facility] [phone] [address] 2020-12-22 2020-12-22 Telephone Altagracia Kahn 1.2.840.114 [id number] Univers 00:00:00 00:00:00 [place] 350.1.13.10 i [place] [phone] Oh dic[address] 2020-12-22 2020-12-22 Telephone Altagracia Kahn 1.2.840.114 [id number] Univers 00:00:00 00:00:00 [place] 350.1.13.10 [place] [phone] [place] [address] 2020-12-20 2020-12-20 Office Altagracia Kahn 1.2.840.114 [id number] Univers 09:24:36 10:23:27 Visit [place] 350.1.13.10 [place] [phone] [address] 2020-12-20 2020-12-20 Office Altagracia Kahn 1.2.840.114 [id number] [facility] 09:24:36 10:23:27 Visit [place] 350.1.13.10 [place] [phone] [address] 2020-12-20 2020-12-20 [id number] Univers 09:30:00 09:30:00 ity of [facility] 2020-12-19 2020-12-19 Patient Altagracia Kahn 1.2.840.114 [id number] Univers 00:00:00 00:00:00 Secure Msg [place] 350.1.13.10 [place] [phone] [address] 2020-12-19 2020-12-19 Patient Altagracia Kahn 1.2.840.114 [id number] Univers 00:00:00 00:00:00 Secure Msg [place] 350.1.13.10 [place] [phone] [address] 2020-12-18 2020-12-18 Telephone Altagracia Kahn 1.2.840.11 4 [id number] Univers 00:00:00 00:00:00 [place] 350.1.13.10 it [place].686 [place] [phone] [address] 2020-12-18 2020-12-18 Telephone Altagracia Kahn 1.2.840.11 [id number] Univers 00:00:00 00:00:00 [place] 350.1.13.10 [place] [phone] [address] 2020-12-17 2020-12-17 Telephone Altagracia Kahn 1.2.840.11 [id number] Univers 00:00:00 00:00:00 [place] 350.1.13.10 it [place].2.[place] [id number] [address] 2020-12-17 2020-12-17 Telephone Altagracia Kahn [place] 1.2.840.11 [id number] Univers 00:00:00 00:00:00 [place] 350.1.13.10 it [place]2.[place] [phone] [address] 2020-11-27 2020-11-27 Orders Doctor ISAURA 1.2.840.114 [id number] Univers 00:00:00 00:00:00 Only Unassigned, TARAH 350.1.13.10 ity of [place] [facility] 4.2.7.2.686 Rav[place] as [phone] [address] 2020-07-16 2020-07-16 Outpatient R ALTAGRACIA KAHN [facility] [id number] Univers 11:00:00 11:00:00 ity [facility] 2020-07-04 2020-07-04 Screw Machine Tender Michelle, [facility] 1.2.840.114 [id number] 14:03:01 14:18:01 Visit Lab Main [place] 350.1.13.10 [place] 4.2.7.2.686 Professio [phone] [address] 2020-07-04 2020-07-04 Screw Machine Tender Michelle [facility] Lab Main [facility] 1.2.8 40.114 [id number] Univers 14:03:01 14:18:01 Visit Altagracia Kahn 350.1.13.10 it[place] [phone] Oh dical [address] 2020-07-04 2020-07-04 Outpatient R ALTAGRACIA KAHN [facility] [id number] Univers 09:30:00 09:30:00 ity [facility] 2020-06-22 2020-06-22 Outpatient R ALTAGRACIA KAHN [facility] [id number] Univers 09:30:00 09:30:00 ity [facility] 2020-06-19 2020-06-19 [facility] Altagracia Kahn [facility] 1.2.840.114 [id number] Univers 13:11:58 23:59:00 Encounter [place] 350.1.13.10 ity [facility] 4.2.7.[address] [place] [phone] [facility] [address] 2020-06-19 2020-06-19 [facility] Altagracia Kahn [facility] 1.2.840.114 [id number] 13:11:58 23:59:00 Encounter [place] 350.1.13.[address] [place] [address] [place] [address] [phone] 80 2020-06-19 2020-06-19 Outpatient R ALTAGRACIA KAHN [facility] [id number] [facility]:00[facility] 2020-06-14 2020-06-14 Outpatient R ALTAGRACIA KAHN [facility] 817 [id number] Univers 10:30:00 10[facility] 2020-04-13 2020-04-13 Emergency [facility] 1.2.941.170 [id number] Univers 17:11:00 21:01:00 Altagracia R [place] 350.1.13.10 i ty of [place] 4.2.7.2.686 [facility] [phone] [address] 2020-04-13 2020-04-13 Emergency [facility] 1.2.319.168 [id number] 17:11:00 21:01:00 Altagracia R [place] 350.1.13.10 [place] [address] [place] [address] [phone] [facility] 2020-03-23 2020-03-23 Laboratory Lab, Adc Fam Pob I [facility] 1.2. 840.114 [id number] Univers 10:01:52 10:21:52 Only Unknown, Attending Health 350.1.13.10 ity of [place] 4.2.7.2.68 Ravinder as Professio [phone] Me dical nal [address] 2020-03-23 2020-03-23 Laboratory Lab, [facility] 1.2.840.114 [id number] 10:01:52 10:21:52 Only Fam Pob I Health 350.1.13.10 [place] 4.2.7.2.686 Professio [phone] nal [address] 2020-03-23 2020-03-23 Outpatient R UNKNOWN, [facility] [id number] Univers 10:00:00 10:00:00 ATTENDING ity [facility] Results Test Description Test Time Test Comments Results Result Comments Source COVID 19 Asymptomatic IH AG 2019-11-29 13:40:00 Test Item Value Reference Range Interpretation Comme nts COVID 19 Asymptomatic IH AG (test code = COVNONPUIAG) NEGATIVE [id number] 13:21:00 RUN DATE: 11/28/19 [facility] PAGE 1 RUN TIME: 1321 Specimen Inquiry RUN USER: INTERFACE ASHLEY ENT: EMERALD ZHANG LOC: [place] U #: [id number] AGE/SX: 29/F ROOM: [facility] RE11/27/19REG DR: Anastacio Abarca MD : 91 BED: A DIS: STATUS: ADM IN TLOC: SPEC #: [id number] RECD: 11/27/19 STATUS: ESTHELA ARNDT #: [id number] SCARLET: 11/27/19- SUBM DR: Anastacio Abarca MD ENTERED: 11/27/19 SP TYPE: STOMACH OTHR DR: No Primary or Family Physician Uday Ferraro MDORDERED: GROSS COPIES TO: No Primary or Family Physician Anastacio Abarca MD [address] [place] [address] Uday Ferraro MD [address] [address] [place] [address] PROCEDURES: GROSS (11/28/19) TISSUES: STOMACH, NOS - PORTION OF STOMACH CLINICAL HISTORY COLLECTION DATE: 11/27/19 [facility] OBESITY FINAL DIAGNOSIS Portion of stomach, laparoscopic sleeve gastrectomy: PORTION OF STOMACH, NO PATHOLOGIC ALTERATION DMW/sm D 02229 MACROSCOPIC The specimen is received in formalin, labeled with the patient's name, and identified as "portion of stomach". It consists of sleeve gastrectomy specimen measuring 17.0 x 4.0 cm with a wall thickness of up to 0.6 cm. The serosal surface is pink with congested vessels. The mucosal edge is stapled closed. A CONTINUED ON NEXT PAGE RUN DATE: 11/28/19 [employer] PAGE2 RUN TIME: 1321 Specimen Inquiry RUN USER: INTERFACE SPEC #: [id number] PATIENT: EMERALD ZHANG #[id number] (Continued) MACROSCOPIC (Continued) small amount of unremarkable fatty tissue is attached to the opposite surface. The mucosal surface is dark pink with unremarkable folds. No areas of ulceration, nodules or polyps are identified. Case Repairer tissue is submitted in a single cassette. GROSS PERFORMED AT [facility] [address] [place] [address] 08289 (p)[phone] MICROSCOPIC All of the stains, including any controls performed, stain appropriately. MICROSCOPIC PERFORMED AT [facility] [address] [place] [address] 77504 (p)[phone] PERFORMING SITE Diagnosis performed at: [facility], [place] [id number] SignedSIGNATURE ON FILE Angela Chester MD 11/28/19 1321 END OF REPORT TSH REFLEX TO [id number] 07:36:00 Test Item Value Reference Range Interpretation Comments TSH REFLEX TO FT4 (test code = 1.0 0.4-5.5 N TSHREFLEX) BASIC METABOLIC [id number] 07:33:00 Test Item Value Reference Range Interpretation [...] GFR) formula.Chronic kidney disease is defined as ei er kidney damageor GFR <60 mL/min/1.73 m2 for >3 months. CREATININE (test code 0.70 mg/dL 0.55-1.02 N Note change in = CREAT) reference range due to change in reagent. 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 COMPREHENSIVE METABOLIC [id number] 14:08:00 Test Item Value Reference Range Interpretation [...] due ALKP) to change in reagent. PROTHROMBIN [id number] 14:05:00 Test Item Value Reference Range Interpretation [...] ion INR range Pulmonary embol ism treatment (2.0-3.0)Venous thrombosis treatmentVenous thrombosis prophylaxis (hi gh risk surgery)Prevent ion of systemic emboli sm from: Acute myocardial infa rction Valvular heart disease Atrial fibrillation Mechanical pros thetic heart valves (2.5-3.5) IS PATIENT ON ANTICOAGULANTS? NTHROMBOPLASTIN TIME [id number] 14:05:00 Test Item Value Reference Range Interpretation Comments THROMBOPLASTIN TIME PARTIAL 30.3 seconds 23.0-37.0 N (test code = PTT) IS PATIENT ON ANTICOAGULANTS? NCOMPREHENSIVE METABOLIC [id number] 14:01:00 Test Item Value Reference Range Interpretation [...] IUnit/L 45-117 code = ALKP) HCG SERUM [id number] 13:59:00 Test Item Value Reference Range Interpretation Comments HCG SERUM QUAL (test NEGATIVE NEGATIVE This HC GQL test is NOT code = HCGQL) applicable for MALE patients.Check with nurse about probable order error.If Tumor Marker Test needed, nu rse should order test "HCG TU"(Test #550.33587)---- - CBC W/AUTO [id number] 13:57:00 Test Item Value Reference Range Interpretation [...] code = BA#) K/mm3 0.0-0.2 CBC W/AUTO [id number] 13:57:00 Test Item Value Reference Range Interpretation [...] = 0.00 K/mm3 0.0-0.1 N NRBC#) URINALYSIS [id number] 13:54:00 Test Item Value Reference Range Interpretation [...] FEW #/LPF FEW Urine Source? Clean CatchURINALYSIS [id number] 13:53:00 Test Item Value Reference Range Interpretation [...] code = CHOLHDL) CHOL/H DL RATIOS: Risk Male Female1/2 AVERAGE 3.43 3.27AVERAG E 4.97 4.442X AVERAGE 9.55 7.053X AVERAGE 23.39 11.04 REFERENCE VALUE IS RELATED TO R ISK LEVELS ASRECOMM ENDED BY THE NAT. SALCEDO RT, LUNG, AND BLOOD INST. HDL CHOLESTEROL (test 33 mg/dL 40-60 L code = HDL) LIPOPROTEIN LDL (test 117 mg/dL 100-129 N RN PER IVELISSE, CONTACT code = LDL) PHYSICIAN IMMED IATELY IF THIS IS A ST ROKE, AMI OR CAROTID STENOSIS PATIEN T WHEN THE LDL >100 ([address] OCCURENCE, THIS ADMISSION)===== ======= ======= ======= ===Reference In terval: mg/dL mmol/L--------- ------- ------- ------O ptimal <100 <2.6Near/above optimal 100-129 2.6-3.3Borderli ne High 130-159 3.4-4.1 High 160-189 4.1-4.9 Very High >=190 >=4.9========= This LDL result is a direct measurement.=== ====== HEPATIC FUNCTION [id number] 07:15:00 Test Item Value Reference Range Interpretation [...] ALKP) to change in reagent. HCG SERUM [id number] 07:15:00 Test Item Value Reference Range Interpretation Comments HCG SERUM QUAL (test NEGATIVE NEGATIVE This HC GQL test is NOT code = HCGQL) applicable for MALE patients.Check with nurse about probable order error.If Tumor Marker Test needed, nu rse should order test "HCG TU"(Test #550.62608)---- - VITAMIN [id number] 07:15:00 Test Item Value Reference Range Interpretation Comments VITAMIN B12 (test code = VITB12) 690 pg/mL 193-986 N FOLIC [id number] 07:15:00 Test Item Value Reference Range Interpretation Comments FOLIC ACID (test code = FOL) 6.8 ng/mL 3.10-17.50 N THYROID PROFILE [id number] 07:15:00 Test Item Value Reference Range Interpretation Comments T3 UPTAKE (test code = 38.0 % 30.0-40.0 N T3UP) T4 (THYROXINE) (test 9.5 ug/dL 4.5-13.9 N code = T4) T7 (FREE THYROXINE 3.61 FTI 1.3-5.1 N INDEX) (test code = T7) THYROID STIMULATING 1.990 uIU/mL 0.36-3.74 N TSH REFE RENCE HORMONE (test code = RANGES: EUTHYROID: TSH) 0.35 - 4.3 mIU/ mL HYPO : > 5.5 mI U/mL HYPER : < 0.35 mIU/mL VIT B1 WHOLE [id number] 07:15:00 Test Item Value Reference Range Interpretation Comments VIT B1 WHOLE BLOOD 146.9 nmol/L 66.5-200.0 Performed At: (test code = [facility] [id number]) [place], [place] [id number] aide Pastrana MD Ph:[phone] AB HIV 1 14:26:00 Test Item Value Reference Range Interpretation Comments AB HIV 1 2 (test Nonreactive NonReactive It is recog nized that code = [id number]) currently av ailable assays for thed etection of antibodies t [...] code = CHOLHDL) CHOL/H DL RATIOS: Risk Male Female1/2 AVERAGE 3.43 3.27AVERAG E 4.97 4.442X AVERAGE 9.55 7.053X AVERAGE 23.39 11.04 REFERENCE VALUE IS RELATED TO R ISK LEVELS ASRECOMM ENDED BY THE MERON. HEA RT, LUNG, AND BLOOD INST. HDL CHOLESTEROL (test 33 mg/dL 40-60 L code = HDL) LIPOPROTEIN LDL (test 117 mg/dL 100-129 N RN PER IVELISSE, CONTACT code = LDL) PHYSICIAN IMMED IATELY IF THIS IS A ST ROKE, AMI OR CAROTID STENOSIS PATIEN T WHEN THE LDL >100 ([address] OCCURENCE, THIS ADMISSION)===== ======= ======= ======= ===Reference In terval: mg/dL mmol/L--------- ------- ------- ------O ptimal <100 <2.6Near/above optimal 100-129 2.6-3.3Borderli ne High 130-159 3.4-4.1 High 160-189 4.1-4.9 Very High >=190 >=4.9========= This LDL result is a direct measurement.=== ====== HEPATIC FUNCTION [id number] 13:04:00 Test Item Value Reference Range Interpretation [...] ALKP) to change in reagent. HCG SERUM [id number] 13:04:00 Test Item Value Reference Range Interpretation Comments HCG SERUM QUAL (test NEGATIVE NEGATIVE This HC GQL test is NOT code = HCGQL) applicable for MALE patients.Check with nurse about probable order error.If Tumor Marker Test needed, nu rse should order test "HCG TU"(Test #550.95690)---- - VITAMIN [id number] 13:04:00 Test Item Value Reference Range Interpretation Comments VITAMIN B12 (test code = VITB12) 690 pg/mL 193-986 N FOLIC [id number] 13:04:00 Test Item Value Reference Range Interpretation Comments FOLIC ACID (test code = FOL) 6.8 ng/mL 3.10-17.50 N THYROID PROFILE [id number] 13:04:00 Test Item Value Reference Range Interpretation Comments T3 UPTAKE (test code = 38.0 % 30.0-40.0 N T3UP) T4 (THYROXINE) (test 9.5 ug/dL 4.5-13.9 N code = T4) T7 (FREE THYROXINE 3.61 FTI 1.3-5.1 N INDEX) (test code = T7) THYROID STIMULATING 1.990 uIU/mL 0.36-3.74 N TSH REFE RENCE HORMONE (test code = RANGES: EUTHYROID: TSH) 0.35 - 4.3 mIU/ mL HYPO : > 5.5 mI U/mL HYPER : < 0.35 mIU/mL VIT B1 WHOLE [id number] 13:04:00 Test Item Value Reference Range Interpretation Comments VIT B1 WHOLE BLOOD (test code = nmol/L 87-280 [id number]) URINALYSIS [id number] 12:59:00 Test Item Value Reference Range Interpretation [...] code = CHOLHDL) CHOL/H DL RATIOS: Risk Male Female1/2 AVERAGE 3.43 3.27AVERA GE 4.97 4.442X AVERAGE 9.55 7.053X AVERAGE 23.39 11.04 REFERENCE VALUE IS RELATED TO R ISK LEVELS ASRECOMM ENDED BY THE MERON. JUANAA RT, LUNG, AND BLOOD INST. HDL CHOLESTEROL (test 33 mg/dL 40-60 L code = HDL) LIPOPROTEIN LDL (test 117 mg/dL 100-129 N RN PER IVELISSE, CONTACT code = LDL) PHYSICIAN IMMED IATELY IF THIS IS A ST ROKE, AMI OR CAROTID STENOSIS PATIEN T WHEN THE LDL >100 ([address] OCCURENCE, THIS ADMISSION)===== ======= ======= ======= ===Reference In terval: mg/dL mmol/L--------- ------- ------- ------O ptimal <100 <2.6Near/above optimal 100-129 2.6-3.3Borderli ne High 130-159 3.4-4.1 High 160-189 4.1-4. 9Very High >=190 >=4.9========= This LDL result is a direct measurement.=== ====== HEPATIC FUNCTION [id number] 12:55:00 Test Item Value Reference Range Interpretation [...] ALKP) to change in reagent. HCG SERUM [id number] 12:55:00 Test Item Value Reference Range Interpretation Comments HCG SERUM QUAL (test code = HCGQL) NEGATIVE VITAMIN [id number] 12:55:00 Test Item Value Reference Range Interpretation Comments VITAMIN B12 (test code = VITB12) 690 pg/mL 193-986 N FOLIC [id number] 12:55:00 Test Item Value Reference Range Interpretation Comments FOLIC ACID (test code = FOL) 6.8 ng/mL 3.10-17.50 N THYROID PROFILE [id number] 12:55:00 Test Item Value Reference Range Interpretation Comments T3 UPTAKE (test code = 38.0 % 30.0-40.0 N T3UP) T4 (THYROXINE) (test 9.5 ug/dL 4.5-13.9 N code = T4) T7 (FREE THYROXINE 3.61 FTI 1.3-5.1 N INDEX) (test code = T7) THYROID STIMULATING 1.990 uIU/mL 0.36-3.74 N TSH REFE RENCE HORMONE (test code = RANGES: EUTHYROID: TSH) 0.35 - 4.3 mIU/ mL HYPO : > 5.5 mI U/mL HYPER : < 0.35 mIU/mL VIT B1 WHOLE [id number] 12:55:00 Test Item Value Reference Range Interpretation Comments VIT B1 WHOLE BLOOD (test code = nmol/L 87-280 HIEE1XK) URINALYSIS [id number] 12:53:00 Test Item Value Reference Range Interpretation [...] NONE BACU) Urine Source? Clean CatchCOMPREHENSIVE METABOLIC [id number] 12:29:00 Test Item Value Reference Range Interpretation [...] ALKP) to change in reagent. COMPREHENSIVE METABOLIC [id number] 12:23:00 Test Item Value Reference Range Interpretation [...] TOTAL (test IUnit/L 45-117 code = ALKP) [id number] 12:10:00 Test Item Value Reference Range Interpretation Comments GLYCOSYLATED HEMOGLOBIN 5.2 % HbA1 CHRIS ODELL DIAGNOSIS: (HA1C) (test code = HbA1C GLYHGB) (%) ----- ----- Diab etic >6.4Prediabetes 5.7 - 6.4Normal <5. 7 ESTIMATED AVERAGE 103 MG/DL GLUCOSE (test code = EAG) PROTHROMBIN [id number] 12:09:00 Test Item Value Reference Range Interpretation [...] ion INR range Pulmonary embol ism treatment (2.0-3.0)Venous thrombosis treatmentVenous thrombosis prophylaxis (hi gh risk surgery)Prevent ion of systemic emboli sm from: Acute myocardial infa rction Valvular heart disease Atrial fibrillation Mechanical pros thetic heart valves (2.5-3.5) IS PATIENT ON ANTICOAGULANTS? NTHROMBOPLASTIN TIME [id number] 12:09:00 Test Item Value Reference Range Interpretation Comments THROMBOPLASTIN TIME PARTIAL 31.1 seconds 23.0-37.0 N (test code = PTT) IS PATIENT ON ANTICOAGULANTS? NAB HELICOBACTER [id number] 11:59:00 Test Item Value Reference Range Interpretation Comments AB HELICOBACTER IGG (test code = NEGATIVE NEGATIVE HELIGAB) COVID 19 Asymptomatic IH [id number] 11:57:00 Test Item Value Reference Range Interpretation Comments COVID 19 Asymptomatic IH AG (test NEGATIVE code = COVNONPUIAG) CBC W/AUTO [id number] 11:57:00 Test Item Value Reference Range Interpretation [...] NO = MDIFF) - XR CHEST 2 [id number] 11:13:00 FAX: Anastacio Malloy MD [phone] [place]: O St: PRE Name: EMERALD ZHANG [employer] : 1990 Age/S:29/F [address] Unit #: [id number] Loc: [facility] [place], [place] [address] Phys: Anastacio Abarca MD Acct: [id number] Dis Date: Status: PRE SDC PHONE #: [phone] Exam Date: 11/13/2019 1055 FAX #: [phone] Reason: PRE OP EXAMS: CPT CODE: [id number] XR CHEST 2 V 80850 REASON FOR EXAM: PRE OP Exam Order Date: 11/13/2019 10:47 AM Ordering M.Chu: Anastacio Abarca MD PROCEDURE: - XR CHEST 2 V COMPARISON: None FINDINGS: The lungs are clear. There is no pleural effusion or pneumothorax. Pulmonary vascularity is within normal limits. Cardiomediastinal silhouette is normal in size for technique. The media stinal contours are within normal limits. Musculoskeletal structures are within normal limits. The visualized upper abdomen is within normal limits. IMPRESSION: No acute cardiopulmonary process. Location: [facility] at 1113 Reported and signed by: James Rincon MD CC: Anastacio Abarca MD Technologist: Altagracia Blanton RT(R) Trnscrd Date/Time/By: 11/13/2019 (1113) : By: [email or web address] Orig Print D/T: S: 11/13/2019 (1116) PAGE 1 Signed Report
[2022-08-11] MEDS ORDERED: ONDANSETRON 4 MG/2 ML VIAL ONE (08:10)
[2022-08-11] MEDS ORDERED: NA CHLORIDE 0.9% 1,000 ML ONE (08:10)
[2022-08-11] MEDS ORDERED: KETOROLAC 30 MG/ML INJ ONE (08:10)
[2022-08-11] MEDS ORDERED: MORPHINE 4 MG/ML SYR ONE (08:10)
[2022-08-11 08:30] LABS: Absolute Lymphocytes (CBC) 1.3 K/uL (0.7-4.9); Hematocrit 38.9 % (36.0-45.0); Lymphocytes % 16.2 % (15.3-44.8); RBC Red Blood Cell Count 4.36 M/uL (3.86-4.86)
[2022-08-11 08:34] LABS: Specific Gravity 1.011 (1.005-1.030); Urine Bacteria None Seen /HPF (<20); Urine Bilirubin NEGATIVE (Negative); Urine Blood 3+ (OVER) (Negative); Urine Clarity Clear (Clear); Urine Color Colorless (Yellow); Urine Glucose NEGATIVE (Negative); Urine Protein NEGATIVE (Negative); Urine RBC >50 /HPF (None Seen); Urine Urobilinogen Normal (Normal)
--- NOTE | 2022-08-11 09:13 | RAD REPORT ---
EXAM DESCRIPTION: CT - Abdomen Pelvis Wo Contrast - 08/11/2022 8:41 am CLINICAL HISTORY: FLANK PAIN COMPARISON: [place] Protocol dated 07/17/2022; Abdomen Pelvis W Contrast dated 11/14/2020; CT ABD PELV IS W CONTRAST dated 12/18/2013 TECHNIQUE: Thin cut axial CT imaging of the abdomen and pelvis was performed without IV contrast. Mu ltiplanar reformats were generated and reviewed. All CT scans are performed using dose optimization technique as appropriate and may include automated exposure control or mA/KV adjustment according to patient size. FINDINGS: No suspicious findings in the lung bases. The liver, spleen, and pancreas show no suspicious findings. Gallbladder and biliary tree are also wi thout suspicious finding. Symmetric renal contour, without suspicious parenchymal findings within limits of noncontrast techniq ue. Bilateral nonobstructing renal calculi, largest at the right mid to lower pole measuring 7 millim eter. On the left, the largest measures 3 millimeter at the left lower pole. Mild left hydronephrosis is noted. An obstructing 7 millimeter left vesicoureteral junction calculus is noted. No dilated bowel loops or bowel wall thickening. Sequelae of prior gastric bypass. No free air, free fluid or inflammatory stranding. No hernia, mass or bulky lymphadenopathy. The urinary bladder is wit hout significant finding. No suspicious bony findings. IMPRESSION: Mild left hydronephrosis. Obstructing 7 millimeter left vesicoureteral junction. Other bilateral nonobstructing renal calculi as above. The findings were communicated to Karen Baca on 08/11/2022 at 09:07 hours.
[2022-08-11] MEDS ORDERED: PROMETHAZINE INJ 25 MG/ML AMP ONE (09:21)
--- NOTE | 2022-08-11 09:31 | ER ---
Nurse's Notes [facility] Name: Cecy Zhang Age: 32 yrs Sex: Female : 1990 Arrival Date: 08/11/2022 Time: 07:46 Bed 8 Private MD: Diagnosis: Kidney stone;Flank pain Presentation: 08/11 07:56 Chief complaint: Patient states: left flank pain, was diagnosed with kidney stone, iw today she can't pee and has a lot of blood when she goes, she is vomiting because of the pain, she was told the stone was in her pelvis. Coronavirus screen: At this time, the client does not indicate any symptoms associated with coronavirus-19. Ebola Screen: Patient negative for fever greater than or equal to 101.5 degrees Fahrenheit, and additional compatible Ebola Virus Disease symptoms Patient denies exposure to infectious person. Patient denies travel to an Ebola-affected area in the 21 days before illness onset. No symptoms or risks identified at this time. Initial Sepsis Screen: Does the patient meet any 2 criteria? No. Patient's initial sepsis screen is negative. Does the patient have a suspected source of infection? No. Patient's initial sepsis screen is negative. Risk Assessment: Do you want to hurt yourself or someone else? Patient reports no desire to harm self or others. Onset of symptoms was August 11, 2022. 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 - Social history:: Smoking status: Patient reports the use of cigarette tobacco products, denies chronic smoking, but will smoke occasionally. Screenin:31 [facility] ED Fall Risk Assessment (Adult) History of falling in the last 3 months, cm9 including since admission No falls in past 3 months (0 pts) Confusion or Disorientation No (0 pts) Intoxicated or Sedated No (0 pts) Impaired Gait No (0 pts) Mobility Assist Device Used No (0 pt) Altered Elimination No (0 pt) Score/Fall Risk Level 0 - 2 = Low Risk. Abuse screen: Denies threats or abuse. Nutritional screening: No deficits noted. Tuberculosis screening: No symptoms or risk factors identified. Assessment: 08:31 General: Appears uncomfortable, Behavior is calm, cooperative, appropriate for age. cm9 Pain: Complains of pain in left low back and right low back Pain does not radiate. Pain at worst was 8 out of 10 on a pain scale. Quality of pain is described as pressure, sharp, stabbing, tender, Pain began 1 month. Neuro: No deficits noted. Level of Consciousness is awake, alert, obeys commands, Oriented to person, place, time, situation, Gait is steady. Cardiovascular: Capillary refill < 3 seconds Patient's skin is warm and dry. Respiratory: Airway is patent Respiratory effort is even, unlabored. GI: Abdomen is round non-distended, Reports nausea, vomiting. : Urine is dark, concentrated Reports inability to void, urgency, urinary frequency. EENT: No signs and/or symptoms were reported regarding the EENT system. Denies. Derm: No signs and/or symptoms reported regarding the dermatologic system. 10:01 Reassessment: Patient appears in no apparent distress at this time. No changes from ld1 previously documented assessment. Patient and/or family updated on plan of care and expected duration. Pain level reassessed. Patient is alert, oriented x 3, equal unlabored respirations, skin warm/dry/pink. Patient states feeling better. 10:02 GI: Bowel sounds present X 4 quads. ld1 Vital Signs: 07:58 BP 141 / 97; Pulse 90; Resp 16; Pulse Ox 100% on R/A; Weight 77.11 kg; Height 5 ft. 7 iw in. ; Pain 8/10; 08:31 BP 126 / 96; Pulse 65; Resp 18; Pulse Ox 99% on R/A; Pain 8/10; cm9 07:58 Body Mass Index 26.63 (77.11 kg, 170.18 cm) iw 07:58 Pain Scale: Adult iw 08:31 Pain Scale: Adult cm9 ED Course: 07:49 Patient arrived in ED. rg4 07:50 Ricardo Vela DO is Attending Physician. ms3 07:57 Triage completed. iw 07:58 Arm band placed on. iw 08:23 Missed attempt(s): 20 gauge in right antecubital area. ld1 08:31 Patient has correct armband on for positive identification. Placed in gown. Bed in low cm9 position. Call light in reach. Side rails up X 1. Pulse ox on. NIBP on. 08:31 No provider procedures requiring assistance completed. Inserted saline lock: 20 gauge cm9 in left antecubital area, using aseptic technique. 08:31 Inserted saline lock: Blood collected. cm9 08:43 CT Abd/Pelvis - Without Contrast In Process Unspecified. EDMS 09:28 Eddi Hernandez MD is Referral Physician. ms3 09:34 Nazanin Vela, LUKASZ is Primary Nurse. ld1 10:02 IV discontinued, intact, bleeding controlled, No redness/swelling at site. ld1 Administered Medications: 08:39 Drug: NS 0.9% IV 1000 ml Route: IV; Rate: 1 bolus; Site: left antecubital; cm9 08:39 Drug: Ondansetron IVP 4 mg Route: IVP; Site: left antecubital; cm9 08:40 Drug: TORadol - Ketorolac IVP 15 mg Route: IVP; Site: left antecubital; cm9 08:40 Drug: morphine IVP or IV 4 mg Route: IVP; Infused Over: 4 mins; Site: left antecubital; cm9 09:25 Drug: Promethazine IM 25 mg Route: IM; Site: right deltoid; ld1 10:01 Drug: HYDROcodone-acetaminophen PO 5 mg-325 mg 1 tabs Route: PO; ld1 10:01 Drug: Flomax PO 0.4 mg Route: PO; ld1 Medication: 10:02 VIS not applicable for this client. ld1 Outcome: 09:29 Discharge ordered by . ms3 10:02 Discharged to home ambulatory, with family. ld1 10:02 Condition: stable 10:02 Discharge instructions given to patient, family, Instructed on discharge instructions, follow up and referral plans. medication usage, Demonstrated understanding of instructions, follow-up care, medications, Prescriptions given X 2. 10:02 Patient left the ED. ld1 Signatures: Dispatcher [employer] EDTemi Mcdaniel RN RN iw Garcia, Rubi rg4 Ricardo Vela, DO ms3 Nazanin Vela RN RN ld1 Brea, Meg, RN RN cm9
--- NOTE | 2022-08-11 09:31 | EDPHYS ---
Physician Documentation [facility] Name: Cecy Zhang Age: 32 yrs Sex: Female : 1990 Arrival Date: 08/11/2022 Time: 07:46 Bed 8 Private MD: ED Physician Ricardo Vela HPI: 08/11 09:41 This 32 yrs old Female presents to ER via Ambulatory with complaints of Possible Kidney ms3 Stone. 09:41 32-year-old female with past medical history of hypertension presents for left-sided ms3 flank pain and urinary frequency. Patient states her pain is a 10/10 and described as throbbing. Patient denies alleviating or inciting factors. Patient notes she was seen on the for hematuria and did not have pain at that time. Patient followed up with Dr. Hernandez for a kidney stone was diagnosed.. 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 - Social history:: Smoking status: Patient reports the use of cigarette tobacco products, denies chronic smoking, but will smoke occasionally. ROS: 09:43 Constitutional: Negative for fever, and chills. Neck: Negative for injury, pain, and ms3 swelling, Cardiovascular: Negative for chest pain, and palpitations. Respiratory: Negative for shortness of breath, cough, wheezing, and pleuritic chest pain. 09:43 Abdomen/GI: Positive for Flank pain. 09:43 All other systems are negative. Exam: 09:43 Constitutional: This is a well developed, well nourished patient who is awake, alert, ms3 and in no acute distress. Head/Face: Normocephalic, atraumatic. Neck: Trachea midline, no cervical lymphadenopathy. Supple, full range of motion without nuchal rigidity, or vertebral point tenderness. No Meningismus. Chest/axilla: Normal chest wall appearance and motion. Nontender with no deformity. Cardiovascular: Regular rate and rhythm with a normal S1 and S2. No gallops, murmurs, or rubs. Normal PMI, no JVD. No pulse deficits. Respiratory: Lungs have equal breath sounds bilaterally, clear to auscultation and percussion. No rales, rhonchi or wheezes noted. No increased work of breathing, no retractions or nasal flaring. Abdomen/GI: Soft, non-tender, with normal bowel sounds. No distension or tympany. No guarding or rebound. No evidence of tenderness throughout. Skin: Warm, dry with normal turgor. Normal color with no rashes, no lesions, and no evidence of cellulitis. MS/ Extremity: Pulses equal, no cyanosis. Neurovascular intact. Full, normal range of motion. Vital Signs: 07:58 BP 141 / 97; Pulse 90; Resp 16; Pulse Ox 100% on R/A; Weight 77.11 kg; Height 5 ft. 7 iw in. ; Pain 8/10; 08:31 BP 126 / 96; Pulse 65; Resp 18; Pulse Ox 99% on R/A; Pain 8/10; cm9 07:58 Body Mass Index 26.63 (77.11 kg, 170.18 cm) iw 07:58 Pain Scale: Adult iw 08:31 Pain Scale: Adult cm9 MDM: 07:58 Patient medically screened. ms3 09:38 Differential diagnosis: nephrolithiasis, pyelonephritis, UTI. Data reviewed: vital ms3 signs, nurses notes, lab test result(s), radiologic studies, and as a result, I will discharge patient. I considered the following discharge prescriptions or medication management in the emergency department Medications were administered in the Emergency Department. See MAR. Counseling: I had a detailed discussion with the patient and/or guardian regarding: the historical points, exam findings, and any diagnostic results supporting the discharge/admit diagnosis, lab results, radiology results, the need for outpatient follow up, to return to the emergency department if symptoms worsen or persist or if there are any questions or concerns that arise at home. ED course: Discussed labs, CT finding with patient. Patient to follow-up Dr. Hernandez in 1 to 2 days. Patient understands and agrees with plan. All questions were answered. Return precautions discussed include worsening symptoms, or any other concerns. Patient given prescription for [place] 08/19/2024, after checking PDMP, and Flomax 0.4 mg p.o. daily. 08/11 07:59 Order name: CBC with Diff; Complete Time: 08:41 ms3 08/11 07:59 Order name: Test, Urine; Complete Time: 08:41 ms3 08/11 07:59 Order name: Urinalysis w/ reflexes; Complete Time: 08:41 ms3 08/11 07:59 Order name: CT Abd/Pelvis - Without Contrast; Complete Time: 09:14 ms3 08/11 07:59 Order name: IV Saline Lock; Complete Time: 08:39 ms3 08/11 07:59 Order name: Labs collected and sent; Complete Time: 08:39 ms3 Administered Medications: 08:39 Drug: NS 0.9% IV 1000 ml Route: IV; Rate: 1 bolus; Site: left antecubital; cm9 08:39 Drug: Ondansetron IVP 4 mg Route: IVP; Site: left antecubital; cm9 08:40 Drug: TORadol - Ketorolac IVP 15 mg Route: IVP; Site: left antecubital; cm9 08:40 Drug: morphine IVP or IV 4 mg Route: IVP; Infused Over: 4 mins; Site: left antecubital; cm9 09:25 Drug: Promethazine IM 25 mg Route: IM; Site: right deltoid; ld1 10:01 Drug: HYDROcodone-acetaminophen PO 5 mg-325 mg 1 tabs Route: PO; ld1 10:01 Drug: Flomax PO 0.4 mg Route: PO; ld1 Disposition Summary: 08/11/22 09:29 Discharge Ordered Location: Home ms3 Condition: Stable ms3 Diagnosis - Kidney stone ms3 - Flank pain ms3 Followup: ms3 - With: Eddi Hernandez MD - When: 1 - 2 days - Reason: Recheck today's complaints Discharge Instructions: - Discharge Summary Sheet ms3 - Kidney Stones, [id number] ms3 Forms: - Medication Reconciliation Form ms3 - Thank You Letter ms3 - Antibiotic Education ms3 - Prescription Opioid Use ms3 Prescriptions: - Flomax 0.4 mg Oral capsule - take 1 capsule by ORAL route every 24 hours; 15 capsule; Refills: 0, Product ms3 Selection Permitted Signatures: Dispatcher [employer] Temi Fuentes RN RN iw Sims, Marcus, DO DO ms3 Nazanin Vela RN RN ld1 Meg Guidry RN RN cm9 Corrections: (The following items were deleted from the chart) 09:43 09:41 32-year-old female with past medical history of hypertension presents for. ms3 ms3
[2022-08-11] MEDS ORDERED: TAMSULOSIN 0.4 MG SR CAP ONE (09:53)
[2022-08-11] MEDS ORDERED: HYDROCODONE/APAP 5/325 MG TAB ONE (09:53)
[2022-08-11 10:11] VITALS: BP 126/96; O2SAT 99
== END 2022-08-11 10:02 | disposition home or self-care (01) ==
LOC: ER 07:46
DX: N20.0 Calculus of kidney (principal); F17.210 Nicotine dependence, cigarettes, uncomplicated; I10 Essential (primary) hypertension; Z88.1 Allergy status to other antibiotic agents
CPT/HCPCS: 85025; 81001; 36415; 81025; 74176; 96375; 96372; 96374; 99284; J2550; J2405; J7030